=== PATIENT | female | born 1945 | race African-American/Black ===

== ENCOUNTER 2019-10-10 10:25 | Observation (INO) ==
[2019-10-10] MEDS ORDERED: SODIUM CHLORIDE 0.9% 1000ML 1,000 ML IV SCH (11:15)
[2019-10-10 11:35] LABS: Basophils # (auto) 0.02 K/uL (0-0.2); Basophils % (auto) 0.3 %; Eosinophils # (auto) 0.24 K/uL (0-0.5); Eosinophils % (auto) 3.8 %; Hematocrit (blood only) 36.4 % (37-47); Hemoglobin 11.4 g/dL (12.0-16.0); Immature Granulocytes # (auto) 0.02 K/uL (0.00-0.02); Immature Granulocytes % (auto) 0.3 %; Lymphocytes # (auto) 1.88 K/uL (1.2-3.4); Lymphocytes % (auto) 29.5 %; Mean Corpuscular Hemoglobin 28.6 pg (25-34); Mean Corpuscular Hgb Conc 31.3 g/dL (32-36); Mean Corpuscular Volume 91.5 fL (80-100); Mean Platelet Volume 11.1 fL (7.4-10.4); Monocytes # (auto) 0.42 K/uL (0.11-0.59); Monocytes % (auto) 6.6 %; Neutrophils # (auto) 3.79 K/uL (1.4-6.5); Neutrophils % (auto) 59.5 %; Platelet Count 189 K/uL (130-400); RDW Coefficient of Variation 15.5 % (11.5-14.5); RDW Standard Deviation 52.2 fL (36.4-46.3); Red Blood Count 3.98 M/uL (4.2-5.4); White Blood Count 6.37 K/uL (4.8-10.8)
[2019-10-10 11:46] LABS: Partial Thromboplastin Ratio 0.9; Partial Thromboplastin Time 25.4 Seconds (21.0-31.0); Prothrombin Time 10.7 Seconds (9.0-12.0)
[2019-10-10 11:54] LABS: Alanine Aminotransferase 14 U/L (12-78); Aspartate Aminotransferase 8 U/L (15-37); BUN Creatinine Ratio 10.8 (10-20); Blood Urea Nitrogen 13 mg/dl (7-18); Calcium 9.6 mg/dl (8.5-10.1); Carbon Dioxide 24 mmol/L (21-32); Chloride 112 mmol/L (98-107); Est GFR (African American) 52.8; Est GFR (Non-African American) 45.6; Glucose 93 mg/dl (70-99); Magnesium 2.2 mg/dl (1.8-2.4); Potassium 3.1 mmol/L (3.5-5.1); Sodium 142 mmol/L (136-145)
[2019-10-10 11:59] LABS: Alkaline Phosphatase 85 U/L (45-117); Bilirubin,Total 0.3 mg/dl (0.2-1); Globulin 3.9 gm/dl (2.5-4.0); Total Protein 7.9 gm/dl (6.4-8.2); Troponin I < 0.015 ng/ml (0-0.045)
[2019-10-10] MEDS ORDERED: OPTIRAY 320 125ml IV PRN (12:10)
--- NOTE | 2019-10-10 12:19 | Emergency Department Note ---
History of Present Illness General Chief complaint: Abnormal Labs/Diagnostic Testing Stated complaint: SOB, RESULTS OF CAT SCAN OF LUNGS Source: patient Mode of arrival: ambulatory Limitations: no limitations History of Present Illness Provider complaint: SOB, abnl CT scan Onset (ago): hour(s) 1 Maximum Pain Intensity: 0 Associated symptoms: + shortness of breath This patient is a 74-year-old female who presents to the emergency department with complaints of an abnormal CT scan. Patient states she has a thyroid pro blem and had a neck CT with her ENT physician as an outpatient. On that CT they found bilateral pulmonary emboli. The patient was sent here for further management. She complains of some shortness of breath, but denies chest pain or cough. She has had no fever. Patient denies previous history of PE. She denies any significant leg or foot swelling but did state that her shoes were feeling tight this morning. Home Medications Home Medications Medication Instructions Recorded Confirmed Type acetazolamide 500 mg 500 mg PO BID 05/25/19 10/10/19 History capsule,extended release aspirin 81 mg tablet,delayed 81 mg PO DAILY 05/25/19 10/10/19 History release atorvastatin 10 mg tablet 10 mg PO DAILY 05/25/19 10/10/19 History brimonidine 0.2 %-timolol 0.5 % 1 drops OP BID 05/25/19 10/10/19 History eye drops hydrochlorothiazide 12.5 mg tablet 12.5 mg PO DAILY 05/25/19 10/10/19 History latanoprost 0.005 % eye drops 1 drops OP TID ml 05/25/19 10/10/19 History lisinopril 5 mg tablet 5 mg PO DAILY 05/25/19 10/10/19 History pantoprazole 40 mg tablet,delayed 40 mg PO DAILY 05/25/19 10/10/19 History release potassium chloride 10 mEq 10 meq PO DAILY 05/25/19 10/10/19 History tablet,extended release travoprost 0.004 % eye drops 1 drops OP QPM 05/25/19 10/10/19 History uwdguuhb-tht-ipcni acid 0.4 1 tab PO DAILY 05/31/19 10/10/19 History mg-lycopene 300 mcg-lutein 250 mcg tablet omega-3 fatty acids 1,000 mg 1,000 mg PO DAILY 05/31/19 10/10/19 History capsule vitamin E (dl, acetate) 400 unit 400 units PO DAILY 05/31/19 10/10/19 History capsule Allergies Allergy/AdvReac Type Severity Reaction Status Date / Time atorvastatin AdvReac stomach Verified 10/10/19 11:20 upset. brand name ok Past Med/Surg History Medical History (Updated 10/10/19 @ 13:15 by Carisa Collins MD) Thyroid disease (Acute) Social History Preferred Language: Frisian Feels Safe at Home: Yes Smoking Status: Never smoker Review of Systems See HPI for pertinent positives & negatives. and A total of 10 systems reviewed and were otherwise negative Physical Exam Vital Signs Vital Signs - 24 hr 10/10/19 10:29 10/10/19 11:00 10/10/19 11:50 Temperature 36.9 C Temperature Source Oral Pulse Rate 83 62 Pulse Rhythm Regular Respiratory Rate 18 20 Respiratory Effort / Characteristics Non-Labored Respiratory Depth Normal Respiratory Pattern Regular Blood Pressure 128/82 Blood Pressure Mean 97 Blood Pressure Position Sitting Pulse Oximetry 97 95 98 Oxygen Delivery Method Room Air Room Air Room Air Sepsis New/Unexplained Change in Mental Status No Sepsis Action Taken by Nursing No Action Required 10/10/19 12:24 Temperature Temperature Source Pulse Rate 64 Pulse Rhythm Respiratory Rate 22 Respiratory Effort / Characteristics Respiratory Depth Respiratory Pattern Blood Pressure 167/99 H Blood Pressure Mean 121 Blood Pressure Position Pulse Oximetry 99 Oxygen Delivery Method Room Air Sepsis New/Unexplained Change in Mental Status Sepsis Action Taken by Nursing Vital signs reviewed. General: Well-appearing 74-year-old female, in no significant distress. HEENT: No scleral icterus, PERRLA, neck supple. Atraumatic. Cardiovascular: Regular rate and rhythm, no extra sounds. Pulmonary: Clear to auscultation bilaterally, normal work of breathing. Abdomen: Soft, nontender, nondistended, positive bowel sounds. Musculoskeletal: Atraumatic, no peripheral edema. Neurologic: Patient awake alert and oriented x 3 Skin: Warm, dry, no rash Course Administered Medications Sodium Chloride (Nss 1000ml) 1,000 mls @ 125 mls/hr IV .Q8H NAIDA Stop: 10/10/19 19:14 Last Infusion: 10/10/19 11:33 Dose: 0 mls/hr Documented by: [id number] Admin: 10/10/19 11:32 Dose: 125 mls/hr Documented by: [id number] Ioversol (Optiray 320 125ml) 120 ml IV ONCE PRN PRN Reason: Interaction Checking Stop: 10/14/19 12:09 Last Admin: 10/10/19 12:11 Dose: 120 ml Documented by: [id number] Medical Decision Making Differential Diagnosis Differential diagnosis: Etiologies such as infections, reactive airway disease, COPD, pneumonia, pleural effusion, pulmonary edema, ARDS, pneumothorax, CHF, cardiac ischemia, cardiac tamponade, dysrhythmia, anemia, pulmonary embolism, musculoskeletal, gastrointestinal process, as well as others were entertained. Medical Records Attestation: I reviewed the patient's medical records. CT scan with and without contrast performed on 10/09/2019 at 3:13 PM [facility] scan of the neck was performed before and after administration of IV contrast. Comparison made with a nuclear medicine parathyroid scan 08/24/2019 and thyroid ultrasound 08/21/2019 Findings: There are partially imaged bilateral pulmonary emboli in the visualized main and lobar segments of the pulmonary arteries. An arterially enhancing ovoid nodule is seen in the right tracheoesophageal groove posterior to the right thyroid lobe, measuring up to 15 mm in diameter. The node is hypodense to the thyroid gland on noncontrast imaging with an associated polar vessel, and is consistent with a parathyroid adenoma. The thyroid gland is mildly heterogeneous with tiny nodules. No suspicious cer vical lymphadenopathy is identified. The upper aerodigestive tract and major imaged vascular structures are patent. The vocal cords are symmetric. The maxilla and mandible are edentulous. Degenerative changes are present in the cervical spine. Impression: 1. bilateral pulmonary emboli in the visualized main and lobar segments of the pulmonary arteries. 2.15 mm parathyroid adenoma in the right tracheoesophageal groove posterior to the right thyroid lobe. Radiologist: Bryce Bragg Home Medications Current Medication List: was personally reviewed by me Laboratory Data Attestation: I reviewed the patient's lab results. Result diagrams: 10/10/19 11:25 10/10/19 11:25 Lab Results 10/10/19 10/10/19 10/10/19 Range/Units 11:25 11:25 11:25 WBC 6.37 (4.8-10.8) K/uL RBC 3.98 L (4.2-5.4) M/uL Hgb 11.4 L (12.0-16.0) g/dL Hct 36.4 L (37-47) % MCV 91.5 (80-100) fL MCH 28.6 (25-34) pg MCHC 31.3 L (32-36) g/dL RDW Std Deviation 52.2 H (36.4-46.3) fL RDW Coeff of Oscar 15.5 H (11.5-14.5) % Plt Count 189 (130-400) K/uL MPV 11.1 H (7.4-10.4) fL Immature Gran % (Auto) 0.3 % Neut % (Auto) 59.5 % Lymph % (Auto) 29.5 % Bertie % (Auto) 6.6 % Eos % (Auto) 3.8 % Baso % (Auto) 0.3 % Immature Gran # (Auto) 0.02 (0.00-0.02) K/uL Neut # (Auto) 3.79 (1.4-6.5) K/uL Lymph # (Auto) 1.88 (1.2-3.4) K/uL Bertie # (Auto) 0.42 (0.11-0.59) K/uL Eos # (Auto) 0.24 (0-0.5) K/uL Baso # (Auto) 0.02 (0-0.2) K/uL PT 10.7 (9.0-12.0) Seconds INR 1.0 (0.9-1.1) APTT 25.4 (21.0-31.0) Seconds PTT Ratio 0.9 Sodium 142 (136-145) mmol/L Potassium 3.1 L (3.5-5.1) mmol/L Chloride 112 H (98-107) mmol/L Carbon Dioxide 24 (21-32) mmol/L Anion Gap 6.0 (3-11) BUN 13 (7-18) mg/dl Creatinine 1.19 (0.6-1.2) mg/dl Est Cr Clr Drug Dosing Not Reportable Est GFR ( Amer) 52.8 Est GFR (Non-Af Amer) 45.6 BUN/Creatinine Ratio 10.8 (10-20) Glucose 93 (70-99) mg/dl Calcium 9.6 (8.5-10.1) mg/dl Magnesium 2.2 (1.8-2.4) mg/dl Total Bilirubin 0.3 (0.2-1) mg/dl AST 8 L (15-37) U/L ALT 14 (12-78) U/L Alkaline Phosphatase 85 (45-117) U/L Troponin I < 0.015 (0-0.045) ng/ml Total Protein 7.9 (6.4-8.2) gm/dl Albumin 4.0 (3.4-5.0) gm/dl Globulin 3.9 (2.5-4.0) gm/dl Albumin/Globulin Ratio 1.0 (0.9-2) Imaging Data Radiologist's Impression: US venous doppler LE BI CLINICAL HISTORY: 74 years-old Female presenting with acute PE, shortness of breath, evaluate for DVT. TECHNIQUE: Real-time grayscale and color and spectral Doppler ultrasound imaging of the veins of the bilateral lower extremities was performed. Compression and augmentation were also utilized. COMPARISON: None. FINDINGS: RIGHT: Common femoral vein: Patent. Greater saphenous vein (superficial): Patent. Deep femoral vein: Patent. Femoral vein: Patent. Popliteal vein: Patent. Calf veins: Patent. LEFT: Common femoral vein: Filling defect consistent with thrombus, which expands the lumen and is acute appearing. Greater saphenous vein (superficial): Patent. Deep femoral vein: Patent. Femoral vein: Patent. Popliteal vein: Patent. Calf veins: Patent. Other: None. IMPRESSION: 1. Acute deep venous thrombosis in the left common femoral vein. 2. No evidence of deep venous thrombosis in the right lower extremity. The report will be called/faxed according to standard departmental protocol for a critical finding. ACT 112: Negative or not required by law. Electronically signed by: James Connor M.D. 10/10/2019 1:13 PM Dictated: 10/10/19 1310 Transcribed: 10/10/[address] angio chest PE protocol CT DOSE: 487.03 mGycm HISTORY: 74 years-old Female with PE. Acute shortness of breath TECHNIQUE: Multiple CTA images of the chest were obtained after the intravenous administration of 120 ml Optiray 320. Coronal and sagittal MIPS were obtained from the axial data set and were submitted for review. All measurements were obtained according to NASCET criteria. A dose lowering technique was utilized a dhering to the principles of ALARA. COMPARISON: None FINDINGS: CTA: Moderate cardiomegaly. No pericardial effusion. No thoracic aortic aneurysm or dissection. Patency of the imaged great vessels. Pulmonary emboli are noted within the right greater than left main pulmonary arteries extending into the left lower lobar, segmental and subsegmental branches as well as into the lobar, segmental and subsegmental branches of the right upper, middle and lower lobes. No saddle embolus. No evidence of right heart strain. CT CHEST: Heterogeneous and mildly enlarged thyroid. No adenopathy by CT size criteria. Dependent subsegmental bibasilar atelectasis. No large pulmonary infarct. No pneumothorax, pleural effusion or overt pulmonary edema. No airspace consolidation typical for pneumonia. No suspicious pulmonary nodules or masses. Central airways appear patent. Colonic diverticulosis. Nonspecific mildly prominent hepatogastric lymph nodes. Indeterminate mildly hypodense 10 mm lesion of the superior pole right kidney. Soft tissues are unremarkable. Degenerative changes of the shoulders and spine. There are no suspicious osseous lesions. IMPRESSION: 1. Pulmonary emboli of the main, lobar, segmental and subsegmental branches. 2. No evidence of right heart strain, pleural effusion or large pulmonary infarct 3. Cardiomegaly. ACT 112: Negative or not required by law. The above report was generated using voice recognition software. It may contain grammatical, syntax or spelling errors. Electronically signed by: Frandy Aranda M.D. 10/10/2019 12:21 PM Dictated: 10/10/19 1211 Transcribed: 10/10/19 1211 ECG Data Attestation: I personally reviewed and interpreted this ECG as follows: Indication: + chest pain and + SOB/dyspnea Rate (beats per minute): 74 Rhythm: + sinus with SA ECG Intervals/blocks: no Normal QRS (low voltage) ECG Findings: + Q waves (Inferior) and + Other (L atrial enlargement) Additional Comments: An order for cardiac monitoring was placed and the patient is found to be in a normal sinus rhythm at 83 bpm. Blood Pressure Blood Pressure Findings: Normal blood pressure Blood Pressure Disposition: did not require urgent referral MDM Narrative This patient was evaluated and appeared to be in no significant distress. IV access was obtained and laboratory work was drawn. The patient was placed on the cardiac rn and found to be in a normal sinus rhythm. Vital signs have remained stable. CT of the neck was obtained from the outside facility where bilateral pulmonary emboli were discovered. Follow-up chest CT was performed and reaffirms the diagnosis of bilateral pulmonary emboli. Ultrasound of the bilateral lower extremity reveals evidence of an acute DVT in the left common femoral vein. There is no evidence of right heart strain. Patient was given 1 00 mg of subcutaneous Lovenox. EKG reveals sinus rhythm with sinus arrhythmia and left atrial enlargement. Due to the patient's concerning history for a parathyroid adenoma and bilateral PE with an acute DVT in the left common femoral vein, the patient will be evaluated by the hospitalist service for further management. Patient was made aware of the findings and agrees. She was concerned about her glaucoma medications which were ordered as well as a meal tray. The [facility] hospitalist team has been consulted. Impression & Plan Bilateral pulmonary embolism, Parathyroid adenoma Discharge Plan Visit Data Chief Complaint: Abnormal Labs/Diagnostic Testing Stated Complaint: SOB, RESULTS OF CAT SCAN OF LUNGS ED Provider: Carisa Collins Discharge Problem: Bilateral pulmonary embolism, Parathyroid adenoma Forms Stand Alone Forms: [facility] Prescriptions Prescriptions: No Action acetazolamide 500 mg capsule, extended release 500 mg PO BID RF: 0 aspirin [Adult Aspirin Regimen] 81 mg tablet,delayed release (DR/EC) 81 mg PO DAILY RF: 0 Combigan 0.2-0.5 % drops 1 drops OP BID RF: 0 hydrochlorothiazide 12.5 mg tablet 12.5 mg PO DAILY RF: 0 potassium chloride [Klor-Con 10] 10 mEq tablet extended release 10 meq PO DAILY RF: 0 latanoprost 0.005 % drops 1 drops OP TID RF: 0 atorvastatin [Lipitor] 10 mg tablet 10 mg PO DAILY RF: 0 lisinopril 5 mg tablet 5 mg PO DAILY RF: 0 pantoprazole [Protonix] 40 mg tablet,delayed release (DR/EC) 40 mg PO DAILY RF: 0 Travatan Z 0.004 % drops 1 drops OP QPM RF: 0 vitamin E (dl, acetate) 400 unit capsule 400 units PO DAILY RF: 0 omega-3 fatty acids 1,000 mg capsule 1,000 mg PO DAILY RF: 0 Centrum Silver 0.4-300-250 mg-mcg-mcg tablet 1 tab PO DAILY RF: 0
--- NOTE | 2019-10-10 12:23 | CT Scan Report ---
CT angio chest PE protocol CT DOSE: 487.03 mGycm HISTORY: 74 years-old Female with PE. Acute shortness of breath TECHNIQUE: Multiple CTA images of the chest were obtained after the intravenous administration of 120 ml Optiray 320. Coronal and sagittal MIPS were obtained from the axial data set and were submitted for review. All measurements were obtained according to NASCET criteria. A dose lowering technique w as utilized adhering to the principles of ALARA. COMPARISON: None FINDINGS: CTA: Moderate cardiomegaly. No pericardial effusion. No thoracic aortic aneurysm or dissection. Patency of the imaged great vessels. Pulmonary emboli are noted within the right greater than left main pulmona ry arteries extending into the left lower lobar, segmental and subsegmental branches as well as into the lobar, segmental and subsegmental branches of the right upper, middle and lower lobes. No saddle embolus. No evidence of right heart strain. CT CHEST: Heterogeneous and mildly enlarged thyroid. No adenopathy by CT size criteria. Dependent subsegmental bibasilar atelectasis. No large pulmonary infarct. No pneumothorax, pleural effusion or overt pulmona ry edema. No airspace consolidation typical for pneumonia. No suspicious pulmonary nodules or masses. Central airways appear patent. Colonic diverticulosis. Nonspecific mildly prominent hepatogastric lymph nodes. Indeterminate mildly hypodense 10 mm lesion of the superior pole right kidney. Soft tissues are unremarkable. Degenerative changes of the shoulders and spine. There are no suspicious osseous lesions. IMPRESSION: 1. Pulmonary emboli of the main, lobar, segmental and subsegmental branches. 2. No evidence of right heart strain, pleural effusion or large pulmonary infarct 3. Cardiomegaly. ACT 112: Negative or not required by law. The above report was generated using voice recognition software. It may contain grammatical, syntax o r spelling errors. Electronically signed by: Frandy Aranda M.D. 10/10/2019 12:21 PM
[2019-10-10] MEDS ORDERED: ENOXAPARIN 100 MG/1ML SYR SQ ONE (12:48)
[2019-10-10] MEDS ORDERED: BRIMONIDINE TART 0.2% OP SOLN PER DROP CHARGE OP STA (13:07)
[2019-10-10] MEDS ORDERED: TIMOLOL MALEATE 0.5% OP SOLN 5 ML BTL OP STA (13:07)
[2019-10-10] MEDS ORDERED: acetaZOLAMIDE 250 MG TAB PO STA (13:07)
[2019-10-10] MEDS ORDERED: LATANOPROST 0.005% OP SOLN 2.5 ML BTL OP STA (13:11)
--- NOTE | 2019-10-10 13:14 | Ultrasound Report ---
US venous doppler LE BI CLINICAL HISTORY: 74 years-old Female presenting with acute PE, shortness of breath, evaluate for DVT . TECHNIQUE: Real-time grayscale and color and spectral Doppler ultrasound imaging of the veins of the bilateral lower extremities was performed. Compression and augmentation were also utilized. COMPARISON: None. FINDINGS: RIGHT: Common femoral vein: Patent. Greater saphenous vein (superficial): Patent. Deep femoral vein: Patent. Femoral vein: Patent. Popliteal vein: Patent. Calf veins: Patent. LEFT: Common femoral vein: Filling defect consistent with thrombus, which expands the lumen and is acute ap pearing. Greater saphenous vein (superficial): Patent. Deep femoral vein: Patent. Femoral vein: Patent. Popliteal vein: Patent. Calf veins: Patent. Other: None. IMPRESSION: 1. Acute deep venous thrombosis in the left common femoral vein. 2. No evidence of deep venous thrombosis in the right lower extremity. The report will be called/faxed according to standard departmental protocol for a critical finding. ACT 112: Negative or not required by law. Electronically signed by: James Connor M.D. 10/10/2019 1:13 PM
[2019-10-10] MEDS ORDERED: BRIMONIDINE TARTRATE 0.2% 5ML OP SCH (13:30)
[2019-10-10] MEDS ORDERED: POTASSIUM CHLORIDE 20 MEQ TABCR PO STA (13:55)
--- NOTE | 2019-10-10 14:03 | History & Physical Report ---
Date of Service October 10, 2019 Assessment & Plan (1) Bilateral pulmonary embolism: (2) DVT (deep venous thrombosis): Pt is 74 y/o F with PMH hyperparathyroidism, h/o hypercalcemia, thyroid nodules, CKD III, GERD, HTN, HLD presented to ER for incidental PE's found out outpatient CT neck on 10/09/2019 Denies any increased SOB, CP, denies pleuritic CP, LE edema or warmth, or new BLE pain. In ER Afebrile, P: 83, R: 18, BP: 128/82, 167/99, 97% on RA CTA CHEST:1. Pulmonary emboli of the main, lobar, segmental and subsegmental branches. 2. No evidence of right heart strain, pleural effusion or large pulmonary infarct. 3. Cardiomegaly. BLE VENOUS DOPPLER: 1. Acute deep venous thrombosis in the left common femoral vein. 2. No evidence of deep venous thrombosis in the right lower extremity. -In ER given Lovenox 1mg/kg -Pt without CP, SOB, hypoxia or tachycardia -Continue with Lovenox SQ for now with plan to transition or oral agent -CBC, BMP in am (3) Hypokalemia: K: 3.1 -Replace and monitor -Plan to resume pt's home potassium 10meq daily (4) HTN (hypertension): -Continue lisinopril, HCTZ (5) CKD (chronic kidney disease), stage III: Cr: 1.19. 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 Previous US neck showed possible parathyroid adenoma. It was recommended she follow with ENT for parathyroidectomy. ENT- Dr Bateman at [facility]; planning for parathyroidectomy in the future 4D CT neck on 10/09/2019: bilateral pulmonary emboli in main and lobar segments, 15mm parathyroid adenoma in the right tracheoesophageal groove posterior to the right thyroid lobe (8) GERD (gastroesophageal reflux disease): -Continue PPI (9) HLD (hyperlipidemia): -Continue Lipitor DVT Prophylaxis -On Lovenox for PE, DVT that were present upon arrival Full Code as per discussion with pt Follows with Dr Pate for routine care Pt was seen and care coordinated with Dr Pereira. See addendum History of Present Illness Chief Complaint: Abnormal neck ct scan Primary Care Provider: Yosvany Pate DO Pt is 74 y/o F with PMH hyperparathyroidism, h/o hypercalcemia, thyroid nodules, CKD III, GERD, HTN, HLD presented to ER for incidental PE's found out outpatient CT neck yesterday. Pt following with endocrine - Dr Garcia at [facility] for hyperparathyroidism. Previous US neck showed possible parathyroid adenoma. It was recommended she follow with ENT for parathyroidectomy. Pt seen by ENT Dr Bateman at [facility] and had 4D CT neck on 10/09/2019 with results of bilateral pulmonary emboli in main and lobar segments, 15mm parathyroid adenoma in the right tracheoesophageal groove posterior to the right thyroid lobe. Pt was referred to ER today for further evaluation. Pt reports SOB with exertion for greater than one year and denies any increased SOB recently. Reports intermittent "twinge" to her left chest that lasts a few seconds and can occur at rest or walking that has occurred for at least one year. Denies any increased CP or pleuritic CP. Denies cough, dizziness, syncope. Pt reports chronic knee pain with radiation down leg with walking. Denies any noted edema or warmth to lower extremities and denies any other extremity pain. No recent surgery or procedure. States less active over the years as she is afraid if walks too much her legs will give out and she will fall. No personal h/o DVT or PE in past. Reports her mother had H/O blood clots age 80's. Denies fever/chills, diaphoresis, N/V/D/C, CABRERA, dizziness, syncope, vision changes, neck pain, orthopnea, palpitations, cough, sore throat, choking, otalgia, rhinorrhea, abdominal pain, paresthesias, rashes, urinary symptoms. Allergies Allergy/AdvReac Type Severity Reaction Status Date / Time atorvastatin AdvReac stomach Verified 10/10/19 11:20 upset. brand name ok Home Medications Home Medications Medication Instructions Recorded Confirmed Type acetazolamide 500 mg 500 mg PO BID 05/25/19 10/10/19 History capsule,extended release aspirin 81 mg tablet,delayed 81 mg PO DAILY 05/25/19 10/10/19 History release brimonidine 0.2 %-timolol 0.5 % 1 drops OP BID 05/25/19 10/10/19 History eye drops hydrochlorothiazide 12.5 mg tablet 12.5 mg PO PM 05/25/19 10/10/19 History latanoprost 0.005 % eye drops 1 drops OP TID ml 05/25/19 10/10/19 History lisinopril 5 mg tablet 5 mg PO PM 05/25/19 10/10/19 History pantoprazole 40 mg tablet,delayed 40 mg PO DAILY 05/25/19 10/10/19 History release potassium chloride 10 mEq 10 meq PO DAILY 05/25/19 10/10/19 History tablet,extended release travoprost 0.004 % eye drops 1 drops OP QPM 05/25/19 10/10/19 History skfcorkm-dxh-pdmfk acid 0.4 1 tab PO DAILY 05/31/19 10/10/19 History mg-lycopene 300 mcg-lutein 250 mcg tablet omega-3 fatty acids 1,000 mg 1,000 mg PO DAILY 05/31/19 10/10/19 History capsule vitamin E (dl, acetate) 400 unit 400 units PO DAILY 05/31/19 10/10/19 History capsule atorvastatin [Lipitor] 10 mg PO PM 10/10/19 10/10/19 History Past Med/Surg History Medical History CKD (chronic kidney disease), stage III GERD (gastroesophageal reflux disease) HLD (hyperlipidemia) HTN (hypertension) Thyroid disease (Acute) Surgical History Hx of tonsillectomy Family History Other Diabetes Social History Preferred Language: [place] Leonean Feels Safe at Home: Yes Smoking Status: Never smoker Review of Systems Review of Systems: All systems reviewed & are unremarkable except as noted in HPI & below Physical Exam Physical Exam: General: no distress, overweight Head: normocephalic, atraumatic Eyes: PERRL, EOM's intact, conjunctiva non-injected, anicteric ENT: normal inspection external ears, nose, mucous membranes moist Neck: supple, trachea midline Lungs: clear, no respiratory distress, no wheezing/rhonchi/rales; talkative and speaks in full sentences CV: RRR, no pretibial edema Abd: normal BS, soft, non-tender Ext: no cyanosis, no calf tenderness; scattered spider veins to BLE Neuro: A&O x 3, no focal deficits noted, normal affect Skin: warm, dry Results & Data Results & Data ([facility]) Vital Signs (Past 12 Hours) Vital Signs Temp Pulse Resp BP Pulse Ox 10/10/19 12:24 64 22 167/99 H 99 10/10/19 11:50 62 20 98 10/10/19 11:00 95 10/10/19 10:29 36.9 C 83 18 128/82 97 Laboratory Results Short CBC 10/10/19 Range/Units 11:25 WBC 6.37 (4.8-10.8) K/uL Hgb 11.4 L (12.0-16.0) g/dL Hct 36.4 L (37-47) % Plt Count 189 (130-400) K/uL BMP 10/10/19 11:25 Sodium 142 Potassium 3.1 L Chloride 112 H Carbon Dioxide 24 BUN 13 Creatinine 1.19 Glucose 93 Calcium 9.6 Cardiac Enzymes 10/10/19 Range/Units 11:25 Troponin I < 0.015 (0-0.045) ng/ml Liver Function 10/10/19 Range/Units 11:25 Total Bilirubin 0.3 (0.2-1) mg/dl AST 8 L (15-37) U/L ALT 14 (12-78) U/L Alkaline Phosphatase 85 (45-117) U/L Albumin 4.0 (3.4-5.0) gm/dl Diagnostic Findings CTA CHEST: IMPRESSION: 1. Pulmonary emboli of the main, lobar, segmental and subsegmental branches. 2. No evidence of right heart strain, pleural effusion or large pulmonary infarct 3. Cardiomegaly. BLE VENOUS DOPPLER: IMPRESSION: 1. Acute deep venous thrombosis in the left common femoral vein. 2. No evidence of deep venous thrombosis in the right lower extremity. ECG Rhythm: sinus with SA Code Status & VTE Plan VTE Prophylaxis Plan VTE Prophylaxis will be ordered: Yes Supervising Physician Co-Signing Physician Notes Attending addendum; The patient was seen and examined in medical telemetry unit She is 74-year-old female with significant past medical history of hyperparathyroidism under investigation for possible surgery, thyroid nodule, CKD stage III, hypertension, hyperlipidemia and GERD was brought into emergency room with abnormal CT scan finding of the neck which showed pulmonary embolism. She has been complaining of shortness of breath with exertion for the last 1 year or so Denies any chest pain and/or palpitation, no fever and/or chills CTA did show extensive bilateral pulmonary embolism and ultrasound which showed left lower extremity DVT On examination No apparent distress at rest Hemodynamically stable Chest-clear to auscultate bilaterally Heart-S1-S2, regular Abdomen-benign Extremities-trace edema bilaterally more on the left than the right DIRECTOR BROADCAST-alert, awake and oriented x3 Admission labs and imaging studies reviewed CTA did show pulmonary emboli of the main, lobar, segmental and subsegmental branches without any evidence of right heart strain or any pulmonary infarct Started with subcu Lovenox and discussed with the patient about oral anticoagulants with Coumadin or NOAC History of blood clot with mother Agree with assessment and plan as outlined above by HEDY Montez Dr
[2019-10-10] MEDS ORDERED: lisinopriL 5 MG TAB PO SCH (14:59)
[2019-10-10] MEDS ORDERED: ENOXAPARIN 1 MG/KG SQ SCH (14:59)
[2019-10-10] MEDS ORDERED: hydroCHLOROthiazide 25 MG TAB PO SCH (14:59)
[2019-10-10] MEDS ORDERED: ACETAMINOPHEN 325 MG TAB PO PRN (14:59)
[2019-10-10] MEDS ORDERED: LATANOPROST 0.005% OP SOLN 2.5 ML BTL OP SCH (14:59)
[2019-10-10] MEDS ORDERED: POTASSIUM CHLORIDE 20 MEQ TABCR PO ONE (18:00)
[2019-10-10] MEDS: acetaZOLAMIDE 500 MG CAPCR PO SCH (20:47)
[2019-10-10] MEDS ORDERED: TRAVOPROST Z 0.004% OPH SOLN 2.5 ML BTL OP SCH (21:00)
[2019-10-10] MEDS ORDERED: ATORVASTATIN 10 MG TAB PO SCH (21:00)
[2019-10-11] MEDS ORDERED: ENOXAPARIN 100 MG/1ML SYR SQ SCH ×2 (01:00→12:00)
[2019-10-11 05:30] LABS: Hematocrit (blood only) 36.9 % (37-47); Hemoglobin 11.4 g/dL (12.0-16.0); Mean Corpuscular Hemoglobin 28.4 pg (25-34); Mean Corpuscular Hgb Conc 30.9 g/dL (32-36); Mean Corpuscular Volume 91.8 fL (80-100); Mean Platelet Volume 10.8 fL (7.4-10.4); Platelet Count 190 K/uL (130-400); RDW Coefficient of Variation 15.6 % (11.5-14.5); RDW Standard Deviation 52.4 fL (36.4-46.3); Red Blood Count 4.02 M/uL (4.2-5.4); White Blood Count 6.73 K/uL (4.8-10.8)
[2019-10-11 05:58] LABS: BUN Creatinine Ratio 7.8 (10-20); Calcium 10.1 mg/dl (8.5-10.1); Est GFR (African American) 47.5; Potassium 3.2 mmol/L (3.5-5.1)
[2019-10-11] MEDS: acetaZOLAMIDE 500 MG CAPCR PO SCH (07:58)
[2019-10-11] MEDS ORDERED: ASPIRIN 81 MG ECTAB PO SCH (09:00)
[2019-10-11] MEDS ORDERED: POTASSIUM CHLORIDE 20 MEQ TABCR PO ONE (09:00)
[2019-10-11] MEDS ORDERED: POTASSIUM CHLORIDE 10 MEQ TABCR PO SCH (09:00)
[2019-10-11] MEDS ORDERED: PANTOprazole 40 MG TAB PO SCH (09:00)
[2019-10-11] MEDS ORDERED: CEROVITE ADV FORMULA TAB PO SCH (09:00)
[2019-10-11] MEDS ORDERED: APIXABAN 5 MG TABLET PO SCH (12:00)
--- NOTE | 2019-10-11 14:45 | Electrocardiogram Report ---
Test Reason : Blood Pressure : / mmHG Vent. Rate : 074 BPM Atrial Rate : 074 BPM P-R Int : 206 ms QRS Dur : 076 ms QT Int : 402 ms P-R-T Axes : 018 -28 -01 degrees QTc Int : 446 ms Poor data quality, interpretation may be adversely affected Sinus rhythm with marked sinus arrhythmia Possible Left atrial enlargement Low voltage QRS Borderline ECG No previous ECGs available Confirmed by Fernando Morales ([id number]) on 10/11/2019 2:44:50 PM Referred By: REFERRED SELF Confirmed By:Fernando Morales
--- NOTE | 2019-10-11 14:45 | Hospitalist Progress Note ---
Date of Service October 11, 2019 Assessment & Plan (1) Bilateral pulmonary embolism: (2) DVT (deep venous thrombosis): Pt is 74 y/o F with PMH hyperparathyroidism, h/o hypercalcemia, thyroid nodules, CKD III, GERD, HTN, HLD presented to ER for incidental PE's found out outpatient CT neck on 10/09/2019 Denies any increased SOB, CP, denies pleuritic CP, LE edema or warmth, or new BLE pain. CTA CHEST showed evidence of Pulmonary emboli of the main, lobar, segmental and subsegmental branches. No evidence of right heart strain, pleural effusion or large pulmonary infarct. BLE VENOUS DOPPLER showed acute deep venous thrombosis in the left common femoral vein. No evidence of deep venous thrombosis in the right lower extremity. 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 Previous US neck showed possible parathyroid adenoma. It was recommended she follow with ENT for parathyroidectomy. ENT- Dr Bateman at [facility]; planning for parathyroidectomy in the future 4D CT neck on 10/09/2019: bilateral pulmonary emboli in main and lobar segments, 15mm parathyroid adenoma in the right tracheoesophageal groove posterior to the right thyroid lobe (8) GERD (gastroesophageal reflux disease): Continue PPI (9) HLD (hyperlipidemia): Continue Lipitor DVT Prophylaxis On Lovenox, transition to Eliquis CODE Status Full Code Disposition Will discharge home today Update provided to roxana Debbie Follow up with Dr. Torres on 10/16 @ 11:20 AM Admission and Anticipated Discharge Date Admission Date: October 10, 2019 Subjective Pt was seen and examined Lying in bed with no distress Pt said that she feels ok She said that he does have SOB on exertion Update provided to the daughter Debbie over the phone Denies any chest pain, palpitation, dizziness and SOB Physical Exam Physical Exam: General- No acute distress Head- atraumatic Eyes- PERRL, EOMI, ENT- oropharynx clear Neck- supple, no JVD Lungs- clear to auscultation Heart- regular rhythm; no murmur Abdomen- normal bowel sounds, soft, nontender Extremities- no calf tenderness Neuro- alert, oriented x 3; PERRL, EOMI; no facial palsy; no dysarthria Skin- warm & dry Results & Data Results & Data ([facility]) Vital Signs (Past 12 Hours) Vital Signs Temp Pulse Pulse Resp BP BP Pulse Ox 10/11/19 11:35 37.0 C 64 20 151/84 H 100 10/11/19 07:38 66 10/11/19 06:26 36.9 C 78 19 109/72 99 10/11/19 03:58 36.4 C L 87 18 116/78 97
--- NOTE | 2019-10-13 21:51 | Discharge Summary ---
Date of Service October 11, 2019 Admission HPI Per Admitting Provider Pt is 74 y/o F with PMH hyperparathyroidism, h/o hypercalcemia, thyroid nodules, CKD III, GERD, HTN, HLD presented to ER for incidental PE's found out outpatient CT neck yesterday. Pt [place] with [place] [facility] [place]. Previous US neck showed possible parathyroid adenoma. It was recommended she follow with ENT for parathyroidectomy. Pt seen by ENT Dr Bateman at [facility] and had 4D CT neck on 10/09/2019 with results of bilateral pulmonary emboli in main and lobar segments, 15mm parathyroid adenoma in the right tracheoesophageal groove posterior to the right thyroid lobe. Pt was r eferred to ER today for further evaluation. Pt reports SOB with exertion for greater than one year and denies any increased SOB recently. Reports intermittent "twinge" to her left chest that lasts a few seconds and can occur at rest or walking that has occurred for at least one year. Denies any increased CP or pleuritic CP. Denies cough, dizziness, syncope. Pt reports chronic knee pain with radiation down leg with walking. Denies any noted edema or warmth to lower extremities and denies any other extremity pain. No recent surgery or procedure. States less active over the years as she is afraid if walks too much her legs will give out and she will fall. No personal h/o DVT or PE in past. Reports her mother had H/O blood clots age 80's. Denies fever/chills, diaphoresis, N/V/D/C, CABRERA, dizziness, syncope, vision changes, neck pain, orthopnea, palpitations, cough, sore throat, choking, otalgia, rhinorrhea, abdominal pain, paresthesias, rashes, urinary symptoms. Admission Exam Per Admitting Provider No apparent distress at rest Hemodynamically stable Chest-clear to auscultate bilaterally Heart-S1-S2, regular Abdomen-benign Extremities-trace edema bilaterally more on the left than the right [employer]-alert, awake and oriented x3 Principal Diagnosis (1) Bilateral pulmonary embolism: (2) DVT (deep venous thrombosis): (3) Hypokalemia: (4) HTN (hypertension): (5) CKD (chronic kidney disease), stage III: (6) Hyperparathyroidism: (7) Parathyroid adenoma: (8) GERD (gastroesophageal reflux disease): (9) HLD (hyperlipidemia): Discharge Exam General- No acute distress Head- atraumatic Eyes- PERRL, EOMI, ENT- oropharynx clear Neck- supple, no JVD Lungs- clear to auscultation Heart- regular rhythm; no murmur Abdomen- normal bowel sounds, soft, nontender Extremities- no calf tenderness Neuro- alert, oriented x 3; PERRL, EOMI; no facial palsy; no dysarthria Skin- warm & dry Discharge Data Allergies Allergy/AdvReac Type Severity Reaction Status Date / Time atorvastatin AdvReac stomach Verified 10/10/19 11:20 upset. brand name ok Consultations 10/10/19 13:01 ED Decision to Admit Stat 10/10/19 14:59 Consult Case Management - Discharge Planning Routine Ordered Studies 10/10/19 11:14 US venous doppler LE BI Stat 10/10/19 11:17 CT angio chest PE protocol Stat US venous doppler LE BI CLINICAL HISTORY: 74 years-old Female presenting with acute PE, shortness of breath, evaluate for DVT. TECHNIQUE: Real-time grayscale and color and spectral Doppler ultrasound imaging of the veins of the bilateral lower extremities was performed. Compression and augmentation were also utilized. COMPARISON: None. FINDINGS: RIGHT: Common femoral vein: Patent. Greater saphenous vein (superficial): Patent. Deep femoral vein: Patent. Femoral vein: Patent. Popliteal vein: Patent. Calf veins: Patent. LEFT: Common femoral vein: Filling defect consistent with thrombus, which expands the lumen and is acute appearing. Greater saphenous vein (superficial): Patent. Deep femoral vein: Patent. Femoral vein: Patent. Popliteal vein: Patent. Calf veins: Patent. Other: None. IMPRESSION: 1. Acute deep venous thrombosis in the left common femoral vein. 2. No evidence of deep venous thrombosis in the right lower extremity. The report will be called/faxed according to standard departmental protocol for a critical finding. ACT 112: Negative or not required by law. Electronically signed by: James Connor M.D. 10/10/2019 1:13 PM Dictated: 10/10/19 1310 Transcribed: 10/10/[address] angio chest PE protocol CT DOSE: 487.03 mGycm HISTORY: 74 years-old Female with PE. Acute shortness of breath TECHNIQUE: Multiple CTA images of the chest were obtained after the intravenous administration of 120 ml Optiray 320. Coronal and sagittal MIPS were obtained from the axial data set and were submitted for review. All measurements were obtained according to NASCET criteria. A dose lowering technique was utilized adhering to the principles of ALARA. COMPARISON: None FINDINGS: CTA: Moderate cardiomegaly. No pericardial effusion. No thoracic aortic aneurysm or dissection. Patency of the imaged great vessels. Pulmonary emboli are noted within the right greater than left main pulmonary arteries extending into the left lower lobar, segmental and subsegmental branches as well as into the lobar, segmental and subsegmental branches of the right upper, middle and lower lobes. No saddle embolus. No evidence of right heart strain. CT CHEST: Heterogeneous and mildly enlarged thyroid. No adenopathy by CT size criteria. Dependent subsegmental bibasilar atelectasis. No large pulmonary infarct. No pneumothorax, pleural effusion or overt pulmonary edema. No airspace consolidation typical for pneumonia. No suspicious pulmonary nodules or masses. Central airways appear patent. Colonic diverticulosis. Nonspecific mildly prominent hepatogastric lymph nodes. Indeterminate mildly hypodense 10 mm lesion of the superior pole right kidney. Soft tissues are unremarkable. Degenerative changes of the shoulders and spine. There are no suspicious osseous lesions. IMPRESSION: 1. Pulmonary emboli of the main, lobar, segmental and subsegmental branches. 2. No evidence of right heart strain, pleural effusion or large pulmonary infarct 3. Cardiomegaly. ACT 112: Negative or not required by law. The above report was generated using voice recognition software. It may contain grammatical, syntax or spelling errors. Electronically signed by: Frandy Aranda M.D. 10/10/2019 12:21 PM Dictated: 10/10/19 1211 Transcribed: 10/10/19 1211 Hospital Course (1) Bilateral pulmonary embolism: (2) DVT (deep venous thrombosis): Pt is 74 y/o F with PMH hyperparathyroidism, h/o hypercalcemia, thyroid nodules, CKD III, GERD, HTN, HLD presented to ER for incidental PE's found out outpatient CT neck on 10/09/2019 Denies any increased SOB, CP, denies pleuritic CP, LE edema or warmth, or new BLE pain. CTA CHEST showed evidence of Pulmonary emboli of the main, lobar, segmental and subsegmental branches. No evidence of right heart strain, pleural effusion or large pulmonary infarct. BLE VENOUS DOPPLER showed acute deep venous thrombosis in the left common femoral vein. No evidence of deep venous thrombosis in the right lower extremity. Lovenox therapeutic dose started anticoagulant discuss with patient between [place] and DOAVC Pt understands the risk of bleeding while on anticoagulant Case management checked the cost for Eliquis, and it will only cost pt less than $4 Clinically stable Follow up with PCP (3) Hypokalemia: K: 3.2 today K replaced Monitor BMP (4) HTN (hypertension): Continue lisinopril, HCTZ Monitor BP (5) CKD (chronic kidney disease), stage III: Creatinine 1.3 today Baseline Cr: 1.1-1.2 Continue Monitor BMP Avoid nephrotoxic agents when possible (6) Hyperparathyroidism: (7) Parathyroid adenoma: Liquid Compounder [place] [facility] [facility] [place]. Previous US neck showed possible parathyroid adenoma. It was recommended she follow with ENT for parathyroidectomy. ENT- Dr Bateman at [facility]; planning for parathyroidectomy in the future 4D CT neck on 10/09/2019: bilateral pulmonary emboli in main and lobar segments, 15mm parathyroid adenoma in the right tracheoesophageal groove posterior to the right thyroid lobe (8) GERD (gastroesophageal reflux disease): Continue PPI (9) HLD (hyperlipidemia): Continue Lipitor DVT Prophylaxis On Lovenox, transition to Eliquis CODE Status Full Code Disposition Will discharge home today Update provided to roxana Lewis Follow up with Dr. Torres on 10/16 @ 11:20 AM Total Time Total Time Spent Total Time Spent (In Minutes): 10 minutes Total Time Includes: Examination of the Patient, Discharge Planning, Medication Reconciliation, Communication With Other Providers and Other Discharge Plan Discharge Items Patient Disposition: Home - Self-Care Reason For Visit: PE Discharge Diagnosis: (1) Bilateral pulmonary embolism: (2) DVT (deep venous thrombosis): (3) Hypokalemia: (4) HTN (hypertension): (5) CKD (chronic kidney disease), stage III: (6) Hyperparathyroidism: (7) Parathyroid adenoma: (8) GERD (gastroesophageal reflux disease): (9) HLD (hyperlipidemia): Activity: Resume your previous activity Non-emergency contact: Primary Care Provider Call non-emergency contact if: you have any medication questions Follow-up/Referrals: Yosvany Pate DO [Primary Care Provider] - 10/17/19 11:20 am Diet: Heart Healthy Addtl Attending Provider Instructions: Follow up with your primary care provider Dr. Pate on 10/17/19 Check BMP in 1 week to monitor electrolytes and renal function Fall precaution Seek medical attention if you develop any abnormal bleeding Medication Instructions: Eliquis Your condition is typically treated with an anticoagulant. Anticoagulants will thin your blood to help prevent new clots. You should take her medication exactly as directed. Never skip a dose. Never take a double dose. If you miss a dose, take it as soon as you remember. Avoid NSAIDs (Motrin, Aleve, Naproxen, Ibuprofen, Advil, Meloxicam,..) due to risks of bleeding Call your Primary Care doctor if you experience any of the following: Swelling or Pain in your leg Sudden, continuous pain deep in a muscle Pain that worsens when you are active or when you stand still for a long time Chest Pain Sudden Shortness of Breath Rapid or pounding heart beat Fainting Dizziness Cough with blood or bloody sputum Sweating more than normal Bruises Heavy or uncontrolled bleeding Blood in your urine, stool or vomit Black or tarry stools Caring for Your Self at Home: Avoid sitting, standing or lying down for long periods without moving your legs and feet When traveling by car, stop to get out and move around at least once every 3 hours On long airplane, train or bus rides, get up and move around when possible If you can't get up, wiggle your toes and tighten your calves to keep your blood moving It is important for you to keep your follow up appointments with your medical provider. Pending Studies at Discharge: No Stand-Alone Forms: My [employer], Smoking Cessation Medications and DC Order Prescriptions: New Eliquis 5 mg tablet 5 mg PO UD Qty: 74 RF: 0 Continued acetazolamide 500 mg capsule, extended release 500 mg PO BID RF: 0 aspirin [Adult Aspirin Regimen] 81 mg tablet,delayed release (DR/EC) 81 mg PO DAILY RF: 0 Combigan 0.2-0.5 % drops 1 drops OP BID RF: 0 hydrochlorothiazide 12.5 mg tablet 12.5 mg PO PM RF: 0 latanoprost 0.005 % drops 1 drops OP TID RF: 0 lisinopril 5 mg tablet 5 mg PO PM RF: 0 pantoprazole [Protonix] 40 mg tablet,delayed release (DR/EC) 40 mg PO DAILY RF: 0 Travatan Z 0.004 % drops 1 drops OP QPM RF: 0 vitamin E (dl, acetate) 400 unit capsule 400 units PO DAILY RF: 0 omega-3 fatty acids 1,000 mg capsule 1,000 mg PO DAILY RF: 0 Centrum Silver 0.4-300-250 mg-mcg-mcg tablet 1 tab PO DAILY RF: 0 atorvastatin [Lipitor] 10 mg tablet 10 mg PO PM RF: 0 Changed potassium chloride [Klor-Con 10] 10 mEq tablet extended release 20 meq PO DAILY Qty: 30 RF: 0 Discharge Orders: Discharge Order (Routine); Ordered 10/11/19 Ordered By: Yasir Corona/Other Patient Handouts: DVT, DVT Complications Admission Data Admit Date/Time: 10/10/19 13:23 Attending Provider: Yasir Price Admit Provider: Karthik Pereira Primary Care Provider: Yosvany Pate Other Providers: Karthik Pereira Other Interventions: Discharge Summary Assessment (RN) Last Done: 10/11/19 15:14 DC Date/Time DO NOT enter until pt leaves facility: 10/11/19 16:52
[2019-10-19] MEDS ORDERED: APIXABAN 5 MG TABLET PO SCH (12:00)
== END 2019-10-11 16:52 | disposition home or self-care (01) ==
LOC: 2W 10:25 → ED 10:25 → SUATTDRO 13:23 → 2W 14:30
DX: I26.99 Other pulmonary embolism without acute cor pulmonale; Z79.82 Long term (current) use of aspirin; Z88.8 Allergy status to other drugs, medicaments and biological substances; N18.3 Chronic kidney disease, stage 3 (moderate); E21.3 Hyperparathyroidism, unspecified; I82.412 Acute embolism and thrombosis of left femoral vein; E78.5 Hyperlipidemia, unspecified; Z79.899 Other long term (current) drug therapy; E87.6 Hypokalemia; I12.9 Hypertensive chronic kidney disease with stage 1 through stage 4 chronic kidney disease, or unspecified chronic kidney disease; E04.1 Nontoxic single thyroid nodule; D35.1 Benign neoplasm of parathyroid gland; K21.9 Gastro-esophageal reflux disease without esophagitis

== ENCOUNTER 2024-03-20 21:54 | Inpatient (IN) ==
--- NOTE | 2024-03-20 22:19 | Emergency Department Note ---
Impression & Plan Altered mental status, unspecified ADMIT ED Provider Note HPI: History obtained from patient's daughter at the bedside. The patient is a 78-year-old female with history of DVT, chronic kidney disease, hypertension, hyperlipidemia, pulmonary embolism, currently on Eliquis, presents the emergency department with a chief complaint of confusion since yesterday. According to the patient's daughter the patient seemed to be exhibiting some mild confusion since yesterday, she states that the patient today seem to not be eating and when she asked her why she was not eating she stated that there was no food in the house. Patient's daughter states that this was not true and she found this somewhat perplexing. They took the patient down for dinner tonight and the patient seemed to be exhibiting some increased confusion, she cut her food up into small pieces but would not eat it, she had to some difficulty going to the restroom as well and required her daughter to assist her. Patient overall just seems confused and is not answering questions the way she normally would. On arrival here to the ED on my assessment the patient does not have any obvious focal deficits, she is oriented to self and place but not time, blood sugars within normal limits on arrival, patient is otherwise hemodynamically stable on arrival. ROS: - Per HPI Differential Diagnosis: Acute ischemic stroke, hemorrhagic stroke, sepsis, urinary tract infection, pneumonia, critical electrolyte abnormalities, acute kidney injury/acute dehydration, brain mass/tumor, labile blood sugar, amongst other potential pathologies. *Outpatient medications and allergy history reviewed. PE: General: Alert, follows commands HEENT: Normocephalic, trachea midline Eyes: Extraocular eye movement is intact, no scleral erythema Pulmonary: Clear to auscultation bilaterally, no wheezing Cardio: Regular rate and rhythm GI: Abdomen is soft to palpation : No suprapubic tenderness MSK: No evidence of trauma or malformation of the extremities, no edema Skin: No evidence of rash Neuro: Alert, no focal deficits, equal bilateral network development coordinator strength, no ataxia on [id number] testing, no drift of the upper extremities or lower extremities with testing against gravity Psychiatric: Cooperative INDEPENDENT INTERPRETATIONS: cryptologic technician operator/analyst: (As interpreted by myself): - An order was placed for continuous cardiac monitoring - Patient was noted to be in sinus rhythm with a rate of 95 EKG: (As interpreted by myself): Rate: 119 Rhythm: Sinus tachycardia Intervals: Within normal limits ST changes: No ST elevation Time: 2215 Chest x-ray: (As interpreted by myself): No acute disease Interventions provided in ED: -IV normal saline maintenance fluid NIH STROKE SCALE: 1A: Level of consciousness Alert; keenly responsive 0 1B: Ask month and age 1 question right +1 1C: 'Blink eyes' & 'squeeze hands' Performs both tasks 0 2: Horizontal extraocular movements Normal 0 3: Visual mosley No visual loss 0 4: Facial palsy Normal symmetry 0 5A: Left arm motor drift No drift for 10 seconds 0 5B: Right arm motor drift No drift for 10 seconds 0 6A: Left leg motor drift No drift for 5 seconds 0 6B: Right leg motor drift No drift for 5 seconds 0 7: Limb Ataxia No ataxia 0 8: Sensation Normal; no sensory loss 0 9: Language/aphasia Normal; no aphasia 0 10: Dysarthria Normal 0 11: Extinction/inattention No abnormality 0 TOTAL NIH SCORE =1 Medical Decision Making: Shortly after the patient arrived IV was established and lab work ordered, patient was sent to the CT scanner for CT imaging of the head without contrast as well as CT angiography of the head and neck. Patient is noted to be well outside the window for any potential thrombolysis if stroke was noted. She developed symptoms yesterday. CT imaging does not show any obvious evidence of stroke or hemorrhage. No evidence of any brain mass. Patient otherwise remained hemodynamically stable here in the ED. Blood sugar was within normal limits on arrival, lab work shows a mild leukocytosis at 3.39, hemoglobin is normal, platelet count is normal, CMP does not show any evidence of any critical findings, creatinine appears to be at baseline at 1.34, glucose is 141, troponin is negative, urinalysis shows 3+ blood without any obvious infection. Viral panel testing was obtained and is negative. Chest x-ray per my interpretation does not show any evidence of pneumonia. On my reassessment the patient remains hemodynamically stable, her daughter is at the bedside. I feel the patient would benefit from admission as she does exhibit some mild confusion on my exam, I think she might require an MRI of the brain to further assess her altered mental status that seems to be progressing over about the past 36 hours. Patient's daughter at the bedside is in agreement. I discussed the patient's case with the on-call hospitalist, Dr. Mccarthy, and the patient was placed for admission in stable condition. Consultants/Discussions held with other healthcare providers: -Hospitalist, Dr. Mccarthy Disposition discussion held by myself with: -Patient's daughter at the bedside Diagnosis: 1. Altered mental status/confusion, acute 2. Hematuria, acute, nonspecific 3. Leukocytosis, acute, nonspecific Disposition: Admission Star Montana DO Emergency Medicine Past Med/Surg History Problem List (Updated 03/21/24 @ 00:41 by Star Montana DO) Altered mental status, unspecified (Acute) Hypokalemia DVT (deep venous thrombosis) CKD (chronic kidney disease), stage III GERD (gastroesophageal reflux disease) HLD (hyperlipidemia) HTN (hypertension) Parathyroid adenoma (Acute) Bilateral pulmonary embolism (Acute) Thyroid disease (Acute) Vitamin D deficiency (Chronic) Hypercalcemia (Chronic) Hyperparathyroidism (Chronic) Medical History Hx-TIA (transient ischemic attack) many years ago, occurred when walking to the bus for work, taken to hospital>no residual effects "reason for aspirin" per pt. snf (current) use of anticoagulants Glaucoma Chronic kidney disease, stage III (moderate) Hx pulmonary embolism 2020, bilat., currently on eliquis Hx of deep venous thrombosis pt unsure of any details of this, "just knows she had this" Hypertension Hyperlipidemia GERD (gastroesophageal reflux disease) Surgical History Hx of right cataract extraction Hx of section x2, w/tubal ligation on last one Hx of appendectomy History of esophagogastroduodenoscopy (EGD) Hx of colonoscopy [place] teeth extracted Hx of tonsillectomy Family History Other Diabetes Social History Smoking Status: Never smoker Second Hand Exposure: No; Do You Dip or Chew Tobacco: No; Hx Alcohol Use: No Hx Substance Use: No Preferred Language: Comoran Communication Ability: Effective 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 building Feels Safe at Home: Yes Assistive Devices: Contacts and Glasses Allergies Allergies Allergy/AdvReac Type Severity Reaction Status Date / Time atorvastatin AdvReac stomach Verified 02/08/24 07:16 upset. brand name ok Home Meds Home Medications Medication Instructions Recorded Confirmed acetazolamide 500 mg 500 mg PO BID 05/25/19 01/25/24 capsule,extended release aspirin 81 mg tablet,delayed 81 mg PO QPM 05/25/19 01/25/24 release (Adult Aspirin Regimen) brimonidine 0.2 %-timolol 0.5 % 1 drops ophthalmic (eye) BID 05/25/19 01/25/24 eye drops (Combigan) latanoprost 0.005 % eye drops 1 drops ophthalmic (eye) TID 05/25/19 01/25/24 lisinopril 5 mg tablet 5 mg PO QPM 05/25/19 01/25/24 pantoprazole 40 mg tablet,delayed 40 mg PO QPM 05/25/19 01/25/24 release (Protonix) travoprost 0.004 % eye drops 1 drops ophthalmic (eye) HS 05/25/19 01/25/24 (Travatan Z) puggdzen-bat-crdeu acid 0.4 1 tab PO DAILY 05/31/19 01/25/24 mg-lycopene 300 mcg-lutein 250 mcg tablet (Centrum Silver) omega-3 fatty acids 1,000 mg 1,000 mg PO DAILY 05/31/19 01/25/24 capsule vitamin E (dl, acetate) 180 mg 400 units PO QPM 05/31/19 01/25/24 (400 unit) capsule apixaban 5 mg tablet (Eliquis) 5 mg PO BID 01/04/24 01/25/24 potassium chloride 10 mEq 20 meq PO QPM 01/04/24 01/25/24 tablet,extended release (Klor-Con) rosuvastatin 10 mg tablet 10 mg PO HS 01/04/24 01/25/24 Results & Data (ED) Vital Signs Vital Signs - 24 hr 03/20/24 22:00 03/20/24 22:12 03/20/24 22:30 Temperature 36.8 C Temperature Source Temporal Artery Scan Pulse Rate 98 H 104 H Pulse Rate [Apical] 122 H Pulse Rate from SpO2 Sensor Respiratory Rate 16 14 Respiratory Effort / Characteristics Non-Labored Spontaneous Respiratory Depth Normal Respiratory Pattern Regular Blood Pressure Blood Pressure [Right Arm] 166/86 H Blood Pressure Mean Blood Pressure Mean [Right Arm] 112 Pulse Oximetry 98 98 Oxygen Delivery Method Room Air Room Air Sepsis Recent Fever Within 48 Hours No Sepsis New/Unexplained Change in Mental Status N/A Sepsis Action Taken by Nursing No Action Required 03/20/24 22:40 03/20/24 23:15 03/20/24 23:30 Temperature Temperature Source Pulse Rate 99 H 96 H Pulse Rate [Apical] Pulse Rate from SpO2 Sensor 97 H Respiratory Rate 23 24 Respiratory Effort / Characteristics Respiratory Depth Respiratory Pattern Blood Pressure 139/76 121/82 Blood Pressure [Right Arm] Blood Pressure Mean 97 92 Blood Pressure Mean [Right Arm] Pulse Oximetry 96 99 96 Oxygen Delivery Method Room Air Room Air Room Air Sepsis Recent Fever Within 48 Hours Sepsis New/Unexplained Change in Mental Status Sepsis Action Taken by Nursing 03/21/24 00:00 03/21/24 00:00 Temperature Temperature Source Pulse Rate 97 H Pulse Rate [Apical] Pulse Rate from SpO2 Sensor 97 H Respiratory Rate 25 H Respiratory Effort / Characteristics Respiratory Depth Respiratory Pattern Blood Pressure 121/76 121/76 Blood Pressure [Right Arm] Blood Pressure Mean 88 91 Blood Pressure Mean [Right Arm] Pulse Oximetry 96 Oxygen Delivery Method Room Air Sepsis Recent Fever Within 48 Hours Sepsis New/Unexplained Change in Mental Status Sepsis Action Taken by Nursing Laboratory Data 03/20/24 22:13 03/20/24 22:13 Lab Results 03/20/24 03/20/24 03/20/24 Range/Units 22:12 22:13 22:49 WBC 13.39 H (4.8-10.8) K/ul RBC 4.36 (4.20-5.40) M/uL Hgb 12.2 (12.0-16.0) g/dl Hct 38.0 (37.0-47.0) % MCV 87.2 (80.0-100.0) fL MCH 28.0 (25.0-34.0) pg MCHC 32.1 (32.0-36.0) g/dL RDW Std Deviation 44.8 (36.4-46.3) fL RDW Coeff of Oscar 14.0 (11.5-14.5) % Plt Count 262 (130-400) K/uL MPV 11.2 (9.4-12.4) fL Immature Gran % (Auto) 0.6 % Neut % (Auto) 81.2 % Lymph % (Auto) 9.4 % Marshall % (Auto) 7.8 % Eos % (Auto) 0.6 % Baso % (Auto) 0.4 % Neut # (Auto) 10.86 H (1.40-6.50) K/uL Lymph # (Auto) 1.26 (1.20-3.40) K/uL Marshall # (Auto) 1.05 H (0.11-0.59) K/uL Eos # (Auto) 0.08 (0.00-0.50) K/uL Baso # (Auto) 0.06 (0.00-0.20) K/uL Immature Gran # (Auto) 0.08 (0.01-0.20) K/uL PT Cancelled INR Cancelled APTT Cancelled PTT Ratio Cancelled Sodium 134 L (136-145) mmol/L Potassium 3.8 (3.5-5.1) mmol/L Chloride 106 (98-107) mmol/L Carbon Dioxide 18 L (21-32) mmol/L Anion Gap 10 (3-11) BUN 19 (6-23) mg/dl Creatinine 1.34 H (0.6-1.2) mg/dl Est Cr Clr Drug Dosing 39.7 ml/min Est GFR ( Amer) 44.5 ml/min Est GFR (Non-Af Amer) 38.4 ml/min BUN/Creatinine Ratio 14.2 (10-20) Glucose 141 H (70-99(Fasting)) mg/dl POC Glucose 129 H (70-99) mg/dl Calcium 11.0 H (8.6-10.3) mg/dl Magnesium 1.8 (1.7-2.4) mg/dl Total Bilirubin 0.5 (0.2-1.0) mg/dl AST 29 (13-39) U/L ALT 15 (7-52) U/L Alkaline Phosphatase 71 (34-104) U/L Troponin I High Sens 10.2 (0-14) pg/ml Total Protein 8.2 (6.0-8.3) gm/dl Albumin 3.9 (3.4-5.0) gm/dl Globulin 4.3 H (2.5-4.0) gm/dl Albumin/Globulin Ratio 0.9 (0.9-2) Urine Color Urine Appearance (Clear) Urine pH (4.5-7.5) Ur Specific [place] (1.000-1.030) Urine Protein (Negative) Urine Glucose (UA) (Negative) Urine Ketones (Negative) Urine Blood (Negative) Urine Nitrite (Negative) Urine Bilirubin (Negative) Urine Urobilinogen (Negative) Ur Leukocyte Esterase (Negative) Urine WBC (Auto) (0-5) /hpf Urine RBC (Auto) (0-2) /hpf U Hyaline Cast (Auto) (0-2) /lpf U Epithel Cells (Auto) (0-2) /hpf Urine Bacteria (Auto) (None Seen) Urine Yeast (None Prsent) Adenovirus (PCR) Not Detected (NotDetected) B. pertussis DNA (PCR) Not Detected (NotDetected) B.parapertussis DNA PCR Not Detected (NotDetected) C. pneumoniae DNA (PCR) Not Detected (NotDetected) Coronavirus OC43 (PCR) Not Detected (NotDetected) Coronavirus HKU1 (PCR) Not Detected (NotDetected) Coronavirus 229E (PCR) Not Detected (NotDetected) SARS-CoV-2 (PCR) Not Detected (NotDetected) Coronavirus NL63 (PCR) Not Detected (NotDetected) Human Metapneumovir PCR Not Detected (NotDetected) Influenza Type A (PCR) Not Detected (NotDetected) Influenza Type B (PCR) Not Detected (NotDetected) M. pneumoniae (PCR) Not Detected (NotDetected) Parainfluenza 1 (PCR) Not Detected (NotDetected) Parainfluenza 2 (PCR) Not Detected (NotDetected) Parainfluenza 3 (PCR) Not Detected (NotDetected) Parainfluenza 4 (PCR) Not Detected (NotDetected) RSV (PCR) Not Detected (NotDetected) Entero/Rhino (PCR) Not Detected (NotDetected) Blood Type A Positive Antibody Screen NEGATIVE 03/20/24 03/20/24 Range/Units 23:00 23:11 WBC (4.8-10.8) K/ul RBC (4.20-5.40) M/uL Hgb (12.0-16.0) g/dl Hct (37.0-47.0) % MCV (80.0-100.0) fL MCH (25.0-34.0) pg MCHC (32.0-36.0) g/dL RDW Std Deviation (36.4-46.3) fL RDW Coeff of Oscar (11.5-14.5) % Plt Count (130-400) K/uL MPV (9.4-12.4) fL Immature Gran % (Auto) % Neut % (Auto) % Lymph % (Auto) % Marshall % (Auto) % Eos % (Auto) % Baso % (Auto) % Neut # (Auto) (1.40-6.50) K/uL Lymph # (Auto) (1.20-3.40) K/uL Marshall # (Auto) (0.11-0.59) K/uL Eos # (Auto) (0.00-0.50) K/uL Baso # (Auto) (0.00-0.20) K/uL Immature Gran # (Auto) (0.01-0.20) K/uL PT 14.6 H INR 1.4 H APTT 33 H PTT Ratio 1.2 Sodium (136-145) mmol/L Potassium (3.5-5.1) mmol/L Chloride (98-107) mmol/L Carbon Dioxide (21-32) mmol/L Anion Gap (3-11) BUN (6-23) mg/dl Creatinine (0.6-1.2) mg/dl Est Cr Clr Drug Dosing ml/min Est GFR ( Amer) ml/min Est GFR (Non-Af Amer) ml/min BUN/Creatinine Ratio (10-20) Glucose (70-99(Fasting)) mg/dl POC Glucose (70-99) mg/dl Calcium (8.6-10.3) mg/dl Magnesium (1.7-2.4) mg/dl Total Bilirubin (0.2-1.0) mg/dl AST (13-39) U/L ALT (7-52) U/L Alkaline Phosphatase (34-104) U/L Troponin I High Sens (0-14) pg/ml Total Protein (6.0-8.3) gm/dl Albumin (3.4-5.0) gm/dl Globulin (2.5-4.0) gm/dl Albumin/Globulin Ratio (0.9-2) Urine Color Yellow Urine Appearance Clear (Clear) Urine pH 6.0 (4.5-7.5) Ur Specific [place] > 1.045 H (1.000-1.030) Urine Protein 1+ H (Negative) Urine Glucose (UA) Negative (Negative) Urine Ketones Negative (Negative) Urine Blood 3+ H (Negative) Urine Nitrite Negative (Negative) Urine Bilirubin Negative (Negative) Urine Urobilinogen Negative (Negative) Ur Leukocyte Esterase Negative (Negative) Urine WBC (Auto) 0-5 (0-5) /hpf Urine RBC (Auto) >20 H (0-2) /hpf U Hyaline Cast (Auto) 0-2 (0-2) /lpf U Epithel Cells (Auto) 0-2 (0-2) /hpf Urine Bacteria (Auto) None Seen (None Seen) Urine Yeast Present A (None Prsent) Adenovirus (PCR) (NotDetected) B. pertussis DNA (PCR) (NotDetected) B.parapertussis DNA PCR (NotDetected) C. pneumoniae DNA (PCR) (NotDetected) Coronavirus OC43 (PCR) (NotDetected) Coronavirus HKU1 (PCR) (NotDetected) Coronavirus 229E (PCR) (NotDetected) SARS-CoV-2 (PCR) (NotDetected) Coronavirus NL63 (PCR) (NotDetected) Human Metapneumovir PCR (NotDetected) Influenza Type A (PCR) (NotDetected) Influenza Type B (PCR) (NotDetected) M. pneumoniae (PCR) (NotDetected) Parainfluenza 1 (PCR) (NotDetected) Parainfluenza 2 (PCR) (NotDetected) Parainfluenza 3 (PCR) (NotDetected) Parainfluenza 4 (PCR) (NotDetected) RSV (PCR) (NotDetected) Entero/Rhino (PCR) (NotDetected) Blood Type Antibody Screen Administered Medications Sodium Chloride (Nss) 1,000 mls @ 50 mls/hr IV .Q20H NAIDA Stop: 04/19/24 22:14 Last Admin: 03/20/24 23:11 Dose: 50 mls/hr Documented By: [facility] Imaging Data Radiologist's Impression: Head CT 03/20/24 22:07 CR Exam(s): CT HEAD Without Contrast EXAM: CT Head Without Intravenous Contrast CLINICAL HISTORY: Reason for exam: neuro deficit, acute stroke suspected. TECHNIQUE: Axial computed tomography images of the head/brain without intravenous contrast. Automated exposure control was utilized for the study. A dose lowering technique was utilized adhering to the principles of ALARA. COMPARISON: No relevant prior studies available. FINDINGS: Brain: Remote ischemic injury of the right cerebellum.. No hemorrhage. No significant white matter disease. No edema. Ventricles: Unremarkable. No ventriculomegaly. Bones/joints: Unremarkable. No acute fracture. Soft tissues: Unremarkable. Sinuses: Unremarkable as visualized. No acute sinusitis. Mastoid air cells: Unremarkable as visualized. No mastoid effusion. IMPRESSION: No evidence of acute intracranial pathology. Communications: Call Doctor Stroke Electronically signed by: Jeannine Rivero MD 03/20/24 22:50 PM Head CTA 03/20/24 22:07 CR Exam(s): CTA HEAD With Contrast IV Amt: 117 ml opti 320 EXAM: CT Angiography Head With Intravenous Contrast CLINICAL HISTORY: Reason for exam: neuro deficit, acute stroke suspected. TECHNIQUE: Axial computed tomographic angiography images of the head with intravenous contrast. Automated exposure control was utilized for the study. A dose lowering technique was utilized adhering to the principles of ALARA. MIP reconstructed images were created and reviewed. CONTRAST: Patient received 117 ml opti 320 of IV contrast COMPARISON: No relevant prior studies available. FINDINGS: The dural venous sinuses are patent. Right internal carotid artery: No acute findings. Intracranial segment is patent with no significant stenosis. No aneurysm. Right anterior cerebral artery: Unremarkable. No occlusion or significant stenosis. No aneurysm. Right middle cerebral artery: Unremarkable. No occlusion or significant stenosis. No aneurysm. Right posterior cerebral artery: Unremarkable. No occlusion or significant stenosis. No aneurysm. Right vertebral artery: Unremarkable as visualized. Left internal carotid artery: No acute findings. Intracranial segment is patent with no significant stenosis. No aneurysm. Left anterior cerebral artery: Unremarkable. No occlusion or significant stenosis. No aneurysm. Left middle cerebral artery: Unremarkable. No occlusion or significant stenosis. No aneurysm. Left posterior cerebral artery: Unremarkable. No occlusion or significant stenosis. No aneurysm. Left vertebral artery: Unremarkable as visualized. Basilar artery: Unremarkable. No occlusion or significant stenosis. No aneurysm. IMPRESSION: Negative CT angiogram of the head. Communications: Verify Receipt Call Doctor Stroke Electronically signed by: Jeannine Rivero MD 03/20/24 22:53 PM Neck CTA 03/20/24 22:07 CR Exam(s): CTA NECK With Contrast IV Amt: 117 ml opti 320 EXAM: CT Angiography Neck With Intravenous Contrast CLINICAL HISTORY: Reason for exam: neuro deficit, acute stroke suspected. TECHNIQUE: Routine carotid CT angiography protocol was performed with intravenous contrast. NASCET criteria using the distal ICAs for comparison were used for evaluation of stenoses. Automated exposure control was utilized for the study. A dose lowering technique was utilized adhering to the principles of ALARA. MIP reconstructed images were created and reviewed. CONTRAST: Patient received 117 ml opti 320 of IV contrast COMPARISON: None. FINDINGS: VASCULATURE: Right common carotid artery: Unremarkable. No occlusion or significant stenosis. No dissection. Right internal carotid artery: Unremarkable. Extracranial segment is patent with no occlusion or significant stenosis. No dissection. Right external carotid artery: Unremarkable. No occlusion. Right vertebral artery: Unremarkable. No occlusion or significant stenosis. No dissection. Left common carotid artery: Unremarkable. No occlusion or significant stenosis. No dissection. Left internal carotid artery: Unremarkable. Extracranial segment is patent with no occlusion or significant stenosis. No dissection. Left external carotid artery: Unremarkable. No occlusion. Left vertebral artery: Unremarkable. No occlusion or significant stenosis. No dissection. NECK: Bones/joints: Moderate spinal canal stenosis at C5-6. No acute fracture. Soft tissues: Unremarkable. Lung apices: Bronchitis, which may be of infectious or inflammatory etiologies. CAROTID STENOSIS REFERENCE USING NASCET CRITERIA: % ICA stenosis = (1 - narrowest ICA diameter/diameter of distal cervical ICA) x 100. Mild - <50% stenosis. Moderate - 50-69% stenosis. Severe - 70-94% stenosis. Near occlusion - 95-99% stenosis. Occluded - 100% stenosis. IMPRESSION: Negative CTA neck. Communications: Call Doctor Stroke Electronically signed by: Jeannine Rivero MD 03/20/24 22:55 PM Discharge Plan Visit Data Chief Complaint: Stroke Alert Stated Complaint: CONFUSION, NOT EATING ED Provider: Star Montana Discharge Problem: Altered mental status, unspecified Forms Stand Alone Forms: My [facility] Prescriptions Prescriptions: No Action acetazolamide 500 mg capsule, extended release 500 mg PO BID aspirin [Adult Aspirin Regimen] 81 mg tablet,delayed release (DR/EC) 81 mg PO QPM Combigan 0.2-0.5 % drops 1 drops OP BID latanoprost 0.005 % drops 1 drops OP TID lisinopril 5 mg tablet 5 mg PO QPM pantoprazole [Protonix] 40 mg tablet,delayed release (DR/EC) 40 mg PO QPM Travatan Z 0.004 % drops 1 drops OP HS vitamin E (dl, acetate) 400 unit capsule 400 units PO QPM omega-3 fatty acids 1,000 mg capsule 1,000 mg PO DAILY Centrum Silver 0.4-300-250 mg-mcg-mcg tablet 1 tab PO DAILY rosuvastatin 10 mg Tablet 10 mg PO HS potassium chloride [Klor-Con 10] 10 mEq tablet extended release 20 meq PO QPM Eliquis 5 mg tablet 5 mg PO BID Rx Instructions: take 10 mg twice a day for 7 days, then continue with 5 mg twice Referrals Referrals: Yosvany Pate DO [Outside Practitioners] - Discharge Problem: Altered mental status, unspecified Qualifiers: Altered mental status type: unspecified Qualified Code(s): R41.82 - Altered mental status, unspecified
[2024-03-20 22:36] LABS: Basophils # (auto) 0.06 K/uL (0.00-0.20); Basophils % (auto) 0.4 %; Eosinophils # (auto) 0.08 K/uL (0.00-0.50); Eosinophils % (auto) 0.6 %; Hemoglobin 12.2 g/dl (12.0-16.0); Immature Granulocytes # (auto) 0.08 K/uL (0.01-0.20); Immature Granulocytes % (auto) 0.6 %; Lymphocytes # (auto) 1.26 K/uL (1.20-3.40); Lymphocytes % (auto) 9.4 %; Mean Corpuscular Hgb Conc 32.1 g/dL (32.0-36.0); Mean Corpuscular Volume 87.2 fL (80.0-100.0); Mean Platelet Volume 11.2 fL (9.4-12.4); Monocytes # (auto) 1.05 K/uL (0.11-0.59); Monocytes % (auto) 7.8 %; Neutrophils # (auto) 10.86 K/uL (1.40-6.50); Neutrophils % (auto) 81.2 %; Platelet Count 262 K/uL (130-400); RDW Standard Deviation 44.8 fL (36.4-46.3); Red Blood Count 4.36 M/uL (4.20-5.40); White Blood Count 13.39 K/ul (4.8-10.8)
[2024-03-20 22:47] LABS: Albumin Globulin Ratio 0.9 (0.9-2); Albumin Level 3.9 gm/dl (3.4-5.0); BUN Creatinine Ratio 14.2 (10-20); Bilirubin,Total 0.5 mg/dl (0.2-1.0); Creatinine Clr Calc Pharmacy 39.7 ml/min; Est GFR (African American) 44.5 ml/min; Est GFR (Non-African American) 38.4 ml/min; Globulin 4.3 gm/dl (2.5-4.0); Magnesium 1.8 mg/dl (1.7-2.4); Potassium 3.8 mmol/L (3.5-5.1); Total Protein 8.2 gm/dl (6.0-8.3)
--- NOTE | 2024-03-20 22:51 | CT Scan Report ---
Exam(s): CT HEAD Without Contrast EXAM: CT Head Without Intravenous Contrast CLINICAL HISTORY: Reason for exam: neuro deficit, acute stroke suspected. TECHNIQUE: Axial computed tomography images of the head/brain without intravenous contrast. Automated exposure control was utilized for the study. A dose lowering technique was utilized adhering to the principles of ALARA. COMPARISON: No relevant prior studies available. FINDINGS: Brain: Remote ischemic injury of the right cerebellum.. No hemorrhage. No significant white matter disease. No edema. Ventricles: Unremarkable. No ventriculomegaly. Bones/joints: Unremarkable. No acute fracture. Soft tissues: Unremarkable. Sinuses: Unremarkable as visualized. No acute sinusitis. Mastoid air cells: Unremarkable as visualized. No mastoid effusion. IMPRESSION: No evidence of acute intracranial pathology. Communications: Call Doctor Stroke Electronically signed by: Jeannine Rivero MD 03/20/24 22:50 PM
[2024-03-20 22:54] LABS: Troponin I High Sensitivity 10.2 pg/ml (0-14)
--- NOTE | 2024-03-20 22:54 | CT Scan Report ---
Exam(s): CTA HEAD With Contrast IV Amt: 117 ml opti 320 EXAM: CT Angiography Head With Intravenous Contrast CLINICAL HISTORY: Reason for exam: neuro deficit, acute stroke suspected. TECHNIQUE: Axial computed tomographic angiography images of the head with intravenous contrast. Automated exposure control was utilized for the study. A dose lowering technique was utilized adhering to the principles of ALARA. MIP reconstructed images were created and reviewed. CONTRAST: Patient received 117 ml opti 320 of IV contrast COMPARISON: No relevant prior studies available. FINDINGS: The dural venous sinuses are patent. Right internal carotid artery: No acute findings. Intracranial segment is patent with no significant stenosis. No aneurysm. Right anterior cerebral artery: Unremarkable. No occlusion or significant stenosis. No aneurysm. Right middle cerebral artery: Unremarkable. No occlusion or significant stenosis. No aneurysm. Right posterior cerebral artery: Unremarkable. No occlusion or significant stenosis. No aneurysm. Right vertebral artery: Unremarkable as visualized. Left internal carotid artery: No acute findings. Intracranial segment is patent with no significant stenosis. No aneurysm. Left anterior cerebral artery: Unremarkable. No occlusion or significant stenosis. No aneurysm. Left middle cerebral artery: Unremarkable. No occlusion or significant stenosis. No aneurysm. Left posterior cerebral artery: Unremarkable. No occlusion or significant stenosis. No aneurysm. Left vertebral artery: Unremarkable as visualized. Basilar artery: Unremarkable. No occlusion or significant stenosis. No aneurysm. IMPRESSION: Negative CT angiogram of the head. Communications: Verify Receipt Call Doctor Stroke Electronically signed by: Jeannine Rivero MD 03/20/24 22:53 PM
--- NOTE | 2024-03-20 22:56 | CT Scan Report ---
Exam(s): CTA NECK With Contrast IV Amt: 117 ml opti 320 EXAM: CT Angiography Neck With Intravenous Contrast CLINICAL HISTORY: Reason for exam: neuro deficit, acute stroke suspected. TECHNIQUE: Routine carotid CT angiography protocol was performed with intravenous contrast. NASCET criteria using the distal ICAs for comparison were used for evaluation of stenoses. Automated exposure control was utilized for the study. A dose lowering technique was utilized adhering to the principles of ALARA. MIP reconstructed images were created and reviewed. CONTRAST: Patient received 117 ml opti 320 of IV contrast COMPARISON: None. FINDINGS: VASCULATURE: Right common carotid artery: Unremarkable. No occlusion or significant stenosis. No dissection. Right internal carotid artery: Unremarkable. Extracranial segment is patent with no occlusion or significant stenosis. No dissection. Right external carotid artery: Unremarkable. No occlusion. Right vertebral artery: Unremarkable. No occlusion or significant stenosis. No dissection. Left common carotid artery: Unremarkable. No occlusion or significant stenosis. No dissection. Left internal carotid artery: Unremarkable. Extracranial segment is patent with no occlusion or significant stenosis. No dissection. Left external carotid artery: Unremarkable. No occlusion. Left vertebral artery: Unremarkable. No occlusion or significant stenosis. No dissection. NECK: Bones/joints: Moderate spinal canal stenosis at C5-6. No acute fracture. Soft tissues: Unremarkable. Lung apices: Bronchitis, which may be of infectious or inflammatory etiologies. CAROTID STENOSIS REFERENCE USING NASCET CRITERIA: % ICA stenosis = (1 - narrowest ICA diameter/diameter of distal cervical ICA) x 100. Mild - <50% stenosis. Moderate - 50-69% stenosis. Severe - 70-94% stenosis. Near occlusion - 95-99% stenosis. Occluded - 100% stenosis. IMPRESSION: Negative CTA neck. Communications: Call Doctor Stroke Electronically signed by: Jeannine Rivero MD 03/20/24 22:55 PM
[2024-03-20] MEDS: SODIUM CHLORIDE 0.9% 1,000 ML IV SCH (23:11)
[2024-03-20 23:36] LABS: Appearance Urine Clear (Clear); Bacteria Urine Automated None Seen (None Seen); Bilirubin Urine Negative (Negative); Blood Urine 3+ (Negative); Cast Urine Automated 0-2 /lpf (0-2); Color Urine Yellow; Epithelial Cell Urine Auto 0-2 /hpf (0-2); Glucose Urine UA Negative (Negative); Ketones Urine Negative (Negative); Leukocyte Esterase Urine Negative (Negative); Nitrite Urine Negative (Negative); Protein Urine 1+ (Negative); RBC Urine Automated >20 /hpf (0-2); Specific Gravity Urine > 1.045 (1.000-1.030); Urobilinogen Urine Negative (Negative); WBC Urine Automated 0-5 /hpf (0-5)
[2024-03-20 23:49] LABS: Adenovirus PCR Not Detected (NotDetected); Bordetella parapertussis PCR Not Detected (NotDetected); Bordetella pertussis PCR Not Detected (NotDetected); Chlamydia pneumoniae PCR Not Detected (NotDetected); Coronavirus 229E PCR Not Detected (NotDetected); Coronavirus CoV-2 (COVID19)PCR Not Detected (NotDetected); Coronavirus HKU1 PCR Not Detected (NotDetected); Coronavirus NL63 PCR Not Detected (NotDetected); Coronavirus OC43PCR Not Detected (NotDetected); Human Metapneumovirus PCR Not Detected (NotDetected); Influenza A PCR Not Detected (NotDetected); Influenza B PCR Not Detected (NotDetected); Mycoplasma pneumoniae PCR Not Detected (NotDetected); Parainfluenza Virus 1 PCR Not Detected (NotDetected); Parainfluenza Virus 2 PCR Not Detected (NotDetected); Parainfluenza Virus 3 PCR Not Detected (NotDetected); Parainfluenza Virus 4 PCR Not Detected (NotDetected); Respiratory Syncytial VirusPCR Not Detected (NotDetected); Rhinovirus/Enterovirus PCR Not Detected (NotDetected)
[2024-03-20 23:56] LABS: INR 1.4 (0.9-1.1); Partial Thromboplastin Ratio 1.2; Partial Thromboplastin Time 33 Seconds (21-31); Prothrombin Time 14.6 Seconds (9.0-12.0)
--- NOTE | 2024-03-21 01:28 | History & Physical Report ---
Date of Service March 21, 2024 Assessment & Plan (1) Altered mental status, unspecified: Plan: 78-year-old female with past medical history significant for mixed hyperlipidemia, history of hypercalcemia, history of hyperparathyroidism, history of multiple thyroid nodules, history of CKD stage III, history of moderate tricuspid regurgitation, diastolic dysfunction, GERD, CKD stage III, j generalized osteoarthritis, glaucoma, history of spinal stenosis, history of PE was brought in by daughter because of confusion. Daughter says last Wednesday daughter was out of town and she called her mother but she did not pickle processor the phone. Generally mother calls back immediately but she was not calling. She almost thought of calling resident physician in radiology for welfare check but her boyfriend went and checked the patient. Seems her phone was unplugged and patient seemed to so mewhat confused. And today daughter thought patient was not eating much and seems patient told her there was no food in the house ,though there is. Daughter took her to restaurant but patient could not eat anything. And when she is talking she was not making sense. And her ambulation was very sluggish. And daughter decided to bring her to the hospital. Patient was a stroke alert. But because of symptoms going on for some time she was not thought to be a TNK candidate. In the ER patient initially oriented to name and place. But currently could tell her name. Knows that she in the hospital. Knows current month and year. Could tell her date of . But she is repeating herself. Her main complaints are about her bowel and bladder symptoms. Says she is not moving her bowels normally. She says has pain while moving her bowels. She says hs pain with bladder movements. Says she has some vision problems from glaucoma. No runny nose. As per daughter patient is spitting a lot and attributes to her dentures.Denies any chest pain. No shortness of breath. Afebrile. No abdominal pain. Patient recently found to have vaginal spotting supposed to see her doctor for it. Hemodynamics are okay currently. Altered mental status unspecified CT head, CTA head and neck unremarkable Chest x-ray unremarkable UA is unremarkable Labs WBC 13. Creatinine 1.4 LFTs okay Will do stroke protocol with MRI head and echo and neurochecks Continue home statin and aspirin Telemetry Gentle fluids Will check vitamin B12 and vitamin B1 levels Consult neurology in a.m. for further recommendation History of pulmonary embolism On Eliquis CKD stage III Presented with creatinine 1.3 which is around baseline Will follow labs Diastolic dysfunction Monitor for volume overload Follow echo Glaucoma Continue eyedrops Hyperlipidemia Statin Hypertension On lisinopril GERD On Protonix Vaginal spotting Follow-up with PCP/gynecology DVT prophylaxis On Eliquis Disposition Telemetry Full code History of Present Illness Chief Complaint: Confusion Primary Care Provider: Chasity Mathew DO 78-year-old female with past medical history significant for mixed hyperlipidemia, history of hypercalcemia, history of hyperparathyroidism, history of multiple thyroid nodules, history of CKD stage III, history of moderate tricuspid regurgitation, diastolic dysfunction, GERD, CKD stage III, j generalized osteoarthritis, glaucoma, history of spinal stenosis, history of PE was brought in by daughter because of confusion. Daughter says last Wednesday daughter was out of town and she called her mother but she did not pickle processor the p johan. Generally mother calls back immediately but she was not calling. She almost thought of calling resident physician in radiology for welfare check but her boyfriend went and checked the patient. Seems her phone was unplugged and patient seemed to somewhat confused. And today daughter thought patient was not eating much and seems patient told her there was no food in the house ,though there is. Daughter took her to restaurant but patient could not eat anything. And when she is talking she was not making sense. And her ambulation was very sluggish. And daughter decided to bring her to the hospital. Patient was a stroke alert. But because of symptoms going on for some time she was not thought to be a TNK candidate. In the ER patient initially oriented to name and place. But currently could tell her name. Knows that she in the hospital. Knows current month and year. Could tell her date of . But she is repeating herself. Her main complaints are about her bowel and bladder symptoms. Says she is not moving her bowels normally. She says has pain while moving her bowels. She says hs pain with bladder movements. Says she has some vision problems from glaucoma. No runny nose. As per daughter patient is spitting a lot and attributes to her dentures.Denies any chest pain. No shortness of breath. Afebrile. No abdominal pain. Patient recently found to have vaginal spotting supposed to see her doctor for it. Hemodynamics are okay currently. Past medical history. As mentioned above Past surgical history. . Colonoscopy. Parathyroidectomy. Puncture drainage of breast cyst. Tonsillectomy. Social history. No smoking. No alcohol use. No drug use. Family history. Mother had diabetes. Heart disorder. Father had cardiomyopathy. Allergies Allergy/AdvReac Type Severity Reaction Status Date / Time atorvastatin AdvReac stomach Verified 02/08/24 07:16 upset. brand name ok Home Medications Medication Instructions Recorded Confirmed Type apixaban 5 mg tablet (Eliquis) 5 mg PO BID 03/21/24 03/21/24 History brimonidine 0.2 %-timolol 0.5 % 1 drp OPB BID 03/21/24 03/21/24 History eye drops cholecalciferol (vitamin D3) 25 25 mcg PO DAILY 03/21/24 03/21/24 History mcg (1,000 unit) tablet dorzolamide 2 % eye drops 1 drp OPB TID 03/21/24 03/21/24 History lisinopril 5 mg tablet 5 mg PO DAILY 03/21/24 03/21/24 History pantoprazole 40 mg tablet,delayed 40 mg PO DAILY 03/21/24 03/21/24 History release potassium chloride 10 mEq 20 meq PO DAILY 03/21/24 03/21/24 History tablet,extended release rosuvastatin 10 mg tablet 10 mg PO DAILY 03/21/24 03/21/24 History Past Med/Surg History Problem List (Updated 03/21/24 @ 00:41 by Star Montana DO) Altered mental status, unspecified (Acute) Hypokalemia DVT (deep venous thrombosis) CKD (chronic kidney disease), stage III GERD (gastroesophageal reflux disease) HLD (hyperlipidemia) HTN (hypertension) Parathyroid adenoma (Acute) Bilateral pulmonary embolism (Acute) Thyroid disease (Acute) Vitamin D deficiency (Chronic) Hypercalcemia (Chronic) Hyperparathyroidism (Chronic) Medical History Hx-TIA (transient ischemic attack) many years ago, occurred when walking to the bus for work, taken to hospital>no residual effects "reason for aspirin" 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 Glaucoma Chronic kidney disease, stage III (moderate) Hx pulmonary embolism 2020, bilat., currently on eliquis Hx of deep venous thrombosis pt unsure of any details of this, "just knows she had this" Hypertension Hyperlipidemia GERD (gastroesophageal reflux disease) Surgical History Hx of right cataract extraction Hx of section x2, w/tubal ligation on last one Hx of appendectomy History of esophagogastroduodenoscopy (EGD) Hx of colonoscopy [place] teeth extracted Hx of tonsillectomy Family History Other Diabetes Social History Smoking Status: Unknown if ever smoked Second Hand Exposure: No; Do You Dip or Chew Tobacco: No; Preferred Language: [place] Communication Ability: Effective Dog Breeder Required: No Beliefs That Will Affect Care: None marital status: Current Living Situation: Alone Current Living Situation Comment: lives in apt. building Feels Safe at Home: Yes Assistive Devices: Contacts and Glasses Review of Systems Review of Systems: All systems reviewed & are unremarkable except as noted in HPI & below Physical Exam Physical Exam: General- Not in acute distress Head- atraumatic Eyes- PERRL, ENT- oropharynx clear Neck- supple, no JVD. Lungs- clear to auscultation no wheezing or crackles. Heart- regular rate and rhythm; no murmur, no gallop. Abdomen- normal bowel sounds, soft, nontender, no distension. Extremities- no pretibial edema, no erythema seen Neuro- alert, oriented x 3; PERRL, no facial palsy; no dysarthria; motor 3-5/5 bilaterally; coordination of movements ok. No pronator drift. sensations intact. Results & Data Results & Data Vital Signs (Past 12 Hours) Vital Signs Temp Pulse Pulse Resp BP BP Pulse Ox 03/21/24 00:00 97 H 25 H 121/76 96 03/21/24 00:00 121/76 03/20/24 23:30 96 H 24 121/82 96 03/20/24 23:15 99 H 23 139/76 99 03/20/24 22:40 96 03/20/24 22:30 104 H 03/20/24 22:12 122 H 14 166/86 H 98 03/20/24 22:00 36.8 C 98 H 16 98 O2 Del Method 03/21/24 00:00 Room Air 03/21/24 00:00 03/20/24 23:30 Room Air 03/20/24 23:15 Room Air 03/20/24 22:40 Room Air 03/20/24 22:30 03/20/24 22:12 Room Air 03/20/24 22:00 Room Air Diagnostic Findings Laboratory Results WBC 13.39 K/ul (4.8-10.8) H 03/20/24 22:13 RBC 4.36 M/uL (4.20-5.40) 03/20/24 22:13 Hgb 12.2 g/dl (12.0-16.0) 03/20/24 22:13 Hct 38.0 % (37.0-47.0) 03/20/24 22:13 MCV 87.2 fL (80.0-100.0) 03/20/24 22:13 MCH 28.0 pg (25.0-34.0) 03/20/24 22:13 MCHC 32.1 g/dL (32.0-36.0) 03/20/24 22:13 RDW Std Deviation 44.8 fL (36.4-46.3) 03/20/24 22:13 RDW Coeff of Oscar 14.0 % (11.5-14.5) 03/20/24 22:13 Plt Count 262 K/uL (130-400) 03/20/24 22:13 MPV 11.2 fL (9.4-12.4) 03/20/24 22:13 Immature Gran % (Auto) 0.6 % 03/20/24 22:13 Neut % (Auto) 81.2 % 03/20/24 22:13 Lymph % (Auto) 9.4 % 03/20/24 22:13 [place] % (Auto) 7.8 % 03/20/24 22:13 Eos % (Auto) 0.6 % 03/20/24 22:13 Baso % (Auto) 0.4 % 03/20/24 22:13 Neut # (Auto) 10.86 K/uL (1.40-6.50) H 03/20/24 22:13 Lymph # (Auto) 1.26 K/uL (1.20-3.40) 03/20/24 22:13 Donley # (Auto) 1.05 K/uL (0.11-0.59) H 03/20/24 22:13 Eos # (Auto) 0.08 K/uL (0.00-0.50) 03/20/24 22:13 Baso # (Auto) 0.06 K/uL (0.00-0.20) 03/20/24 22:13 Immature Gran # (Auto) 0.08 K/uL (0.01-0.20) 03/20/24 22:13 PT 14.6 Seconds (9.0-12.0) H 03/20/24 23:11 INR 1.4 (0.9-1.1) H 03/20/24 23:11 APTT 33 Seconds (21-31) H 03/20/24 23:11 PTT Ratio 1.2 03/20/24 23:11 Sodium 134 mmol/L (136-145) L 03/20/24 22:13 Potassium 3.8 mmol/L (3.5-5.1) 03/20/24 22:13 Chloride 106 mmol/L (98-107) 03/20/24 22:13 Carbon Dioxide 18 mmol/L (21-32) L 03/20/24 22:13 Anion Gap 10 (3-11) 03/20/24 22:13 BUN 19 mg/dl (6-23) 03/20/24 22:13 Creatinine 1.34 mg/dl (0.6-1.2) H 03/20/24 22:13 Est Cr Clr Drug Dosing 39.7 ml/min 03/20/24 22:13 Est GFR ( Amer) 44.5 ml/min 03/20/24 22:13 Est GFR (Non-Af Amer) 38.4 ml/min 03/20/24 22:13 BUN/Creatinine Ratio 14.2 (10-20) 03/20/24 22:13 Glucose 141 mg/dl (70-99(Fasting)) H 03/20/24 22:13 POC Glucose 129 mg/dl (70-99) H 03/20/24 22:12 Calcium 11.0 mg/dl (8.6-10.3) H 03/20/24 22:13 Magnesium 1.8 mg/dl (1.7-2.4) 03/20/24 22:13 Total Bilirubin 0.5 mg/dl (0.2-1.0) 03/20/24 22:13 AST 29 U/L (13-39) 03/20/24 22:13 ALT 15 U/L (7-52) 03/20/24 22:13 Alkaline Phosphatase 71 U/L (34-104) 03/20/24 22:13 Troponin I High Sens 10.2 pg/ml (0-14) 03/20/24 22:13 Total Protein 8.2 gm/dl (6.0-8.3) 03/20/24 22:13 Albumin 3.9 gm/dl (3.4-5.0) 03/20/24 22:13 Globulin 4.3 gm/dl (2.5-4.0) H 03/20/24 22:13 Albumin/Globulin Ratio 0.9 (0.9-2) 03/20/24 22:13 Urine Color Yellow 03/20/24 23:00 Urine Appearance Clear (Clear) 03/20/24 23:00 Urine pH 6.0 (4.5-7.5) 03/20/24 23:00 Ur Specific [place] > 1.045 (1.000-1.030) H 03/20/24 23:00 Urine Protein 1+ (Negative) H 03/20/24 23:00 Urine Glucose (UA) Negative (Negative) 03/20/24 23:00 Urine Ketones Negative (Negative) 03/20/24 23:00 Urine Blood 3+ (Negative) H 03/20/24 23:00 Urine Nitrite Negative (Negative) 03/20/24 23:00 Urine Bilirubin Negative (Negative) 03/20/24 23:00 Urine Urobilinogen Negative (Negative) 03/20/24 23:00 Ur Leukocyte Esterase Negative (Negative) 03/20/24 23:00 Urine WBC (Auto) 0-5 /hpf (0-5) 03/20/24 23:00 Urine RBC (Auto) >20 /hpf (0-2) H 03/20/24 23:00 U Hyaline Cast (Auto) 0-2 /lpf (0-2) 03/20/24 23:00 U Epithel Cells (Auto) 0-2 /hpf (0-2) 03/20/24 23:00 Urine Bacteria (Auto) None Seen (None Seen) 03/20/24 23:00 Urine Yeast Present (None Prsent) A 03/20/24 23:00 Adenovirus (PCR) Not Detected (NotDetected) 03/20/24 22:49 B. pertussis DNA (PCR) Not Detected (NotDetected) 03/20/24 22:49 B.parapertussis DNA PCR Not Detected (NotDetected) 03/20/24 22:49 C. pneumoniae DNA (PCR) Not Detected (NotDetected) 03/20/24 22:49 Coronavirus OC43 (PCR) Not Detected (NotDetected) 03/20/24 22:49 Coronavirus HKU1 (PCR) Not Detected (NotDetected) 03/20/24 22:49 Coronavirus 229E (PCR) Not Detected (NotDetected) 03/20/24 22:49 SARS-CoV-2 (PCR) Not Detected (NotDetected) 03/20/24 22:49 Coronavirus NL63 (PCR) Not Detected (NotDetected) 03/20/24 22:49 Human Metapneumovir PCR Not Detected (NotDetected) 03/20/24 22:49 Influenza Type A (PCR) Not Detected (NotDetected) 03/20/24 22:49 Influenza Type B (PCR) Not Detected (NotDetected) 03/20/24 22:49 M. pneumoniae (PCR) Not Detected (NotDetected) 03/20/24 22:49 Parainfluenza 1 (PCR) Not Detected (NotDetected) 03/20/24 22:49 Parainfluenza 2 (PCR) Not Detected (NotDetected) 03/20/24 22:49 Parainfluenza 3 (PCR) Not Detected (NotDetected) 03/20/24 22:49 Parainfluenza 4 (PCR) Not Detected (NotDetected) 03/20/24 22:49 RSV (PCR) Not Detected (NotDetected) 03/20/24 22:49 Entero/Rhino (PCR) Not Detected (NotDetected) 03/20/24 22:49 Blood Type A Positive 03/20/24 22:13 Antibody Screen NEGATIVE 03/20/24 22:[address] 03/20/24 22:07 CR Exam(s): CT HEAD Without Contrast EXAM: CT Head Without Intravenous Contrast CLINICAL HISTORY: Reason for exam: neuro deficit, acute stroke suspected. TECHNIQUE: Axial computed tomography images of the head/brain without intravenous contrast. Automated exposure control was utilized for the study. A dose lowering technique was utilized adhering to the principles of ALARA. COMPARISON: No relevant prior studies available. FINDINGS: Brain: Remote ischemic injury of the right cerebellum.. No hemorrhage. No significant white matter disease. No edema. Ventricles: Unremarkable. No ventriculomegaly. Bones/joints: Unremarkable. No acute fracture. Soft tissues: Unremarkable. Sinuses: Unremarkable as visualized. No acute sinusitis. Mastoid air cells: Unremarkable as visualized. No mastoid effusion. IMPRESSION: No evidence of acute intracranial pathology. Communications: Call Doctor Stroke Electronically signed by: Jeannine Rivero MD 03/20/24 22:50 PM Head CTA 03/20/24 22:07 CR Exam(s): CTA HEAD With Contrast IV Amt: 117 ml opti 320 EXAM: CT Angiography Head With Intravenous Contrast CLINICAL HISTORY: Reason for exam: neuro deficit, acute stroke suspected. TECHNIQUE: Axial computed tomographic angiography images of the head with intravenous contrast. Automated exposure control was utilized for the study. A dose lowering technique was utilized adhering to the principles of ALARA. MIP reconstructed images were created and reviewed. CONTRAST: Patient received 117 ml opti 320 of IV contrast COMPARISON: No relevant prior studies available. FINDINGS: The dural venous sinuses are patent. Right internal carotid artery: No acute findings. Intracranial segment is patent with no significant stenosis. No aneurysm. Right anterior cerebral artery: Unremarkable. No occlusion or significant stenosis. No aneurysm. Right middle cerebral artery: Unremarkable. No occlusion or significant stenosis. No aneurysm. Right posterior cerebral artery: Unremarkable. No occlusion or significant stenosis. No aneurysm. Right vertebral artery: Unremarkable as visualized. Left internal carotid artery: No acute findings. Intracranial segment is patent with no significant stenosis. No aneurysm. Left anterior cerebral artery: Unremarkable. No occlusion or significant stenosis. No aneurysm. Left middle cerebral artery: Unremarkable. No occlusion or significant stenosis. No aneurysm. Left posterior cerebral artery: Unremarkable. No occlusion or significant stenosis. No aneurysm. Left vertebral artery: Unremarkable as visualized. Basilar artery: Unremarkable. No occlusion or significant stenosis. No aneurysm. IMPRESSION: Negative CT angiogram of the head. Communications: Verify Receipt Call Doctor Stroke Electronically signed by: Jeannine Rivero MD 03/20/24 22:53 PM Neck CTA 03/20/24 22:07 CR Exam(s): CTA NECK With Contrast IV Amt: 117 ml opti 320 EXAM: CT Angiography Neck With Intravenous Contrast CLINICAL HISTORY: Reason for exam: neuro deficit, acute stroke suspected. TECHNIQUE: Routine carotid CT angiography protocol was performed with intravenous contrast. NASCET criteria using the distal ICAs for comparison were used for evaluation of stenoses. Automated exposure control was utilized for the study. A dose lowering technique was utilized adhering to the principles of ALARA. MIP reconstructed images were created and reviewed. CONTRAST: Patient received 117 ml opti 320 of IV contrast COMPARISON: None. FINDINGS: VASCULATURE: Right common carotid artery: Unremarkable. No occlusion or significant stenosis. No dissection. Right internal carotid artery: Unremarkable. Extracranial segment is patent with no occlusion or significant stenosis. No dissection. Right external carotid artery: Unremarkable. No occlusion. Right vertebral artery: Unremarkable. No occlusion or significant stenosis. No dissection. Left common carotid artery: Unremarkable. No occlusion or significant stenosis. No dissection. Left internal carotid artery: Unremarkable. Extracranial segment is patent with no occlusion or significant stenosis. No dissection. Left external carotid artery: Unremarkable. No occlusion. Left vertebral artery: Unremarkable. No occlusion or significant stenosis. No dissection. NECK: Bones/joints: Moderate spinal canal stenosis at C5-6. No acute fracture. Soft tissues: Unremarkable. Lung apices: Bronchitis, which may be of infectious or inflammatory etiologies. CAROTID STENOSIS REFERENCE USING NASCET CRITERIA: % ICA stenosis = (1 - narrowest ICA diameter/diameter of distal cervical ICA) x 100. Mild - <50% stenosis. Moderate - 50-69% stenosis. Severe - 70-94% stenosis. Near occlusion - 95-99% stenosis. Occluded - 100% stenosis. IMPRESSION: Negative CTA neck. Communications: Call Doctor Stroke Electronically signed by: Jeannine Rivero MD 03/20/24 22:55 PM ECG Additional Comments: ECG. Sinus tachycardia rate of 119. Possible left atrial enlargement. Code Status & VTE Plan VTE Prophylaxis Plan VTE Prophylaxis will be ordered: Yes (1) Altered mental status, unspecified Altered mental status type: unspecified Qualified Code(s): R41.82 - Altered mental status, unspecified
[2024-03-21] MEDS ORDERED: PHARMACIST DISCHARGE MED REC CONSULT PRN (02:35)
[2024-03-21] MEDS ORDERED: NITROGLYCERIN SL 0.4 MG/TAB TAB SL PRN (02:35)
[2024-03-21] MEDS ORDERED: POLYETHYLENE (MIRALAX) 17 GM PACK PO PRN (02:35)
[2024-03-21] MEDS: SODIUM CHLORIDE 0.9% 1,000 ML IV SCH (05:06)
[2024-03-21 07:46] LABS: Basophils # (auto) 0.05 K/uL (0.00-0.20); Basophils % (auto) 0.4 %; Eosinophils # (auto) 0.16 K/uL (0.00-0.50); Eosinophils % (auto) 1.2 %; Hematocrit (blood only) 34.7 % (37.0-47.0); Hemoglobin 11.4 g/dl (12.0-16.0); Immature Granulocytes # (auto) 0.08 K/uL (0.01-0.20); Immature Granulocytes % (auto) 0.6 %; Lymphocytes # (auto) 1.98 K/uL (1.20-3.40); Lymphocytes % (auto) 14.7 %; Mean Corpuscular Hemoglobin 27.9 pg (25.0-34.0); Mean Corpuscular Hgb Conc 32.9 g/dL (32.0-36.0); Mean Corpuscular Volume 84.8 fL (80.0-100.0); Mean Platelet Volume 11.7 fL (9.4-12.4); Monocytes # (auto) 1.68 K/uL (0.11-0.59); Monocytes % (auto) 12.5 %; Neutrophils # (auto) 9.53 K/uL (1.40-6.50); Neutrophils % (auto) 70.6 %; Platelet Count 235 K/uL (130-400); RDW Coefficient of Variation 13.9 % (11.5-14.5); RDW Standard Deviation 43.4 fL (36.4-46.3); Red Blood Count 4.09 M/uL (4.20-5.40); White Blood Count 13.48 K/ul (4.8-10.8)
[2024-03-21 08:06] LABS: BUN Creatinine Ratio 14.7 (10-20); Calcium 10.6 mg/dl (8.6-10.3); Chol HDL Ratio 3.7 (0-5); Creatinine Clr Calc Pharmacy 48.8 ml/min; Est GFR (African American) 57.1 ml/min; Est GFR (Non-African American) 49.3 ml/min; Magnesium 1.8 mg/dl (1.7-2.4); Potassium 4.2 mmol/L (3.5-5.1)
--- NOTE | 2024-03-21 08:06 | XRay Report ---
XR chest 1V portable HISTORY: neuro deficit, acute stroke suspected COMPARISON: Chest CTA 10/10/2019. FINDINGS: No pneumothorax. No pleural effusions. The cardiac silhouette remains enlarged. The lungs a re clear. No acute fractures. IMPRESSION: Stable cardiomegaly. Otherwise, no acute process within the chest. ACT 112: Negative or not required by law. Electronically signed by: Hayder Lozoya M.D. 03/21/2024 8:04 AM
--- NOTE | 2024-03-21 08:32 | Electrocardiogram Report ---
Test Reason : Blood Pressure : */* mmHG Vent. Rate : 119 BPM Atrial Rate : 119 BPM P-R Int : 168 ms QRS Dur : 68 ms QT Int : 282 ms P-R-T Axes : 29 -29 12 degrees QTcB Int : 396 ms Poor data quality, interpretation may be adversely affected Sinus tachycardia Left atrial enlargement Low voltage QRS Poor R wave progression, consider anterior DC vs. lead placement vs. LVH Abnormal ECG When compared with ECG of 10-Oct-2019 11:27, Premature ventricular complexes are no longer Present Vent. rate has increased by 45 bpm PRWP now present Confirmed by Alex Baker ([id number]) on 03/21/2024 8:32:20 AM Referred By: Confirmed By: Alex Baker
[2024-03-21] MEDS: POTASSIUM CHLORIDE CRTAB 20 MEQ TABCR PO SCH (08:49)
[2024-03-21] MEDS: DORZOLAMIDE HCL 2% OPH SOLN 10 ML BTL OPB SCH (08:49)
[2024-03-21] MEDS: lisinopril 5 MG TAB PO SCH (08:50)
[2024-03-21] MEDS: ASPIRIN 81 MG ECTAB PO SCH (08:50)
[2024-03-21] MEDS: ROSUVASTATIN CALCIUM 10 MG TAB PO SCH (08:50)
[2024-03-21] MEDS: PANTOprazole 40 MG TAB PO SCH (08:50)
[2024-03-21] MEDS: CHOLECALCIFEROL 25 MCG (1000 UNITS) TAB PO SCH (08:50)
[2024-03-21] MEDS: APIXABAN 5 MG TABLET PO SCH (08:50)
[2024-03-21] MEDS: GADOBUTROL 65ML VIAL IV ONE (09:33)
--- NOTE | 2024-03-21 10:03 | Magnetic Resonance Report ---
MR brain wo/w con HISTORY: 78 years-old Female stroke like symptoms acute strokelike symptoms COMPARISON: Head CT 03/20/2024 TECHNIQUE: Multiplanar multisequence MRI of the brain was obtained with and without IV contrast. FINDINGS: Study is motion degraded. No restricted diffusion. Unremarkable midline structures. Degenerative romo ges of the cervical spine. Cerebral venous sinuses and major arterial flow voids appear patent. Prior bilateral lens repair. The mastoid air cells and paranasal sinuses are generally clear. No acute intracranial hemorrhage, midline shift, abnormal extra-axial collection, hydrocephalus or in tra-axial mass. Involutional changes with minimal scattered T2/FLAIR hyperintense foci throughout the white matter suggestive of chronic microvascular ischemic disease. No abnormal enhancement. IMPRESSION: 1. No acute intracranial abnormality, specifically no acute or subacute infarct identified. 2. No abnormal enhancement. ACT 112: Negative or not required by law. The above report was generated using voice recognition software. It may contain grammatical, syntax o r spelling errors. Electronically signed by: Luis Aranda M.D. 03/21/2024 10:01 AM
--- NOTE | 2024-03-21 10:09 | Neurology Consultation ---
Date of Consultation March 21, 2024 Assessment & Plan (1) Altered mental status, unspecified: AMS in a 78F with a pMH of HTN, HLD and DVT/PE on Eliquis. On exam she is awake and alert but only interacted with me on camera in a very limited way. CT/CTA and MRI are all unremarkable. The cause of her AMS is unclear, she does report constipation, but her work up has been unrevealing. There has been no clear evidence of fever and she doesn't complain of a headache, so suspicion for meningitis/encephalitis is low. Plan -- supportive care per primary team -- low suspicion for meningitis/encephalitis at this time but would obtain LP if she spikes a fever -- can consider routine EEG if symptoms persist Telehealth Consultation Telehealth Information Telehealth Information: I performed this visit using a real-time telehealth connection between my location and the patients location ([facility]). After connecting through interactive tele-video, patient was identified by name and date of and/or wristband check.Patient (or authorized healthcare client support representative) was informed that this was a telemedicine visit and it was being conducted confidentially over secure lines. My office door was closed and no one else was present in the room with me.Patient (or authorized healthcare client support representative) provided consent to proceed with the visit, expressed an understanding of privacy and security of the telemedicine visit, and gave permission to have a hospital client support representative in the room in order to assist with the visit and to conduct portions of the visit, as needed. I informed the patient (or authorized healthcare client support representative) that I reviewed their record and presented the opportunity for them to ask any questions regarding the visit today. The patient agreed to participate. History of Present Illness Reason for Consultation: AMS Attending Physician: iH Shore DO History of Present Illness Julia Echeverria is a 78F with a PMH of DVT/PE on eliquis, HLD, and HTN who presented with AMS. THis morning she is unable to provide any significant details to her confusion, but by report she had becoming progressively more confused over the last couple of days. She has been having trouble with constipation. Allergies Allergy/AdvReac Type Severity Reaction Status Date / Time atorvastatin AdvReac stomach Verified 02/08/24 07:16 upset. brand name ok Home Medications Medication Instructions Recorded Confirmed Type apixaban 5 mg tablet (Eliquis) 5 mg PO BID 03/21/24 03/21/24 History brimonidine 0.2 %-timolol 0.5 % 1 drp OPB BID 03/21/24 03/21/24 History eye drops cholecalciferol (vitamin D3) 25 25 mcg PO DAILY 03/21/24 03/21/24 History mcg (1,000 unit) tablet dorzolamide 2 % eye drops 1 drp OPB TID 03/21/24 03/21/24 History lisinopril 5 mg tablet 5 mg PO DAILY 03/21/24 03/21/24 History pantoprazole 40 mg tablet,delayed 40 mg PO DAILY 03/21/24 03/21/24 History release potassium chloride 10 mEq 20 meq PO DAILY 03/21/24 03/21/24 History tablet,extended release rosuvastatin 10 mg tablet 10 mg PO DAILY 03/21/24 03/21/24 History Patient History Medical History Hx-TIA (transient ischemic attack) many years ago, occurred when walking to the bus for work, taken to hospital>no residual effects "reason for aspirin" 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 Glaucoma Chronic kidney disease, stage III (moderate) Hx pulmonary embolism 2020, bilat., currently on eliquis Hx of deep venous thrombosis pt unsure of any details of this, "just knows she had this" Hypertension Hyperlipidemia GERD (gastroesophageal reflux disease) Surgical History Hx of right cataract extraction Hx of section x2, w/tubal ligation on last one Hx of appendectomy History of esophagogastroduodenoscopy (EGD) Hx of colonoscopy [place] teeth extracted Hx of tonsillectomy Family History Other Diabetes Social History Smoking Status: Unknown if ever smoked Second Hand Exposure: No; Do You Dip or Chew Tobacco: No; Preferred Language: Montenegrin Communication Ability: Effective Surface Grinder Tender Required: No Beliefs That Will Affect Care: None marital status: Current Living Situation: Alone Current Living Situation Comment: lives in apt. building Feels Safe at Home: Yes Assistive Devices: Contacts and Glasses Review of Systems unable to obtain Physical Exam NEUROLOGIC EXAMINATION: Mental Status:alert, orientated to person, limited speech output Cranial Nerves: CN 2 - no visual defect on confrontation and pupils round, equal, reactive to light CN 3, 4, 6 - extra-ocular movements intact and no nystagmus CN 5 - facial sensation intact CN 7 - no facial asymmetry CN 8 - intact hearing CN 9, 10 - palate symmetric, normal gag CN 11 - good shoulder shrug CN 12 - tongue midline MOTOR: Strength was at least antigravity throughout, Pronator drift was absent, and There were no abnormal movements SENSATION: intact and symmetric to light touch GAIT: deferred COORDINATION: no ataxia with finger to nose testing and heel to perea testing REFLEXES: cannot assess over telemedicine Results & Data Vital Signs (Past 12 Hours) Vital Signs Pulse Pulse Resp BP BP Pulse Ox Pulse Ox 03/21/24 06:30 80 20 95 03/21/24 06:06 87 21 97 03/21/24 05:30 85 19 98 03/21/24 05:09 90 20 98 03/21/24 04:36 93 H 18 114/68 98 03/21/24 04:00 90 19 114/68 97 03/21/24 03:00 92 H 24 108/76 100 03/21/24 02:35 03/21/24 02:35 97 03/21/24 02:30 92 H 23 96 03/21/24 02:28 84 03/21/24 02:00 90 27 H 105/71 99 03/21/24 01:33 96 H 27 H 119/70 98 03/21/24 01:00 102 H 23 96 03/21/24 00:00 121/76 03/21/24 00:00 97 H 25 H 121/76 96 03/21/24 00:00 121/76 03/20/24 23:30 96 H 24 121/82 96 03/20/24 23:15 99 H 23 139/76 99 03/20/24 22:40 96 03/20/24 22:30 104 H 03/20/24 22:12 122 H 14 166/86 H 98 O2 Del Method O2 Del Method 03/21/24 06:30 03/21/24 06:06 03/21/24 05:30 03/21/24 05:09 03/21/24 04:36 Room Air 03/21/24 04:00 Room Air 03/21/24 03:00 Room Air 03/21/24 02:35 Room Air 03/21/24 02:35 Room Air 03/21/24 02:30 Room Air 03/21/24 02:28 03/21/24 02:00 Room Air 03/21/24 01:33 Room Air 03/21/24 01:00 Room Air 03/21/24 00:00 03/21/24 00:00 Room Air 03/21/24 00:00 03/20/24 23:30 Room Air 03/20/24 23:15 Room Air 03/20/24 22:40 Room Air 03/20/24 22:30 03/20/24 22:12 Room Air Laboratory Results Abnormal Lab Results 03/20/24 03/20/24 03/20/24 22:12 22:13 22:49 WBC 13.39 H RBC 4.36 Hgb 12.2 Hct 38.0 MCV 87.2 MCH 28.0 MCHC 32.1 RDW Std Deviation 44.8 RDW Coeff of Oscar 14.0 Plt Count 262 MPV 11.2 Immature Gran % (Auto) 0.6 Neut % (Auto) 81.2 Lymph % (Auto) 9.4 [place] % (Auto) 7.8 Eos % (Auto) 0.6 Baso % (Auto) 0.4 Neut # (Auto) 10.86 H Lymph # (Auto) 1.26 [place] # (Auto) 1.05 H Eos # (Auto) 0.08 Baso # (Auto) 0.06 Immature Gran # (Auto) 0.08 PT Cancelled INR Cancelled APTT Cancelled PTT Ratio Cancelled Sodium 134 L Potassium 3.8 Chloride 106 Carbon Dioxide 18 L Anion Gap 10 BUN 19 Creatinine 1.34 H Est Cr Clr Drug Dosing 39.7 Est GFR ( Amer) 44.5 Est GFR (Non-Af Amer) 38.4 BUN/Creatinine Ratio 14.2 Glucose 141 H POC Glucose 129 H Calcium 11.0 H Magnesium 1.8 Total Bilirubin 0.5 AST 29 ALT 15 Alkaline Phosphatase 71 Troponin I High Sens 10.2 Total Protein 8.2 Albumin 3.9 Globulin 4.3 H Albumin/Globulin Ratio 0.9 Triglycerides Cholesterol LDL Cholesterol, Calc VLDL Cholesterol, Calc HDL Cholesterol Cholesterol/HDL Ratio Vitamin B12 Urine Color Urine Appearance Urine pH Ur Specific [place] Urine Protein Urine Glucose (UA) Urine Ketones Urine Blood Urine Nitrite Urine Bilirubin Urine Urobilinogen Ur Leukocyte Esterase Urine WBC (Auto) Urine RBC (Auto) U Hyaline Cast (Auto) U Epithel Cells (Auto) Urine Bacteria (Auto) Urine Yeast Adenovirus (PCR) Not Detected B. pertussis DNA (PCR) Not Detected B.parapertussis DNA PCR Not Detected Lyme Disease Screen C. pneumoniae DNA (PCR) Not Detected Coronavirus OC43 (PCR) Not Detected Coronavirus HKU1 (PCR) Not Detected Coronavirus 229E (PCR) Not Detected SARS-CoV-2 (PCR) Not Detected Coronavirus NL63 (PCR) Not Detected Human Metapneumovir PCR Not Detected Influenza Type A (PCR) Not Detected Influenza Type B (PCR) Not Detected M. pneumoniae (PCR) Not Detected Parainfluenza 1 (PCR) Not Detected Parainfluenza 2 (PCR) Not Detected Parainfluenza 3 (PCR) Not Detected Parainfluenza 4 (PCR) Not Detected RSV (PCR) Not Detected Entero/Rhino (PCR) Not Detected Blood Type A Positive Antibody Screen NEGATIVE 03/20/24 03/20/24 03/21/24 23:00 23:11 06:51 WBC 13.48 H RBC 4.09 L Hgb 11.4 L Hct 34.7 L MCV 84.8 MCH 27.9 MCHC 32.9 RDW Std Deviation 43.4 RDW Coeff of Oscar 13.9 Plt Count 235 MPV 11.7 Immature Gran % (Auto) 0.6 Neut % (Auto) 70.6 Lymph % (Auto) 14.7 [place] % (Auto) 12.5 Eos % (Auto) 1.2 Baso % (Auto) 0.4 Neut # (Auto) 9.53 H Lymph # (Auto) 1.98 [place] # (Auto) 1.68 H Eos # (Auto) 0.16 Baso # (Auto) 0.05 Immature Gran # (Auto) 0.08 PT 14.6 H INR 1.4 H APTT 33 H PTT Ratio 1.2 Sodium 138 Potassium 4.2 Chloride 110 H Carbon Dioxide 20 L Anion Gap 8 BUN 16 Creatinine 1.09 Est Cr Clr Drug Dosing 48.8 Est GFR ( Amer) 57.1 Est GFR (Non-Af Amer) 49.3 BUN/Creatinine Ratio 14.7 Glucose 103 H POC Glucose Calcium 10.6 H Magnesium 1.8 Total Bilirubin AST ALT Alkaline Phosphatase Troponin I High Sens Total Protein Albumin Globulin Albumin/Globulin Ratio Triglycerides 76 Cholesterol 121 LDL Cholesterol, Calc 73 VLDL Cholesterol, Calc 15 HDL Cholesterol 33 Cholesterol/HDL Ratio 3.7 Vitamin B12 > 1500 H Urine Color Yellow Urine Appearance Clear Urine pH 6.0 Ur Specific [place] > 1.045 H Urine Protein 1+ H Urine Glucose (UA) Negative Urine Ketones Negative Urine Blood 3+ H Urine Nitrite Negative Urine Bilirubin Negative Urine Urobilinogen Negative Ur Leukocyte Esterase Negative Urine WBC (Auto) 0-5 Urine RBC (Auto) >20 H U Hyaline Cast (Auto) 0-2 U Epithel Cells (Auto) 0-2 Urine Bacteria (Auto) None Seen Urine Yeast Present A Adenovirus (PCR) B. pertussis DNA (PCR) B.parapertussis DNA PCR Lyme Disease Screen C. pneumoniae DNA (PCR) Coronavirus OC43 (PCR) Coronavirus HKU1 (PCR) Coronavirus 229E (PCR) SARS-CoV-2 (PCR) Coronavirus NL63 (PCR) Human Metapneumovir PCR Influenza Type A (PCR) Influenza Type B (PCR) M. pneumoniae (PCR) Parainfluenza 1 (PCR) Parainfluenza 2 (PCR) Parainfluenza 3 (PCR) Parainfluenza 4 (PCR) RSV (PCR) Entero/Rhino (PCR) Blood Type Antibody Screen 03/21/24 07:28 WBC RBC Hgb Hct MCV MCH MCHC RDW Std Deviation RDW Coeff of Oscar Plt Count MPV Immature Gran % (Auto) Neut % (Auto) Lymph % (Auto) [place] % (Auto) Eos % (Auto) Baso % (Auto) Neut # (Auto) Lymph # (Auto) [place] # (Auto) Eos # (Auto) Baso # (Auto) Immature Gran # (Auto) PT INR APTT PTT Ratio Sodium Potassium Chloride Carbon Dioxide Anion Gap BUN Creatinine Est Cr Clr Drug Dosing Est GFR ( Amer) Est GFR (Non-Af Amer) BUN/Creatinine Ratio Glucose POC Glucose Calcium Magnesium Total Bilirubin AST ALT Alkaline Phosphatase Troponin I High Sens Total Protein Albumin Globulin Albumin/Globulin Ratio Triglycerides Cholesterol LDL Cholesterol, Calc VLDL Cholesterol, Calc HDL Cholesterol Cholesterol/HDL Ratio Vitamin B12 Urine Color Urine Appearance Urine pH Ur Specific [place] Urine Protein Urine Glucose (UA) Urine Ketones Urine Blood Urine Nitrite Urine Bilirubin Urine Urobilinogen Ur Leukocyte Esterase Urine WBC (Auto) Urine RBC (Auto) U Hyaline Cast (Auto) U Epithel Cells (Auto) Urine Bacteria (Auto) Urine Yeast Adenovirus (PCR) B. pertussis DNA (PCR) B.parapertussis DNA PCR Lyme Disease Screen Negative C. pneumoniae DNA (PCR) Coronavirus OC43 (PCR) Coronavirus HKU1 (PCR) Coronavirus 229E (PCR) SARS-CoV-2 (PCR) Coronavirus NL63 (PCR) Human Metapneumovir PCR Influenza Type A (PCR) Influenza Type B (PCR) M. pneumoniae (PCR) Parainfluenza 1 (PCR) Parainfluenza 2 (PCR) Parainfluenza 3 (PCR) Parainfluenza 4 (PCR) RSV (PCR) Entero/Rhino (PCR) Blood Type Antibody Screen Diagnostic Findings Chest X-Ray 03/20/24 22:07 XR chest 1V portable HISTORY: neuro deficit, acute stroke suspected COMPARISON: Chest CTA 10/10/2019. FINDINGS: No pneumothorax. No pleural effusions. The cardiac silhouette remains enlarged. The lungs are clear. No acute fractures. IMPRESSION: Stable cardiomegaly. Otherwise, no acute process within the chest. ACT 112: Negative or not required by law. Electronically signed by: Hayder Lozoya M.D. 03/21/2024 8:[address] 03/20/24 22:07 CR Exam(s): CT HEAD Without Contrast EXAM: CT Head Without Intravenous Contrast CLINICAL HISTORY: Reason for exam: neuro deficit, acute stroke suspected. TECHNIQUE: Axial computed tomography images of the head/brain without intravenous contrast. Automated exposure control was utilized for the study. A dose lowering technique was utilized adhering to the principles of ALARA. COMPARISON: No relevant prior studies available. FINDINGS: Brain: Remote ischemic injury of the right cerebellum.. No hemorrhage. No significant white matter disease. No edema. Ventricles: Unremarkable. No ventriculomegaly. Bones/joints: Unremarkable. No acute fracture. Soft tissues: Unremarkable. Sinuses: Unremarkable as visualized. No acute sinusitis. Mastoid air cells: Unremarkable as visualized. No mastoid effusion. IMPRESSION: No evidence of acute intracranial pathology. Communications: Call Doctor Stroke Electronically signed by: Jeannine Rivero MD 03/20/24 22:50 PM Head CTA 03/20/24 22:07 CR Exam(s): CTA HEAD With Contrast IV Amt: 117 ml opti 320 EXAM: CT Angiography Head With Intravenous Contrast CLINICAL HISTORY: Reason for exam: neuro deficit, acute stroke suspected. TECHNIQUE: Axial computed tomographic angiography images of the head with intravenous contrast. Automated exposure control was utilized for the study. A dose lowering technique was utilized adhering to the principles of ALARA. MIP reconstructed images were created and reviewed. CONTRAST: Patient received 117 ml opti 320 of IV contrast COMPARISON: No relevant prior studies available. FINDINGS: The dural venous sinuses are patent. Right internal carotid artery: No acute findings. Intracranial segment is patent with no significant stenosis. No aneurysm. Right anterior cerebral artery: Unremarkable. No occlusion or significant stenosis. No aneurysm. Right middle cerebral artery: Unremarkable. No occlusion or significant stenosis. No aneurysm. Right posterior cerebral artery: Unremarkable. No occlusion or significant stenosis. No aneurysm. Right vertebral artery: Unremarkable as visualized. Left internal carotid artery: No acute findings. Intracranial segment is patent with no significant stenosis. No aneurysm. Left anterior cerebral artery: Unremarkable. No occlusion or significant stenosis. No aneurysm. Left middle cerebral artery: Unremarkable. No occlusion or significant stenosis. No aneurysm. Left posterior cerebral artery: Unremarkable. No occlusion or significant stenosis. No aneurysm. Left vertebral artery: Unremarkable as visualized. Basilar artery: Unremarkable. No occlusion or significant stenosis. No aneurysm. IMPRESSION: Negative CT angiogram of the head. Communications: Verify Receipt Call Doctor Stroke Electronically signed by: Jeannine Rivero MD 03/20/24 22:53 PM Neck CTA 03/20/24 22:07 CR Exam(s): CTA NECK With Contrast IV Amt: 117 ml opti 320 EXAM: CT Angiography Neck With Intravenous Contrast CLINICAL HISTORY: Reason for exam: neuro deficit, acute stroke suspected. TECHNIQUE: Routine carotid CT angiography protocol was performed with intravenous contrast. NASCET criteria using the distal ICAs for comparison were used for evaluation of stenoses. Automated exposure control was utilized for the study. A dose lowering technique was utilized adhering to the principles of ALARA. MIP reconstructed images were created and reviewed. CONTRAST: Patient received 117 ml opti 320 of IV contrast COMPARISON: None. FINDINGS: VASCULATURE: Right common carotid artery: Unremarkable. No occlusion or significant stenosis. No dissection. Right internal carotid artery: Unremarkable. Extracranial segment is patent with no occlusion or significant stenosis. No dissection. Right external carotid artery: Unremarkable. No occlusion. Right vertebral artery: Unremarkable. No occlusion or significant stenosis. No dissection. Left common carotid artery: Unremarkable. No occlusion or significant stenosis. No dissection. Left internal carotid artery: Unremarkable. Extracranial segment is patent with no occlusion or significant stenosis. No dissection. Left external carotid artery: Unremarkable. No occlusion. Left vertebral artery: Unremarkable. No occlusion or significant stenosis. No dissection. NECK: Bones/joints: Moderate spinal canal stenosis at C5-6. No acute fracture. Soft tissues: Unremarkable. Lung apices: Bronchitis, which may be of infectious or inflammatory etiologies. CAROTID STENOSIS REFERENCE USING NASCET CRITERIA: % ICA stenosis = (1 - narrowest ICA diameter/diameter of distal cervical ICA) x 100. Mild - <50% stenosis. Moderate - 50-69% stenosis. Severe - 70-94% stenosis. Near occlusion - 95-99% stenosis. Occluded - 100% stenosis. IMPRESSION: Negative CTA neck. Communications: Call Doctor Stroke Electronically signed by: Jeannine Rivero MD 03/20/24 22:55 PM Brain MRI 03/21/24 02:35 MR brain wo/w con HISTORY: 78 years-old Female stroke like symptoms acute strokelike symptoms COMPARISON: Head CT 03/20/2024 TECHNIQUE: Multiplanar multisequence MRI of the brain was obtained with and without IV contrast. FINDINGS: Study is motion degraded. No restricted diffusion. Unremarkable midline structures. Degenerative changes of the cervical spine. Cerebral venous sinuses and major arterial flow voids appear patent. Prior bilateral lens repair. The mastoid air cells and paranasal sinuses are generally clear. No acute intracranial hemorrhage, midline shift, abnormal extra-axial collection, hydrocephalus or intra-axial mass. Involutional changes with minimal scattered T2/FLAIR hyperintense foci throughout the white matter suggestive of chronic microvascular ischemic disease. No abnormal enhancement. IMPRESSION: 1. No acute intracranial abnormality, specifically no acute or subacute infarct identified. 2. No abnormal enhancement. ACT 112: Negative or not required by law. The above report was generated using voice recognition software. It may contain grammatical, syntax or spelling errors. Electronically signed by: Luis Aranda M.D. 03/21/2024 10:01 AM (1) Altered mental status, unspecified Altered mental status type: unspecified Qualified Code(s): R41.82 - Altered mental status, unspecified
[2024-03-21] MEDS: ONDANSETRON INJ 2 MG/ML 2 ML VIAL IV PRN (10:44)
--- NOTE | 2024-03-21 12:18 | Hospitalist Progress Note ---
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 Laboratory studies and imaging studies unremarkable at this time. Phone conversation with patient's daughter. She reports patient has been struggling with rapidly progressing memory issues over the past few weeks. Mostly evidenced by her inability to use her phone normally. Also patient not eating normally and stating that there is no food in the house despite evidence to see otherwise. Daughter states that patient has never had any mental health history. No history of illicit drug use. Takes her medications faithfully. Would not have any access to any other persons medications or drugs. Daughter states that she has noticed some weight loss in the patient. States that she has been basically drinking iced tea. When asked about the endometrial mass. 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 Appears reviewing [facility] that a appointment was canceled. A PCP appointment was rescheduled by the physician for April. Communication with neurology, no additional recommendations at this time, recommend continuing observation Patient ruled out for acute stroke, tay for [facility] Concern patient's nausea may be due to uterine mass possible metastasis. Check CT of the abdomen pelvis Consult psychiatry, concern patient may be having rapidly progressing vascular dementia as possible etiology for her altered mental status over the past few weeks Check ammonia level and TSH, check urine drug screen, RPR Therapies Care management, anticipate patient may need higher level of care at the time of discharge Admission and Anticipated Discharge Date Admission Date: March 21, 2024 Subjective Patient awake and able to answer questions. Orientation waxes and wanes. Able to give some accurate history. Denies any history of mental health issues. Denies any pain or shortness of breath. States that she is chronically nauseated. Has not been able to eat well for weeks. Physical Exam Physical Exam: Constitutional: Alert, nontoxic in appearance HEENT: Mucous membranes moist. Repetitive oral/tongue protrusion mastication Lungs: Clear to auscultation, decreased, no wheezes rales or rhonchi CV: S1-S2, regular Abdomen: Soft, nontender, nondistended Extremities: No significant edema Neuro: No focal deficits Psych: Orientation waxing and waning, memory deficits Results & Data Results & Data Vital Signs (Past 12 Hours) Vital Signs Pulse Pulse Resp BP BP Pulse Ox Pulse Ox 03/21/24 10:00 90 18 114/75 98 03/21/24 06:30 80 20 95 03/21/24 06:06 87 21 97 03/21/24 05:30 85 19 98 03/21/24 05:09 90 20 98 03/21/24 04:36 93 H 18 114/68 98 03/21/24 04:00 90 19 114/68 97 03/21/24 03:00 92 H 24 108/76 100 03/21/24 02:35 03/21/24 02:35 97 03/21/24 02:30 92 H 23 96 03/21/24 02:28 84 03/21/24 02:00 90 27 H 105/71 99 03/21/24 01:33 96 H 27 H 119/70 98 03/21/24 01:00 102 H 23 96 O2 Del Method O2 Del Method 03/21/24 10:00 Room Air 03/21/24 06:30 03/21/24 06:06 03/21/24 05:30 03/21/24 05:09 03/21/24 04:36 Room Air 03/21/24 04:00 Room Air 03/21/24 03:00 Room Air 03/21/24 02:35 Room Air 03/21/24 02:35 Room Air 03/21/24 02:30 Room Air 03/21/24 02:28 03/21/24 02:00 Room Air 03/21/24 01:33 Room Air 03/21/24 01:00 Room Air Diagnostic Findings Reviewed imaging, laboratory and diagnostic studies. Pertinent findings as below. Brain MRI negative for acute findings, some white matter disease Reviewed outside EMR, patient recently diagnosed with endometrial mass, has not had subsequent follow-up to date, reviewed pelvic ultrasound report B12 greater than 1500 Urinalysis negative for infection Critical Care Time Prolonged Care Time 60 minutes
[2024-03-21 12:35] LABS: Amphetamines+Metham, Urine Neg (Neg); Barbiturates, Urine Neg (Neg); Benzodiazepine, Urine Neg (Neg); Cocaine, Urine Neg (Neg); Fentanyl, Urine Neg (Neg); MDMA (Ecstacy), Urine Neg (Neg); Marijuana, Urine Neg (Neg); Methadone, Urine Neg (Neg); Opiate, Urine Neg (Neg); Phencyclidine, Urine Neg (Neg)
[2024-03-21 14:11] LABS: Estimated Average Glucose 131 mg/dl; Hemoglobin A1C 6.2 % (4.5-5.6)
[2024-03-21 15:22] LABS: iSTAT Creatinine 1.3 mg/dl (0.6-1.3); iSTAT Hemoglobin 13.9 g/dl (12.0-16.0); iSTAT Ionized Calcium 1.43 mmol/l (1.12-1.32); iSTAT Potassium 4.3 mmol/L (3.3-5.0)
[2024-03-21] MEDS: COMBIGAN~ORDER AWAITING ACTION SCH (15:53)
--- NOTE | 2024-03-21 19:36 | CT Scan Report ---
Exam(s): CT ABDOMEN + PELVIS With Contrast Oral - High Density Amt: 2 bottles of barium EXAM: CT Abdomen and Pelvis With Intravenous Contrast CLINICAL HISTORY: Reason for exam: nausea, endometrial mass. TECHNIQUE: Axial computed tomography images of the abdomen and pelvis with intravenous contrast. CTDI is 25.66 mGy and DLP is 1162.14 mGy-cm. Automated exposure control was utilized for the study. A dose lowering technique was utilized adhering to the principles of ALARA. CONTRAST: Patient received 2 bottles of barium of Oral - High Density contrast COMPARISON: None FINDINGS: Lung bases: Unremarkable. No mass. No consolidation. Heart: Mild cardiomegaly. ABDOMEN: Liver: Unremarkable. No mass. Gallbladder and bile ducts: Probable cholecystectomy. No ductal dilation. Pancreas: Unremarkable. No mass. No ductal dilation. Spleen: Small splenule. Adrenals: Unremarkable. No mass. Kidneys and ureters: Excreting contrast in the renal collecting systems. No hydronephrosis. Stomach and bowel: Diverticulosis without evidence of diverticulitis. No small bowel obstruction. PELVIS: Appendix: Appendix is not visualized on this exam. Bladder: Underdistended bladder containing excreted contrast. Reproductive: Nonspecific enlarged uterus, not well evaluated on this exam. Further evaluation could be performed with ultrasound if clinically indicated. ABDOMEN and PELVIS: Intraperitoneal space: Unremarkable. No free air. No significant fluid collection. Bones/joints: Degenerative changes of the spine. No acute fracture. No dislocation. Soft tissues: Postsurgical changes in the lower anterior abdominal wall. Vasculature: Phleboliths in the pelvis. No abdominal aortic aneurysm. Lymph nodes: Nonspecific enlarged retroperitoneal lymph nodes. IMPRESSION: 1. Nonspecific enlarged uterus, not well evaluated on this exam. Further evaluation could be performed with ultrasound if clinically indicated. 2. Nonspecific enlarged retroperitoneal lymph nodes. Electronically signed by: Mora Conteh M.D. 03/21/24 19:35 PM
[2024-03-22 07:30] LABS: Basophils # (auto) 0.02 K/uL (0.00-0.20); Basophils % (auto) 0.2 %; Eosinophils # (auto) 0.11 K/uL (0.00-0.50); Eosinophils % (auto) 1.1 %; Hematocrit (blood only) 35.4 % (37.0-47.0); Hemoglobin 11.7 g/dl (12.0-16.0); Immature Granulocytes # (auto) 0.07 K/uL (0.01-0.20); Immature Granulocytes % (auto) 0.7 %; Lymphocytes # (auto) 1.38 K/uL (1.20-3.40); Lymphocytes % (auto) 14.1 %; Mean Corpuscular Hemoglobin 28.1 pg (25.0-34.0); Mean Corpuscular Hgb Conc 33.1 g/dL (32.0-36.0); Mean Corpuscular Volume 84.9 fL (80.0-100.0); Mean Platelet Volume 11.1 fL (9.4-12.4); Monocytes # (auto) 0.96 K/uL (0.11-0.59); Monocytes % (auto) 9.8 %; Neutrophils # (auto) 7.22 K/uL (1.40-6.50); Neutrophils % (auto) 74.1 %; Platelet Count 262 K/uL (130-400); RDW Standard Deviation 43.5 fL (36.4-46.3); Red Blood Count 4.17 M/uL (4.20-5.40); White Blood Count 9.76 K/ul (4.8-10.8)
[2024-03-22 07:45] LABS: BUN Creatinine Ratio 10.2 (10-20); Calcium 10.2 mg/dl (8.6-10.3); Creatinine Clr Calc Pharmacy 49.2 ml/min; Est GFR (African American) 57.7 ml/min; Est GFR (Non-African American) 49.8 ml/min; Potassium 3.5 mmol/L (3.5-5.1)
[2024-03-22] MEDS: ACETAMINOPHEN 325 MG TAB PO PRN (08:48)
--- NOTE | 2024-03-22 12:07 | Psychiatric Consultation ---
Date of Consultation March 22, 2024 Impression / Recommendations Impression Julia Echeverria is a 78 yo woman with a history of mixed hyperlipidemia, history of hypercalcemia, history of hyperparathyroidism, history of multiple thyroid nodules, history of CKD stage III, history of moderate tricuspid regurgitation, diastolic dysfunction, GERD, CKD stage III, j generalized osteoarthritis, glaucoma, history of spinal stenosis, history of PE admitted for confusion. Psychiatry consulted for "Rapidly progressive dementia?". Diagnostically no evidence at this time for a primary psychiatric condition leading to abrupt mental status change. Differential certainly includes hypoactive delirium vs progressive dementia (prion and FTD tend to be most rapid, but neurology would be best suited to speak to this, defer to their expertise) vs sudden step-ramirez worsening in function due to vascular dementia. Overall, I spent a total of 45 minutes with this case including review of chart records, review of labwork, review of EKG QTc, direct evaluation of the patient at bedside, discussion of the patient with the hospitalist provider, discussion with the psychiatric liason during clinical rounds, review of collateral historian information from the family and documentation in the electronic health record. (1) Delirium: (2) Altered mental status, unspecified: Altered mental status type: unspecified Qualified Code(s): R41.82 - Altered mental status, unspecified Plan -Continue medical workup to rule out and treat any underlying causes contributing to potential delirium, avoid or limit use of deliriogenic medications (benzodiazepines, opioids, anticholinergics) -Continue with delirium prevention measures: raising blinds during the day, closing at night, frequent re-orientation, contact with family/friends, explaining procedures/nursing care measures prior to physical contact, correct any hearing and visual impairments -For behavioral emergency: olanzapine 2.5 mg IM x 1 (DO NOT exceed 10mg per 24 hours, check EKG if IM dose required, NEVER co-administer with IM or IV benzodiazepines). Psych History Identifying Data Julia Echeverria is a 78 yo woman with a history of mixed hyperlipidemia, history of hypercalcemia, history of hyperparathyroidism, history of multiple thyroid nodules, history of CKD stage III, history of moderate tricuspid regurgitation, diastolic dysfunction, GERD, CKD stage III, j generalized osteoarthritis, glaucoma, history of spinal stenosis, history of PE admitted for confusion. Psychiatry consulted for "Rapidly progressive dementia?". Chief Complaint "Mmhmm" History of Present Illness Julia was brought to the hospital by family for acute worsening of memory and confusion including loss of skills such as being able to feed herself and forgetting typical weekly events (going to [place]) and routines. Today she is drowsy, but wakes briefly and is able to consent to allow for additionally collateral from her daughter. Denies having any current pain. Falls back to sleep quickly. Additionally collateral from her daughter per psych liason RN note: "Received call from patient's daughter, Debbie. She confirms patient does not have a history of psychiatric illness. Debbie reports patient has lived at [facility] for ~ 10 years. She has always been able to care for her self. At base line she has slow ambulation and uses a walker. She tends to repeat herself often but is oriented. She is very routine with her ADLs, medications, [place]/outings. On Sunday 03/18, patient had asked if Debbie brought something for pain, when she had asked her to bring paper towels. Debbie noticed weight loss and patient was unable to state when she last ate solid food. She was reporting GI upset. She opted to allow patient to rest and reassess the next day. Typically patient is on time and waiting for her ride to [place], patient was not on time and family had to follow up with her. Patient went to restaurant with daughter/family, patient was unable to feed herself pizza. She was ambulating extremely slow, had difficultly using restroom, and called family by wrong name. Shaunnas medications are bubble packed and there has been no new changes with medications. Patient does not typically use OTC medications." Allergies Allergy/AdvReac Type Severity Reaction Status Date / Time atorvastatin AdvReac stomach Verified 02/08/24 07:16 upset. brand name ok Home Medications Medication Instructions Recorded Confirmed Type apixaban 5 mg tablet (Eliquis) 5 mg PO BID 03/21/24 03/21/24 History brimonidine 0.2 %-timolol 0.5 % 1 drp OPB BID 03/21/24 03/21/24 History eye drops cholecalciferol (vitamin D3) 25 25 mcg PO DAILY 03/21/24 03/21/24 History mcg (1,000 unit) tablet dorzolamide 2 % eye drops 1 drp OPB TID 03/21/24 03/21/24 History lisinopril 5 mg tablet 5 mg PO DAILY 03/21/24 03/21/24 History pantoprazole 40 mg tablet,delayed 40 mg PO DAILY 03/21/24 03/21/24 History release potassium chloride 10 mEq 20 meq PO DAILY 03/21/24 03/21/24 History tablet,extended release rosuvastatin 10 mg tablet 10 mg PO DAILY 03/21/24 03/21/24 History Patient History Medical History Hx-TIA (transient ischemic attack) many years ago, occurred when walking to the bus for work, taken to hospital>no residual effects "reason for aspirin" per pt. half-way (current) use of anticoagulants Glaucoma Chronic kidney disease, stage III (moderate) Hx pulmonary embolism 2020, bilat., currently on eliquis Hx of deep venous thrombosis pt unsure of any details of this, "just knows she had this" Hypertension Hyperlipidemia GERD (gastroesophageal reflux disease) Surgical History Hx of right cataract extraction Hx of section x2, w/tubal ligation on last one Hx of appendectomy History of esophagogastroduodenoscopy (EGD) Hx of colonoscopy [place] teeth extracted Hx of tonsillectomy Family History Other Diabetes Social History Smoking Status: Unknown if ever smoked Second Hand Exposure: No; Do You Dip or Chew Tobacco: No; Preferred Language: Kiswahili Communication Ability: Effective Driver Manager Required: No Beliefs That Will Affect Care: None marital status: Current Living Situation: Alone Current Living Situation Comment: lives in apt. building Feels Safe at Home: Yes Assistive Devices: Cane, Raised Toilet Seat and Walker Physical Exam Vital Signs (Past 24 Hours): Last Vital Signs Temp 36.7 C 03/22/24 08:00 Pulse 96 H 03/22/24 08:00 Resp 17 03/22/24 08:00 BP 110/78 03/22/24 08:00 Pulse Ox 98 03/22/24 08:00 O2 Del Method Room Air 03/22/24 08:00 Results & Data (PSY) Medications Administered Acetaminophen (Acetaminophen 325 Mg Tab) 650 mg PO Q4H PRN PRN Reason: Pain or Fever Stop: 04/20/24 02:34 Last Admin: 03/22/24 08:48 Dose: 650 mg Documented By: AKIL Apixaban (Apixaban 5 Mg Tablet) 5 mg PO BID [facility] Stop: 04/20/24 08:59 Last Admin: 03/22/24 08:28 Dose: 5 mg Documented By: Admin: 03/21/24 20:52 Dose: 5 mg Documented By: Admin: 03/21/24 08:50 Dose: 5 mg Documented By: HS Aspirin (Aspirin 81 Mg Ectab) 81 mg PO DAILY NAIDA Stop: 04/20/24 08:59 Last Admin: 03/22/24 08:26 Dose: 81 mg Documented By: Admin: 03/21/24 08:50 Dose: 81 mg Documented By: HS Dorzolamide HCl (Dorzolamide Hcl 2% Oph Soln 10 Ml Btl) 1 drops OPB TID NAIAD Stop: 04/20/24 08:59 Last Admin: 03/22/24 08:27 Dose: 1 drops Documented By: Admin: 03/21/24 20:53 Dose: 1 drops Documented By: Admin: 03/21/24 15:47 Dose: 1 drops Documented By: Admin: 03/21/24 08:49 Dose: 1 drops Documented By: PAULA Lisinopril (Lisinopril 5 Mg Tab) 5 mg PO DAILY [facility] Stop: 04/20/24 08:59 Last Admin: 03/22/24 08:27 Dose: 5 mg Documented By: Admin: 03/21/24 08:50 Dose: 5 mg Documented By: PAULA Ondansetron HCl (Ondansetron Inj 2 Mg/Ml 2 Ml Vial) 4 mg IV Q6H PRN PRN Reason: Nausea And Vomiting Stop: 04/20/24 10:18 Last Admin: 03/21/24 10:44 Dose: 4 mg Documented By: RERE Pantoprazole Sodium (Pantoprazole 40 Mg Tab) 40 mg PO DAILY [facility] Stop: 04/20/24 08:59 Last Admin: 03/22/24 08:27 Dose: 40 mg Documented By: Admin: 03/21/24 08:50 Dose: 40 mg Documented By: HS Potassium Chloride (Potassium Chloride Crtab 20 Meq Tabcr) 20 meq PO DAILY NAIDA Stop: 04/20/24 08:59 Last Admin: 03/22/24 08:39 Dose: 20 meq Documented By: Admin: 03/21/24 08:49 Dose: 20 meq Documented By: HS Rosuvastatin Calcium (Rosuvastatin Calcium 10 Mg Tab) 10 mg PO DAILY NAIDA Stop: 04/20/24 08:59 Last Admin: 03/22/24 08:27 Dose: 10 mg Documented By: Admin: 03/21/24 08:50 Dose: 10 mg Documented By: HS Vitamin D (Cholecalciferol 25 Mcg (1000 Units) Tab) 25 mcg PO DAILY [facility] Stop: 04/20/24 08:59 Last Admin: 03/22/24 08:26 Dose: 25 mcg Documented By: Admin: 03/21/24 08:50 Dose: 25 mcg Documented By: PAULA Coding Level of Care Code 67026 IN/OBS CONSULT LVL 3,45M Diagnoses Delirium R41.0 Altered mental status, unspecified R41.82 Altered mental status type: unspecified
--- NOTE | 2024-03-22 12:57 | Hospitalist Progress Note ---
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 Patient states she ate a little bit better breakfast this morning. No definitive pain. Physical Exam Physical Exam: Constitutional: Alert HEENT: Mucous membranes moist. Oral/tongue movements resolved Lungs: Clear to auscultation, decreased, no wheezes rales or rhonchi CV: S1-S2, regular Abdomen: Soft, nontender, nondistended Extremities: No significant edema Neuro: No focal deficits, generalized weakness, oriented to person, date of , year, location, could describe the president. However at times seems confused and slow to answer questions Psych: Cooperative, flat affect Results & Data Results & Data Vital Signs (Past 12 Hours) Vital Signs Temp Pulse Resp BP Pulse Ox O2 Del Method 03/22/24 08:00 36.7 C 96 H 17 110/78 98 Room Air Diagnostic Findings Reviewed imaging, laboratory and diagnostic studies. Pertinent findings as below. CT abdomen pelvis report reviewed, retroperitoneal lymphadenopathy, enlarged uterus, no obstruction, no evidence of metastasis BMP, CBC stable Echocardiogram report reviewed, normal ejection fraction, small PFO
[2024-03-23 08:34] LABS: Basophils # (auto) 0.03 K/uL (0.00-0.20); Basophils % (auto) 0.3 %; Eosinophils # (auto) 0.16 K/uL (0.00-0.50); Eosinophils % (auto) 1.8 %; Hematocrit (blood only) 32.2 % (37.0-47.0); Hemoglobin 10.8 g/dl (12.0-16.0); Immature Granulocytes # (auto) 0.08 K/uL (0.01-0.20); Immature Granulocytes % (auto) 0.9 %; Lymphocytes # (auto) 1.09 K/uL (1.20-3.40); Lymphocytes % (auto) 12.2 %; Mean Corpuscular Hemoglobin 28.1 pg (25.0-34.0); Mean Corpuscular Hgb Conc 33.5 g/dL (32.0-36.0); Mean Corpuscular Volume 83.6 fL (80.0-100.0); Mean Platelet Volume 10.4 fL (9.4-12.4); Monocytes # (auto) 0.86 K/uL (0.11-0.59); Monocytes % (auto) 9.6 %; Neutrophils # (auto) 6.72 K/uL (1.40-6.50); Neutrophils % (auto) 75.2 %; Platelet Count 236 K/uL (130-400); RDW Coefficient of Variation 13.9 % (11.5-14.5); RDW Standard Deviation 42.5 fL (36.4-46.3); Red Blood Count 3.85 M/uL (4.20-5.40); White Blood Count 8.94 K/ul (4.8-10.8)
[2024-03-23 08:43] LABS: BUN Creatinine Ratio 12.2 (10-20); Creatinine Clr Calc Pharmacy 54.2 ml/min; Est GFR (African American) 64.9 ml/min; Potassium 3.8 mmol/L (3.5-5.1)
[2024-03-23] MEDS ORDERED: bisacodyL 10 MG SUPP PR PRN (12:26)
--- NOTE | 2024-03-23 12:34 | Hospitalist Progress Note ---
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 No other etiology for acute encephalopathy or delirium identified to date, delirium appears to be resolved Constipation, unclear when patient last had a bowel movement, may be the etiology of her abdominal discomfort. Trial of lactulose and do collect suppository Encouraged activity and therapies Trial of Remeron at bedtime to help stimulate her appetite Case management pursuing higher level of care Communication with neurology, no further recommendations. Phone conversation with patient's daughter and updated Admission and Anticipated Discharge Date Admission Date: March 21, 2024 Subjective Patient complaining of some abdominal discomfort today. Communication with nursing unclear when patient's last bowel movement was. Appetite still not gr eat Physical Exam Physical Exam: Constitutional: Sleepy, easily awakened HEENT: Mucous membranes moist. Lungs: Clear to auscultation, decreased, no wheezes rales or rhonchi CV: S1-S2, regular Abdomen: Soft, nontender, nondistended mild epigastric tenderness Extremities: No significant edema Neuro: Generalized weakness Psych: Cooperative, normal mood Results & Data Results & Data Vital Signs (Past 12 Hours) Vital Signs Temp Pulse Resp BP Pulse Ox O2 Del Method 03/23/24 07:44 37.3 C 101 H 18 115/81 97 Room Air Diagnostic Findings Reviewed imaging, laboratory and diagnostic studies. Pertinent findings as below. Laboratory studies stable Echocardiogram report reviewed, normal ejection fraction, small PFO
[2024-03-23] MEDS: LACTULOSE SYRUP 20 GM/30 ML UDC PO SCH (15:01)
[2024-03-23] MEDS: MIRTAZAPINE TAB 15 MG TAB PO SCH (21:34)
[2024-03-24] MEDS: POLYETHYLENE (MIRALAX) 17 GM PACK PO SCH (08:38)
--- NOTE | 2024-03-24 11:29 | Hospitalist Progress Note ---
Date of Service March 24, 2024 Assessment & Plan (1) Vascular dementia of acute onset with behavioral disturbance: (2) Acute metabolic encephalopathy: (3) Delirium: (4) Endometrial mass: (5) Chronic nausea: (6) Hyperparathyroidism: (7) Hx pulmonary embolism: (8) PFO (patent foramen ovale): Plan Patient with rapidly progressive dementia the point where she can no longer live independently. Patient has been ruled out for acute stroke, PFO small, at this stage do not feel that closure needs to be pursued. On chronic anticoagulation prior to admission Continue current care Continue therapies Case management pursuing placement options Admission and Anticipated Discharge Date Admission Date: March 21, 2024 Subjective Patient awake. Answering questions appropriately. Could recall conversation she had with her daughter last night about going to a place for rehab Physical Exam Physical Exam: Constitutional: Alert HEENT: Mucous membranes moist. Lungs: Clear to auscultation, decreased, no wheezes rales or rhonchi CV: S1-S2, regular Abdomen: Soft, nontender, nondistended Extremities: No significant edema Neuro: No focal deficits, slow to respond to questions Psych: Cooperative, normal mood Results & Data Results & Data Vital Signs (Past 12 Hours) Vital Signs Temp Pulse Resp BP Pulse Ox O2 Del Method 03/24/24 07:34 37.7 C H 110 H 18 121/83 98 Room Air
--- NOTE | 2024-03-24 13:04 | Electrocardiogram Report ---
Test Reason : Blood Pressure : */* mmHG Vent. Rate : 106 BPM Atrial Rate : 106 BPM P-R Int : 160 ms QRS Dur : 74 ms QT Int : 324 ms P-R-T Axes : 27 -31 3 degrees QTcB Int : 430 ms Sinus tachycardia Left axis deviation Low voltage QRS Cannot rule out Anterior infarct (cited on or before 20-Mar-2024) Abnormal ECG When compared with ECG of 20-Mar-2024 22:15, No significant change was found Confirmed by Fernando Morales ([id number]) on 03/24/2024 1:03:47 PM Referred By: REFERRED SELF Confirmed By: Fernando Morales
[2024-03-24] MEDS: LIDOCAINE 5% 1 PATCH TD STA (20:29)
[2024-03-25 12:12] LABS: Appearance Urine Turbid (Clear); Bacteria Urine Automated 2+ (None Seen); Bilirubin Urine Negative (Negative); Blood Urine 3+ (Negative); Calcium Oxalate Crystals Urine Present (None Prsent); Color Urine Dark Yellow; Glucose Urine UA Negative (Negative); Ketones Urine Trace (Negative); Leukocyte Esterase Urine 3+ (Negative); Nitrite Urine Negative (Negative); Protein Urine 2+ (Negative); RBC Urine Automated >20 /hpf (0-2); Specific Gravity Urine 1.022 (1.000-1.030); Urobilinogen Urine Negative (Negative); WBC Urine Automated >50 /hpf (0-5)
--- NOTE | 2024-03-25 18:48 | Hospitalist Progress Note ---
Date of Service March 25, 2024 Assessment & Plan (1) Vascular dementia of acute onset with behavioral disturbance: (2) Acute metabolic encephalopathy: (3) Delirium: (4) Endometrial mass: (5) Chronic nausea: (6) Hyperparathyroidism: (7) Hx pulmonary embolism: (8) PFO (patent foramen ovale): Plan Ms. Echeverria is a 78-year-old female with past medical history significant for mixed hyperlipidemia, history of hypercalcemia, history of hyperparathyroidism, history of multiple thyroid nodules, history of CKD stage III, history of moderate tricuspid regurgitation, diastolic dysfunction, GERD, CKD stage III, j generalized osteoarthritis, glaucoma, history of spinal stenosis, history of PE was brought in by daughter because of confusion on 03/21, work up concerning for progressive vascular dementia. Neurology and psych evaluated. Patient pending placement however, noted to be febrile. UA ordered c/f infection. #Acute encephalopathy, likely iso UTI #Vascular dementia CT head, CTA head and neck unremarkable Chest x-ray unremarkable UA is unremarkable on admission, however positive 03/25 iso fevers Labs WBC 13. Creatinine 1.4 LFTs okay Continue home statin and aspirin continue supportive care Continue with delirium prevention measures: raising blinds during the day, closing at night, frequent re-orientation, contact with family/friends, explaining procedures/nursing care measures prior to physical contact, correct any hearing and visual impairments #Acute UTI #Fevers start CTX follow culture #History of pulmonary embolism On Eliquis #CKD stage III stable cr, repeat bmp in am 2/2 c/f infection #Chronic HFpEF EF 55-60% on 03/21 Monitor for volume overload #Glaucoma Continue eyedrops #Hyperlipidemia Statin #Hypertension On lisinopril #GERD On Protonix #Vaginal spotting Follow-up with PCP/gynecology DVT prophylaxis On Eliquis Disposition Telemetry Full code Admission and Anticipated Discharge Date Admission Date: March 21, 2024 Subjective NAEO Rest ing in bed quietly this am Noted to be febrile this am/afternoon Poor appetite and sleeping mostly this am Physical Exam Constitutional: resting, no distress but more lethargic than prior reports it seems Respiratory: normal respiratory effort, lungs clear to auscultation Cardiovascular: tachycardic Results & Data Results & Data Vital Signs (Past 12 Hours) Vital Signs Temp Pulse Resp BP Pulse Ox O2 Del Method 03/25/24 14:50 37.6 C H 106 H 18 125/85 96 Room Air 03/25/24 07:48 37.8 C H 103 H 18 131/87 94 Room Air Laboratory Results Urine 03/25/24 Range/Units 11:20 Urine Color Dark Yellow Urine Appearance Turbid A (Clear) Urine pH 5.0 (4.5-7.5) Ur Specific [place] 1.022 (1.000-1.030) Urine Protein 2+ H (Negative) Urine Glucose (UA) Negative (Negative) Medications Administered Home Medications Medication Instructions Recorded Confirmed Last Taken apixaban 5 mg tablet (Eliquis) 5 mg PO BID 03/21/24 03/21/24 Unknown brimonidine 0.2 %-timolol 0.5 % 1 drp OPB BID 03/21/24 03/21/24 Unknown eye drops cholecalciferol (vitamin D3) 25 25 mcg PO DAILY 03/21/24 03/21/24 Unknown mcg (1,000 unit) tablet dorzolamide 2 % eye drops 1 drp OPB TID 03/21/24 03/21/24 Unknown lisinopril 5 mg tablet 5 mg PO DAILY 03/21/24 03/21/24 Unknown pantoprazole 40 mg tablet,delayed 40 mg PO DAILY 03/21/24 03/21/24 Unknown release potassium chloride 10 mEq 20 meq PO DAILY 03/21/24 03/21/24 Unknown tablet,extended release rosuvastatin 10 mg tablet 10 mg PO DAILY 03/21/24 03/21/24 Unknown Active Medications Generic Name Dose Route Start Last Admin Trade Name Freq PRN Reason Stop Dose Admin Acetaminophen 650 mg 03/21/24 02:35 03/24/24 19:24 Acetaminophen 325 Mg Tab PO 04/20/24 02:34 650 mg Q4H PRN Administration Pain or Fever Apixaban 5 mg 03/21/24 09:00 03/25/24 08:56 Apixaban 5 Mg Tablet PO 04/20/24 08:59 5 mg BID NAIDA Administration Aspirin 81 mg 03/21/24 09:00 03/25/24 08:57 Aspirin 81 Mg Ectab PO 04/20/24 08:59 81 mg DAILY NAIDA Administration Dorzolamide HCl 1 drops 03/21/24 09:00 03/25/24 15:47 Dorzolamide Hcl 2% Oph Soln 10 Ml Btl OPB 04/20/24 08:59 1 drops TID NAIDA Administration Lisinopril 5 mg 03/21/24 09:00 03/25/24 08:57 Lisinopril 5 Mg Tab PO 04/20/24 08:59 5 mg DAILY NAIDA Administration Mirtazapine 15 mg 03/23/24 21:00 03/24/24 20:32 Mirtazapine Tab 15 Mg Tab PO 04/22/24 20:59 15 mg HS NAIDA Administration Miscellaneous 1 each 03/25/24 09:00 03/25/24 11:00 Remove Lidoderm Patch N/A 04/24/24 08:59 1 each DAILY NAIDA Administration Ondansetron HCl 4 mg 03/21/24 10:19 03/24/24 17:01 Ondansetron Inj 2 Mg/Ml 2 Ml Vial IV 04/20/24 10:18 4 mg Q6H PRN Administration Nausea And Vomiting Pantoprazole Sodium 40 mg 03/21/24 09:00 03/25/24 08:56 Pantoprazole 40 Mg Tab PO 04/20/24 08:59 40 mg DAILY NAIDA Administration Polyethylene Glycol 17 gm 03/24/24 09:00 03/25/24 08:57 Polyethylene (Miralax) 17 Gm Pack PO 04/23/24 08:59 Not Given DAILY NAIDA Potassium Chloride 20 meq 03/21/24 09:00 03/25/24 09:01 Potassium Chloride Crtab 20 Meq Tabcr PO 04/20/24 08:59 20 meq DAILY NAIDA Administration Rosuvastatin Calcium 10 mg 03/21/24 09:00 03/25/24 08:57 Rosuvastatin Calcium 10 Mg Tab PO 04/20/24 08:59 10 mg DAILY NAIDA Administration Vitamin D 25 mcg 03/21/24 09:00 03/25/24 08:57 Cholecalciferol 25 Mcg (1000 Units) Tab PO 04/20/24 08:59 25 mcg DAILY NAIDA Administration
[2024-03-25] MEDS: cefTRIAXone SODIUM 2,000 MG/50 ML BAG IV SCH (19:31)
[2024-03-25] MEDS: LIDOCAINE 5% 1 PATCH TD SCH (19:59)
[2024-03-26] MEDS: LACTATED RINGER'S 1,000 ML IV ONE (00:40)
[2024-03-26 01:09] LABS: Basophils # (auto) 0.04 K/uL (0.00-0.20); Basophils % (auto) 0.3 %; Eosinophils # (auto) 0.15 K/uL (0.00-0.50); Eosinophils % (auto) 1.1 %; Hematocrit (blood only) 34.2 % (37.0-47.0); Hemoglobin 10.8 g/dl (12.0-16.0); Immature Granulocytes # (auto) 0.09 K/uL (0.01-0.20); Immature Granulocytes % (auto) 0.7 %; Lymphocytes # (auto) 1.98 K/uL (1.20-3.40); Lymphocytes % (auto) 14.5 %; Mean Corpuscular Hemoglobin 26.9 pg (25.0-34.0); Mean Corpuscular Hgb Conc 31.6 g/dL (32.0-36.0); Mean Corpuscular Volume 85.3 fL (80.0-100.0); Mean Platelet Volume 10.4 fL (9.4-12.4); Monocytes # (auto) 1.38 K/uL (0.11-0.59); Monocytes % (auto) 10.1 %; Neutrophils # (auto) 10.05 K/uL (1.40-6.50); Neutrophils % (auto) 73.3 %; Platelet Count 244 K/uL (130-400); RDW Coefficient of Variation 13.9 % (11.5-14.5); RDW Standard Deviation 42.8 fL (36.4-46.3); Red Blood Count 4.01 M/uL (4.20-5.40); White Blood Count 13.69 K/ul (4.8-10.8)
[2024-03-26 01:25] LABS: BUN Creatinine Ratio 15.8 (10-20); Creatinine Clr Calc Pharmacy 52.6 ml/min; Est GFR (African American) 62.6 ml/min; Magnesium 1.5 mg/dl (1.7-2.4); Phosphorus 2.2 mg/dl (2.5-4.9); Potassium 3.8 mmol/L (3.5-5.1)
[2024-03-26] MEDS: MAGNESIUM SULFATE / D5W 1 GM/100 ML BAG IV SCH (02:04)
--- NOTE | 2024-03-26 13:59 | Hospitalist Progress Note ---
Date of Service March 26, 2024 Assessment & Plan (1) Vascular dementia of acute onset with behavioral disturbance: (2) Acute metabolic encephalopathy: (3) Delirium: (4) Endometrial mass: (5) Chronic nausea: (6) Hyperparathyroidism: (7) Hx pulmonary embolism: (8) PFO (patent foramen ovale): Plan Ms. Echeverria is a 78-year-old female with past medical history significant for mixed hyperlipidemia, history of hypercalcemia, history of hyperparathyroidism, history of multiple thyroid nodules, history of CKD stage III, history of moderate tricuspid regurgitation, diastolic dysfunction, GERD, CKD stage III, j generalized osteoarthritis, glaucoma, history of spinal stenosis, history of PE was brought in by daughter because of confusion on 03/21, work up concerning for progressive vascular dementia. Neurology and psych evaluated. Patient pending placement however, noted to be febrile. UA ordered c/f infection. Culture pending. #Acute encephalopathy, likely iso UTI #Vascular dementia CT head, CTA head and neck unremarkable Chest x-ray unremarkable UA is unremarkable on admission, however positive 03/25 iso fevers Labs WBC 13 6.9. Continue home statin and aspirin continue supportive care Continue with delirium prevention measures: raising blinds during the day, closing at night, frequent re-orientation, contact with family/friends, explaining procedures/nursing care measures prior to physical contact, correct any hearing and visual impairments #Abnormal UA c/f uti #Fevers continue CTX follow culture #electrolyte abnormalities started mag supplementation Replace phos continue k supplement #History of pulmonary embolism On Eliquis #CKD stage III stable cr, #Chronic HFpEF EF 55-60% on 03/21 Monitor for volume overload #Glaucoma Continue eyedrops #Hyperlipidemia Statin #Hypertension On lisinopril, held secondary to borderline pressures #GERD On Protonix #Vaginal spotting Follow-up with PCP/gynecology DVT prophylaxis On Eliquis Disposition Telemetry Full code Admission and Anticipated Discharge Date Admission Date: March 21, 2024 Subjective NAEO Reports poor night sleep but otherwise no acute concerns Denies fevers, chills, or urinary concerns however notably more interactive than day prior WBC to 13 and TMAX 37.8 Physical Exam Constitutional: WD/WN, vitals as above sitting in bedside chair, more interactive than day prior Respiratory: normal respiratory effort, lungs clear to auscultation Cardiovascular: RRR, no murmur, no edema Gastrointestinal (Abdomen): normal bowel sounds, soft, nontender, no hepatosplenomegaly Results & Data Results & Data Vital Signs (Past 12 Hours) Vital Signs Temp Pulse Resp BP Pulse Ox O2 Del Method 03/26/24 07:09 37.0 C 99 H 16 115/77 95 Room Air 03/26/24 05:30 98 H 16 118/77 96 Room Air Laboratory Results Short CBC 03/26/24 Range/Units 00:52 WBC 13.69 H (4.8-10.8) K/ul Hgb 10.8 L (12.0-16.0) g/dl Hct 34.2 L (37.0-47.0) % Plt Count 244 (130-400) K/uL BMP 03/26/24 00:52 Sodium 137 Potassium 3.8 Chloride 108 H Carbon Dioxide 21 BUN 16 Creatinine 1.01 Glucose 105 H Calcium 10.0 Medications Administered Home Medications Medication Instructions Recorded Confirmed Last Taken apixaban 5 mg tablet (Eliquis) 5 mg PO BID 03/21/24 03/21/24 Unknown brimonidine 0.2 %-timolol 0.5 % 1 drp OPB BID 03/21/24 03/21/24 Unknown eye drops cholecalciferol (vitamin D3) 25 25 mcg PO DAILY 03/21/24 03/21/24 Unknown mcg (1,000 unit) tablet dorzolamide 2 % eye drops 1 drp OPB TID 03/21/24 03/21/24 Unknown lisinopril 5 mg tablet 5 mg PO DAILY 03/21/24 03/21/24 Unknown pantoprazole 40 mg tablet,delayed 40 mg PO DAILY 03/21/24 03/21/24 Unknown release potassium chloride 10 mEq 20 meq PO DAILY 03/21/24 03/21/24 Unknown tablet,extended release rosuvastatin 10 mg tablet 10 mg PO DAILY 03/21/24 03/21/24 Unknown Active Medications Generic Name Dose Route Start Last Admin Trade Name Rishiq PRN Reason Stop Dose Admin Acetaminophen 650 mg 03/21/24 02:35 03/26/24 02:03 Acetaminophen 325 Mg Tab PO 04/20/24 02:34 650 mg Q4H PRN Administration Pain or Fever Apixaban 5 mg 03/21/24 09:00 03/26/24 11:24 Apixaban 5 Mg Tablet PO 10/17/24 08:59 5 mg BID NAIDA Administration Aspirin 81 mg 03/21/24 09:00 03/26/24 11:23 Aspirin 81 Mg Ectab PO 04/20/24 08:59 81 mg DAILY NAIDA Administration Dorzolamide HCl 1 drops 03/21/24 09:00 03/26/24 11:23 Dorzolamide Hcl 2% Oph Soln 10 Ml Btl OPB 04/20/24 08:59 1 drops TID NAIDA Administration Ceftriaxone Sodium 2,000 mg in 50 mls @ 100 mls/hr 03/25/24 19:00 03/25/24 20:25 Rocephin IV 03/30/24 18:59 Infused Q24H NAIDA Infusion Lidocaine 1 patch 03/25/24 21:00 03/25/24 19:59 Lidocaine 5% 1 Patch TD 04/24/24 20:59 1 patch HS NAIDA Administration Lisinopril 5 mg 03/21/24 09:00 03/26/24 10:54 Lisinopril 5 Mg Tab PO 04/20/24 08:59 Not Given DAILY NAIDA Mirtazapine 15 mg 03/23/24 21:00 03/25/24 19:59 Mirtazapine Tab 15 Mg Tab PO 04/22/24 20:59 15 mg HS NAIDA Administration Miscellaneous 1 each 03/25/24 09:00 03/26/24 10:55 Remove Lidoderm Patch N/A 04/24/24 08:59 1 each DAILY NAIDA Administration Ondansetron HCl 4 mg 03/21/24 10:19 03/24/24 17:01 Ondansetron Inj 2 Mg/Ml 2 Ml Vial IV 04/20/24 10:18 4 mg Q6H PRN Administration Nausea And Vomiting Pantoprazole Sodium 40 mg 03/21/24 09:00 03/26/24 11:23 Pantoprazole 40 Mg Tab PO 04/20/24 08:59 40 mg DAILY NAIDA Administration Polyethylene Glycol 17 gm 03/24/24 09:00 03/26/24 10:55 Polyethylene (Miralax) 17 Gm Pack PO 04/23/24 08:59 Not Given DAILY NAIDA Potassium Chloride 20 meq 03/21/24 09:00 03/26/24 10:55 Potassium Chloride Crtab 20 Meq Tabcr PO 04/20/24 08:59 Not Given DAILY NAIDA Rosuvastatin Calcium 10 mg 03/21/24 09:00 03/26/24 10:55 Rosuvastatin Calcium 10 Mg Tab PO 04/20/24 08:59 Not Given DAILY NAIDA Vitamin D 25 mcg 03/21/24 09:00 03/26/24 10:54 Cholecalciferol 25 Mcg (1000 Units) Tab PO 04/20/24 08:59 Not Given DAILY NAIDA
[2024-03-26] MEDS: POT PHOSPHATE MONOBASIC W/ SOD TAB PO SCH (18:05)
[2024-03-26] MEDS: MAGNESIUM CHLORIDE W/CALCIUM 64MG DELAYED REL TAB PO SCH (20:37)
--- NOTE | 2024-03-27 13:53 | Hospitalist Progress Note ---
<Statement entered by Hi Shore, - 03/27/24 14:46> I have seen and examined the patient and have discussed the case with the provider above. I have reviewed the advanced practitioner's documentation, and I agree with, and take responsibility for that plan of care. 10 minutes spent coordinating care Patient evaluated bedside. She continues to complain of generalized abdominal pain and poor appetite Plan of care as outlined below Date of Service March 27, 2024 Assessment & Plan (1) Vascular dementia of acute onset with behavioral disturbance: (2) Acute metabolic encephalopathy: (3) Delirium: (4) Endometrial mass: (5) Chronic nausea: (6) Hyperparathyroidism: (7) Hx pulmonary embolism: (8) PFO (patent foramen ovale): Plan Ms. Echeverria is a 78-year-old female with past medical history significant for mixed hyperlipidemia, history of hypercalcemia, history of hyperparathyroidism, history of multiple thyroid nodules, history of CKD stage III, history of moderate tricuspid regurgitation, diastolic dysfunction, GERD, CKD stage III, j generalized osteoarthritis, glaucoma, history of spinal stenosis, history of PE was brought in by daughter because of confusion on 03/21, work up concerning for progressive vascular dementia. Neurology and psych evaluated. Patient pending placement however, noted to be febrile. UA ordered c/f infection. Culture pending. Acute encephalopathy, likely iso UTI Vascular dementia CT head, CTA head and neck unremarkable Chest x-ray unremarkable UA is unremarkable on admission, however positive 03/25 iso fevers Labs WBC 13 6.9. Continue home statin and aspirin continue supportive care Continue with delirium prevention measures: raising blinds during the day, closing at night, frequent re-orientation, contact with family/friends, explaining procedures/nursing care measures prior to physical contact, correct any hearing and visual impairments Abnormal UA c/f uti Fevers continue CTX culture showing no organisms, will complete 3 days of tx and d/x electrolyte abnormalities started mag supplementation Replace phos continue k supplement History of pulmonary embolism On Eliquis CKD stage III stable cr, Chronic HFpEF EF 55-60% on 03/21 Monitor for volume overload, euvolemic on exam Glaucoma Continue eyedrops Hyperlipidemia Statin Hypertension On lisinopril, held secondary to borderline pressures GERD On Protonix Vaginal spotting Follow-up with PCP/gynecology DVT prophylaxis On Eliquis Disposition Telemetry Full code A total of 46 min was spent coordinating, documenting, and providing care for this patient excluding time spent in the performance of separately billed services. This included personally viewing all current laboratories and imaging studies, medication reconciliation, outpatient chart review, and discussion with specialists. Admission and Anticipated Discharge Date Admission Date: March 21, 2024 Subjective MAJO Pt reports being nauseated and doesn't want to eat her breakfast. She denies f/c/s, chest pain Review of Systems Review of Systems: All systems reviewed & are unremarkable except as noted in HPI & below Physical Exam Physical Exam: Gen: elderly, F, chronically ill appearing, NAD, A&O x3 HEENT: Normocephalic, atraumatic, conjunctivae moist, sclerae anicteric, mucous membranes moist. Lung: Clear to Auscultation bilaterally, no wheezes/rales/rhonchi Heart: tachycardic rate, regular rhythm, no murmurs, rubs, or gallops Abdomen: Soft, NT, ND +BS x 4 Extremities: No edema Skin: Warm, no rash, negative turgor. Results & Data Results & Data Vital Signs (Past 12 Hours) Vital Signs Temp Pulse Resp BP Pulse Ox O2 Del Method 03/27/24 07:51 36.8 C 109 H 16 112/79 97 Room Air Medications Administered Current Inpatient Medications Acetaminophen (Acetaminophen 325 Mg Tab) 650 mg PO Q4H PRN PRN Reason: Pain or Fever Stop: 04/20/24 02:34 Last Admin: 03/27/24 08:25 Dose: 650 mg Apixaban (Apixaban 5 Mg Tablet) 5 mg PO BID [facility] Stop: 04/20/24 08:59 Last Admin: 03/27/24 08:25 Dose: 5 mg Aspirin (Aspirin 81 Mg Ectab) 81 mg PO DAILY NAIDA Stop: 04/20/24 08:59 Last Admin: 03/27/24 08:26 Dose: 81 mg Bisacodyl (Bisacodyl 10 Mg Supp) 10 mg RI DAILY PRN PRN Reason: Constipation Stop: 04/22/24 12:25 Dorzolamide HCl (Dorzolamide Hcl 2% Oph Soln 10 Ml Btl) 1 drops OPB TID [facility] Stop: 04/20/24 08:59 Last Admin: 03/27/24 08:26 Dose: 1 drops Ceftriaxone Sodium (Rocephin) 2,000 mg in 50 mls @ 100 mls/hr IV Q24H NAIDA Stop: 03/30/24 18:59 Last Infusion: 03/26/24 18:44 Dose: Infused Lidocaine (Lidocaine 5% 1 Patch) 1 patch TD HS NAIDA Stop: 04/24/24 20:59 Last Admin: 03/26/24 20:36 Dose: 1 patch Lisinopril (Lisinopril 5 Mg Tab) 5 mg PO DAILY NAIDA Stop: 04/20/24 08:59 Last Admin: 03/26/24 10:54 Dose: Not Given Magnesium Chloride (Magnesium Chloride W/Calcium 64mg Delayed Rel Tab) 64 mg PO BID NAIDA Stop: 04/25/24 20:59 Last Admin: 03/27/24 08:26 Dose: 64 mg Mirtazapine (Mirtazapine Tab 15 Mg Tab) 15 mg PO HS NAIDA Stop: 04/22/24 20:59 Last Admin: 03/26/24 20:37 Dose: 15 mg Miscellaneous (Remove Lidoderm Patch) 1 each N/A DAILY NAIDA Stop: 04/24/24 08:59 Last Admin: 03/27/24 08:34 Dose: 1 each Nitroglycerin (Nitroglycerin Sl 0.4 Mg/Tab Tab) 0.4 mg SL Q5M PRN PRN Reason: Chest Pain Stop: 04/20/24 02:34 Ondansetron HCl (Ondansetron Inj 2 Mg/Ml 2 Ml Vial) 4 mg IV Q6H PRN PRN Reason: Nausea And Vomiting Stop: 04/20/24 10:18 Last Admin: 03/27/24 08:31 Dose: 4 mg Pantoprazole Sodium (Pantoprazole 40 Mg Tab) 40 mg PO DAILY NAIDA Stop: 04/20/24 08:59 Last Admin: 03/27/24 08:26 Dose: 40 mg Polyethylene Glycol (Polyethylene (Miralax) 17 Gm Pack) 17 gm PO DAILY NAIDA Stop: 04/23/24 08:59 Last Admin: 03/27/24 08:39 Dose: Not Given Potassium Chloride (Potassium Chloride Crtab 20 Meq Tabcr) 20 meq PO DAILY NAIDA Stop: 04/20/24 08:59 Last Admin: 03/27/24 08:31 Dose: 20 meq Rosuvastatin Calcium (Rosuvastatin Calcium 10 Mg Tab) 10 mg PO DAILY NAIDA Stop: 04/20/24 08:59 Last Admin: 03/27/24 08:27 Dose: 10 mg Vitamin D (Cholecalciferol 25 Mcg (1000 Units) Tab) 25 mcg PO DAILY NAIDA Stop: 04/20/24 08:59 Last Admin: 03/27/24 08:26 Dose: 25 mcg
[2024-03-28 07:03] LABS: Basophils # (auto) 0.05 K/uL (0.00-0.20); Basophils % (auto) 0.7 %; Eosinophils # (auto) 0.15 K/uL (0.00-0.50); Hematocrit (blood only) 33.9 % (37.0-47.0); Hemoglobin 10.8 g/dl (12.0-16.0); Immature Granulocytes # (auto) 0.06 K/uL (0.01-0.20); Immature Granulocytes % (auto) 0.8 %; Lymphocytes # (auto) 1.44 K/uL (1.20-3.40); Lymphocytes % (auto) 18.8 %; Mean Corpuscular Hemoglobin 27.4 pg (25.0-34.0); Mean Corpuscular Hgb Conc 31.9 g/dL (32.0-36.0); Mean Platelet Volume 10.5 fL (9.4-12.4); Monocytes # (auto) 0.88 K/uL (0.11-0.59); Monocytes % (auto) 11.5 %; Neutrophils # (auto) 5.09 K/uL (1.40-6.50); Neutrophils % (auto) 66.2 %; Platelet Count 245 K/uL (130-400); RDW Standard Deviation 43.5 fL (36.4-46.3); Red Blood Count 3.94 M/uL (4.20-5.40); White Blood Count 7.67 K/ul (4.8-10.8)
[2024-03-28 07:18] LABS: BUN Creatinine Ratio 18.2 (10-20); Calcium 9.7 mg/dl (8.6-10.3); Est GFR (African American) 86.9 ml/min; Potassium 3.7 mmol/L (3.5-5.1)
--- NOTE | 2024-03-28 10:26 | Hospitalist Progress Note ---
<Statement entered by Hi Shore, - 03/28/24 14:52> I have seen and examined the patient and have discussed the case with the provider above. I have reviewed the advanced practitioner's documentation, and I agree with, and take responsibility for that plan of care. 8 minutes spent in care coordination. Patient up and ambulating on her own in the room and in the bathroom. Chronic complaints of back and stomach pain Appetite slightly improved. Anticipate discharge to [facility] when authorized. Plan of care as outlined below Date of Service March 28, 2024 Assessment & Plan (1) Vascular dementia of acute onset with behavioral disturbance: (2) Acute metabolic encephalopathy: (3) Delirium: (4) Endometrial mass: (5) Chronic nausea: (6) Hyperparathyroidism: (7) Hx pulmonary embolism: (8) PFO (patent foramen ovale): Plan Ms. Echeverria is a 78-year-old female with past medical history significant for mixed hyperlipidemia, history of hypercalcemia, history of hyperparathyroidism, history of multiple thyroid nodules, history of CKD stage III, history of moderate tricuspid regurgitation, diastolic dysfunction, GERD, CKD stage III, j generalized osteoarthritis, glaucoma, history of spinal stenosis, history of PE was brought in by daughter because of confusion on 03/21, work up concerning for progressive vascular dementia. Neurology and psych evaluated. Patient pending placement however, noted to be febrile. UA ordered c/f infection. Culture pending. Acute encephalopathy, likely iso UTI Vascular dementia CT head, CTA head and neck unremarkable Chest x-ray unremarkable UA is unremarkable on admission, however positive 03/25 iso fevers Labs WBC 13 6.9. Continue home statin and aspirin continue supportive care Continue with delirium prevention measures: raising blinds during the day, closing at night, frequent re-orientation, contact with family/friends, explaining procedures/nursing care measures prior to physical contact, correct any hearing and visual impairments Abnormal UA c/f uti Fevers continue CTX culture showing no organisms, will complete 3 days of tx on 03/27 electrolyte abnormalities started mag supplementation Replace phos continue k supplement History of pulmonary embolism On Eliquis CKD stage III stable cr Chronic HFpEF EF 55-60% on 03/21 Monitor for volume overload, euvolemic on exam Glaucoma Continue eyedrops Hyperlipidemia Statin Hypertension On lisinopril, held secondary to borderline pressures GERD On Protonix Vaginal spotting Follow-up with PCP/gynecology DVT prophylaxis On [facility], awaiting placement, medically stable Full code A total of 40 min was spent coordinating, documenting, and providing care for this patient excluding time spent in the performance of separately billed services. This included personally viewing all current laboratories and imaging studies, medication reconciliation, outpatient chart review, and discussion with specialists. Admission and Anticipated Discharge Date Admission Date: March 21, 2024 Subjective NAEO She reports having nightmares this morning. She still complains of some nausea. Denies f/c/s, chest pain, sob, n/v/d. Review of Systems Review of Systems: All systems reviewed & are unremarkable except as noted in HPI & below Physical Exam Physical Exam: Gen: elderly, F, chronically ill appearing, NAD, A&O x3 HEENT: Normocephalic, atraumatic, conjunctivae moist, sclerae anicteric, mucous membranes moist. Lung: Clear to Auscultation bilaterally, no wheezes/rales/rhonchi Heart: tachycardic rate, regular rhythm, no murmurs, rubs, or gallops Abdomen: Soft, NT, ND +BS x 4 Extremities: No edema Skin: Warm, no rash, negative turgor. Results & Data Results & Data Vital Signs (Past 12 Hours) Vital Signs Temp Pulse Resp BP Pulse Ox O2 Del Method 03/28/24 07:41 37.1 C 93 H 16 109/74 96 Room Air Medications Administered Current Inpatient Medications Acetaminophen (Acetaminophen 325 Mg Tab) 650 mg PO Q4H PRN PRN Reason: Pain or Fever Stop: 04/20/24 02:34 Last Admin: 03/28/24 09:47 Dose: 650 mg Apixaban (Apixaban 5 Mg Tablet) 5 mg PO BID [facility] Stop: 04/20/24 08:59 Last Admin: 03/28/24 08:46 Dose: 5 mg Aspirin (Aspirin 81 Mg Ectab) 81 mg PO DAILY NAIDA Stop: 04/20/24 08:59 Last Admin: 03/28/24 08:47 Dose: 81 mg Bisacodyl (Bisacodyl 10 Mg Supp) 10 mg [place] DAILY PRN PRN Reason: Constipation Stop: 04/22/24 12:25 Dorzolamide HCl (Dorzolamide Hcl 2% Oph Soln 10 Ml Btl) 1 drops OPB TID [facility] Stop: 04/20/24 08:59 Last Admin: 03/28/24 08:47 Dose: 1 drops Lidocaine (Lidocaine 5% 1 Patch) 1 patch TD HS NAIDA Stop: 04/24/24 20:59 Last Admin: 03/27/24 20:13 Dose: 1 patch Lisinopril (Lisinopril 5 Mg Tab) 5 mg PO DAILY NAIDA Stop: 04/20/24 08:59 Last Admin: 03/26/24 10:54 Dose: Not Given Magnesium Chloride (Magnesium Chloride W/Calcium 64mg Delayed Rel Tab) 64 mg PO BID NAIDA Stop: 04/25/24 20:59 Last Admin: 03/28/24 08:47 Dose: 64 mg Mirtazapine (Mirtazapine Tab 15 Mg Tab) 15 mg PO HS NAIDA Stop: 04/22/24 20:59 Last Admin: 03/27/24 20:13 Dose: 15 mg Miscellaneous (Remove Lidoderm Patch) 1 each N/A DAILY NAIDA Stop: 04/24/24 08:59 Last Admin: 03/28/24 08:49 Dose: 1 each Nitroglycerin (Nitroglycerin Sl 0.4 Mg/Tab Tab) 0.4 mg SL Q5M PRN PRN Reason: Chest Pain Stop: 04/20/24 02:34 Ondansetron HCl (Ondansetron Inj 2 Mg/Ml 2 Ml Vial) 4 mg IV Q6H PRN PRN Reason: Nausea And Vomiting Stop: 04/20/24 10:18 Last Admin: 03/28/24 05:37 Dose: 4 mg Pantoprazole Sodium (Pantoprazole 40 Mg Tab) 40 mg PO DAILY [facility] Stop: 04/20/24 08:59 Last Admin: 03/28/24 08:48 Dose: 40 mg Polyethylene Glycol (Polyethylene (Miralax) 17 Gm Pack) 17 gm PO DAILY [facility] Stop: 04/23/24 08:59 Last Admin: 03/28/24 08:48 Dose: Not Given Potassium Chloride (Potassium Chloride Crtab 20 Meq Tabcr) 20 meq PO DAILY [facility] Stop: 04/20/24 08:59 Last Admin: 03/28/24 08:48 Dose: 20 meq Rosuvastatin Calcium (Rosuvastatin Calcium 10 Mg Tab) 10 mg PO DAILY [facility] Stop: 04/20/24 08:59 Last Admin: 03/28/24 08:48 Dose: 10 mg Vitamin D (Cholecalciferol 25 Mcg (1000 Units) Tab) 25 mcg PO DAILY [facility]IDA Stop: 04/20/24 08:59 Last Admin: 03/28/24 08:47 Dose: 25 mcg
[2024-03-28] MEDS: KETOROLAC TROMETHAMINE 15 MG/ML VIAL IV ONE (20:07)
--- NOTE | 2024-03-28 23:39 | CT Scan Report ---
Exam(s): CT ABDOMEN + PELVIS Without Contrast EXAM: CT Abdomen and Pelvis Without Intravenous Contrast CLINICAL HISTORY: back pain, eliquis. TECHNIQUE: Axial computed tomography images of the abdomen and pelvis without intravenous contrast. CTDI is 20.26 mGy and DLP is 915.2 mGy-cm. Automated exposure control was utilized for the study. A dose lowering technique was utilized adhering to the principles of ALARA. COMPARISON: 03/21/2024. FINDINGS: Lung bases: Bibasilar atelectasis. ABDOMEN: Liver: Unremarkable. Gallbladder and bile ducts: Unremarkable. No calcified stones. No ductal dilation. Pancreas: Unremarkable. No ductal dilation. Spleen: Unremarkable. No splenomegaly. Adrenals: Unremarkable. No mass. Kidneys and ureters: No obstructive uropathy. Coarse nonobstructing calculus upper pole the right kidney. No obstructing renal or ureteral calculi. No hydronephrosis or hydroureter. Stomach and bowel: Residual oral contrast material within the colon. No obstruction or ileus. Left and sigmoid colon diverticulosis without evidence for diverticulitis. PELVIS: Appendix: No findings to suggest acute appendicitis. Bladder: Unremarkable. No stones. Reproductive: Unchanged enlarged uterus. Ovaries not well characterized. ABDOMEN and PELVIS: Intraperitoneal space: No free air. No free fluid. Bones/joints: No acute fracture. Degenerative changes of the spine. Soft tissues: Ventral pelvic hernia repair. No recurrent hernia. Vasculature: Atherosclerotic vascular calcifications. No abdominal aortic aneurysm. Lymph nodes: Redemonstrated enlarged nonspecific retroperitoneal lymph nodes surrounding the aorta and IVC in the abdomen and upper pelvis extending to the left pelvic sidewall. IMPRESSION: Nonobstructing right renal calculi. No obstructive uropathy. No significant change from 03/21/2024. Electronically signed by: Jong Merrill M.D. 03/28/24 23:38 PM
[2024-03-29 08:13] VITALS: BP 111/78; PULSE 107; RESP 16; TEMP 99.5; O2SAT 96
--- NOTE | 2024-03-29 13:59 | Discharge Summary ---
Date of Service March 29, 2024 Admission HPI Per Admitting Provider 78-year-old female with past medical history significant for mixed hyperlipidemia, history of hypercalcemia, history of hyperparathyroidism, history of multiple thyroid nodules, history of CKD stage III, history of moderate tricuspid regurgitation, diastolic dysfunction, GERD, CKD stage III, j generalized osteoarthritis, glaucoma, history of spinal stenosis, history of PE was brought in by daughter because of confusion. Daughter says last Wednesday daughter was out of town and she called her mother but she did not shrimp picker the phone. Generally mother calls back immediately but she was not calling. She almost thought of calling septic tank setter for welfare check but her boyfriend went and checked the patient. Seems her phone was unplugged and patient seemed to somewhat confused. And today daughter thought patient was not eating much and seems patient told her there was no food in the house ,though there is. Daughter took her to restaurant but patient could not eat anything. And when she is talking she was not making sense. And her ambulation was very sluggish. And daughter decided to bring her to the hospital. Patient was a stroke alert. But because of symptoms going on for some time she was not thought to be a TNK candidate. In the ER patient initially oriented to name and place. But currently could tell her name. Knows that she in the hospital. Knows current month and year. Could tell her date of . But she is repeating herself. Her main complaints are about her bowel and bladder symptoms. Says she is not moving her bowels normally. She says has pain while moving her bowels. She says hs pain with bladder movements. Says she has some vision problems from glaucoma. No runny nose. As per daughter patient is spitting a lot and attributes to her dentures.Denies any chest pain. No shortness of breath. Afebrile. No abdominal pain. Patient recently found to have vaginal spotting supposed to see her doctor for it. Hemodynamics are okay currently. Past medical history. As mentioned above Past surgical history. . Colonoscopy. Parathyroidectomy. Puncture drainage of breast cyst. Tonsillectomy. Social history. No smoking. No alcohol use. No drug use. Family history. Mother had diabetes. Heart disorder. Father had cardiomyopathy. Admission Exam Per Admitting Provider General- Not in acute distress Head- atraumatic Eyes- PERRL, ENT- oropharynx clear Neck- supple, no JVD. Lungs- clear to auscultation no wheezing or crackles. Heart- regular rate and rhythm; no murmur, no gallop. Abdomen- normal bowel sounds, soft, nontender, no distension. Extremities- no pretibial edema, no erythema seen Neuro- alert, oriented x 3; PERRL, no facial palsy; no dysarthria; motor 3-5/5 bilaterally; coordination of movements ok. No pronator drift. sensations intact. Principal Diagnosis Acute Metabolic Encephalopathy 2/2 UTI Discharge Exam General: Chronically ill-appearing, vitals as above, NAD, laying down in bed, pleasant, A+O during conversation with me this morning. HEENT: Normocephalic, atraumatic. PERRL, conjunctivae normal, anicteric sclerae. External ear and nose normal, oropharynx normal. Respiratory: Normal respiratory effort, lungs clear to auscultation, no wheeze, rales, rhonchi. No accessory muscle use. Cardiovascular: Tachycardic rate, regular rhythm, no murmur, normal peripheral pulses, no BLE edema. Vessels: No JVD. Abdomen/GI: Normal bowel sounds, soft, nontender, no hepatosplenomegaly. Extremities/Musculoskeletal: No cyanosis or clubbing, able to actively move all extremities. Neurologic: EOMI, no focal deficits, CN's II-XI not formally tested but appear grossly intact bilaterally. Skin: No rashes, normal color, warm/dry. Discharge Data Allergies Allergy/AdvReac Type Severity Reaction Status Date / Time atorvastatin AdvReac stomach Verified 02/08/24 07:16 upset. brand name ok Consultations 03/20/24 23:48 ED Decision to Admit Stat 03/21/24 08:00 Consult Neurology Routine Ordered Studies 03/20/24 22:07 CT angio head w con Stat CT angio neck with con Stat CT head/brain wo con Stat 03/21/24 02:35 MR brain wo/w con Routine 03/21/24 15:18 CT Abd and Pelvis [CT abd pelvis oral con only] Routine 03/28/24 20:00 CT Abd and Pelvis [CT abd pelvis wo con] Stat Hospital Course (1) Acute metabolic encephalopathy: (2) Acute UTI (urinary tract infection): Carmelina Echeverria is a 78y/o F with PMHx significant for mixed hyperlipidemia, hypercalcemia, hyperparathyroidism, multiple thyroid nodules, CKD stage III, moderate tricuspid regurgitation, diastolic dysfunction, GERD, generalized osteoarthritis, glaucoma, spinal stenosis, history of PE and other problems listed below who was admitted on 03/21/24 due to confusion. Acute Metabolic Encephalopathy 2/2 UTI - Resolved: Head CT, head CTA and neck CTA were all unremarkable on admission. Brain MRI was negative. UA was not infected on admission and the 1st urine cx was negative. Patient was seen and evaluated by neurology on 03/21 - low suspicion for meningitis/encephalitis at time of admission. However, repeat UA on 03/25 was infected ISO fevers. She completed a 3-day course of IV Rocephin and her 2nd urine cx was negative. Patient's mentation status back at baseline at time of discharge. She is scheduled to f/u with Dr. Eliezer Etienne on 04/03/24 @ 2PM. Vascular Dementia: Patient was seen and evaluated by psychiatry. Per Dr. Jolley --> "Diagnostically no evidence at this time for a primary psychiatric condition leading to abrupt mental status change. Differential certainly includes hypoactive delirium vs progressive dementia (prion and FTD tend to be most rapid, but neurology would be best suited to speak to this, defer to their expertise) vs sudden step-ramirez worsening in function due to vascular dementia." Electrolyte Abnormalities: Patient started on magnesium supplement during her admission - prescription sent. 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 Chronic HFpEF, Small PFO: Echo done 03/21/24 showed the following --> mild concentric LVH, LVEF=55-60% and a small PFO with mild R to L interatrial shunt (changed from previous echo done 08/30/23). No interventional treatment indicated at this time since the PFO is small and she is currently on chronic anticoagulation therapy with Eliquis. CKD Stage III: Baseline Cr ~1.3 per chart review, her Cr remained stable throughout her admission. Vaginal Spotting: Patient to be scheduled with [facility] Gynecology/Obstetrics by her PCP. HTN: Lisinopril held during her admission and at time of discharge due to borderline pressures. Patient to continue to hold off on taking her lisinopril until her PCP f/u appt on 04/03/[address] Etienne. Other Chronic Medical Conditions: GERD, HLD, glaucoma --> Can continue home meds for these specific conditions at time of discharge. PCP: Chasity Mathew, DO Disposition: Patient is being discharged to [facility] in stable condition. Patient seen in collaboration with Dr. Dumont. Please see addendum. I spent a total of 55 minutes coordinating, documenting, and providing care for this patient excluding time spent in the performance of separately billed services. This included personally reviewing all current laboratories and imaging studies, medical reconciliation, outpatient chart review and discussion with specialists. This chart was completed in part utilizing Speech Voice Recognition Software. Grammatical errors, random word insertions, pronoun errors, and incomplete sentences are an occasional consequence of this system due to software limitations, ambient noise, and hardware issues. Any formal questions or concerns about the content, text, or information contained within the body of this dictation should be directly addressed to the provider for clarification. Home Health Attestation I certify that this patient is under my care and that I, or a physicians retail event assistant working with me, had a face to-face encounter that meets the home health [id number] encounter requirements with this patient. The encounter with the patient was in whole, or in part, for the following medical condition, which is the primary reason for home health care (list medical condition): I certify that, based on my findings, the following services are medically necessary home health services: My clinical findings support the need for the above services because: Further, I certify that my clinical findings support that this patient is homebound (i.e. absences from home require considerable and taxing effort and are for medical reasons or muslim services or infrequently or of short duration when for other reasons) because: Certification for Home Health Services: Based on the above findings, I certify that this patient is confined to the home and needs intermittent m[facility]p care, physical therapy and/or speech therapy or continues to need occupational therapy. The patient is under my care, and I have initiated the establishment of the plan of care. This patient will be followed by a physician who will periodically review the plan of care. Total Time Total Time Spent Total Time Spent (In Minutes): 55 Discharge Plan Discharge Items Patient Disposition: Transfer Shelter Fac Reason For Visit: CONFUSION Discharge Diagnosis: Acute Metabolic Encephalopathy 2/2 UTI Condition on Discharge: Good Activity: Resume your previous activity Non-emergency contact: Primary Care Provider Call non-emergency contact if: you have any medication questions, your symptoms worsen and you have a fever Follow-up/Referrals: Eliezer Etienne M.D. [Outside Practitioners] - 04/03/24 2:00 pm (Date and Time: 04/03/24 @ 2:00PM. Provider: Eliezer Etienne MD) Diet: Heart Healthy Addtl Attending Provider Instructions: Julia, You were admitted to the hospital due to altered mental status and found to have an acute urinary tract infection (UTI). We successfully treated your UTI with a course of IV antibiotics and your urine culture did not grow any bacteria. You are scheduled to see Dr. Eliezer Etienne at [facility] on 04/03/24 @ 2:00PM. Please attend this appointment as scheduled. You reported experiencing vaginal spotting during your hospitalization. An appointment with [facility] Gynecology/Obstetrics can be arranged at your hospital discharge follow-up appointment with Dr. Etienne next week. We did HOLD your LISINOPRIL while you were admitted due to your blood pressure being on the lower side. Please DO NOT RESUME this medication until you are seen and evaluated by Dr. Eteinne next week. We started you on a magnesium supplement and daily aspirin during your hospitalization. Please continue to take these medications as prescribed - both prescriptions were sent to your pharmacy. You may continue taking all of your other medications as previously prescribed. You are being discharged to [facility] for further rehabilitation services. MEDICATION CHANGES: * Please STOP taking your LISINOPRIL 5mg DAILY until seen by Dr. Etienne on 04/03/24! SEEK MEDICAL ATTENTION IF YOU HAVE: * temperature above 101F * chest pain or trouble breathing * abdominal pain, nausea, vomiting * diarrhea, dark stools or bloody stools * any unanswered questions or concerns Call 911 if symptoms are severe. Please take good care of yourself. It has been a pleasure taking care of you. If you have any questions regarding your recent hospitalization please contact [facility] and request [facility] @ [phone]. Pending Studies at Discharge: No Stand-Alone Forms: My [facility] Skilled Items Patient informed of condition?: Yes DNR: No Discharge Level of Care: Skilled Communicable Disease: No Discharge Prognosis: Stable Lines: None Urinary Catheter: No Medications and DC Order Prescriptions: New magnesium chloride 64 mg tablet,delayed release (DR/EC) 64 mg PO BID Qty: 60 0RF aspirin 81 mg Tablet,Delayed Release (Dr/Ec) 81 mg PO DAILY Qty: 30 0RF Continued potassium chloride 10 mEq tablet extended release 20 meq PO DAILY pantoprazole 40 mg tablet,delayed release (DR/EC) 40 mg PO DAILY dorzolamide 2 % drops 1 drp OPB TID rosuvastatin 10 mg tablet 10 mg PO DAILY cholecalciferol (vitamin D3) 25 mcg (1,000 unit) tablet 25 mcg PO DAILY brimonidine-timolol 0.2-0.5 % drops 1 drp OPB BID Eliquis 5 mg tablet 5 mg PO BID Held lisinopril 5 mg tablet 5 mg PO DAILY Hold Instructions: Please do NOT take this medication until you see Dr. Etienne on 04/03/2024. Discharge Orders: Discharge Order (Routine); Ordered 03/29/24 Ordered By: Niesha Corona/Other Patient Handouts: Prediabetes, 5 Steps for Eating Healthier, Delirium and Dementia Admission Data Admit Date/Time: 03/21/24 01:20 Attending Provider: Charito Dumont Admit Provider: Clement Mccarthy Primary Care Provider: Chasity Mathew Other Providers: Clement Mccarthy; Stefany Chamorro; Enmanuel Beckford Kathleen; Pipe Perez; Derick Molina; Vineet Khan; Alex Peralta; Melania Tsang; Thanh Walker; Juanjose Yeager; Destini Junior; Javy Martínez; Yvette Polk; Tere Saleem; Alex Grossman; [facility]; [facility]; [facility], Other Interventions: Discharge Summary Assessment (RN) Last Done: 03/29/24 13:57 Supervising Physician Co-Signing Physician Notes I have seen and discussed the case with the collaborating advanced practitioner. I agree with the above H&P. I have reviewed and confirmed the patients medical history, the findings on physical examination, and the patients diagnosis and treatment plan with Denise KNOTT and agree with the information documented. In short, Ms. Echeverria is a 78-year-old female with past medical history significant for mixed hyperlipidemia, history of hypercalcemia, history of hyperparathyroidism, history of multiple thyroid nodules, history of CKD stage III, history of moderate tricuspid regurgitation, diastolic dysfunction, GERD, CKD stage III, j generalized osteoarthritis, glaucoma, history of spinal stenosis, history of PE was brought in by daughter because of confusion on 03/21, work up concerning for progressive vascular dementia. Neurology and psych evaluated, Course prolonged awaiting placement, On day of discharge, patient was alert to self and place. patient without acute concerns. I spent a total of 15 minutes coordinating, documenting, and providing care for this patient excluding time spent in the performance of separately billed services. All of the aforementioned completed outside of collaborating with the assigned advanced practitioner for a full treatment plan. I have reviewed the advanced practitioner's documentation, and I agree with, and take responsibility for the plan of care
== END 2024-03-29 14:01 | DRG 689 ==
LOC: ED 21:54 → EDINP 03-21 01:20 → SUATTDRO 03-21 01:20 → 2S 03-21 02:36 → 3W 03-21 21:10

== ENCOUNTER 2024-05-09 13:47 | Inpatient (IN) ==
--- NOTE | 2024-05-09 14:09 | Emergency Department Note ---
Impression & Plan Leukocytosis, SIRS (systemic inflammatory response syndrome), Elevated lactic acid level, Abdominal pain, Anemia, Metastatic cancer ED Provider Note NAME: ALLEN COLLINS AGE: 78 SEX: F : 1945 ARRIVES VIA: Walk-In INFORMANT: Patient ED PROVIDER(S): Portillo Bauer DO CHIEF COMPLAINT: abdominal pain HPI: Patient is a 78-year-old female with a past medical history of endometrial mass, vascular dementia, delirium, encephalopathy, CKD, hypertension, hyperlipidemia who presents to the ER for bright red blood vaginally. She notes this has been going on for the past several years. She admits to belly pain which been present for the past year and has been unchanged. Denies any headache or change in vision. No chest pain or shortness of breath. No nausea, vomiting, or diarrhea. No dysuria, urgency, or frequency. No other exacerbating or remitting factors. ADDITIONAL HISTORY OBTAINED: Per HPI Chronic Medical/Social Conditions Affecting Care: Per HPI PAST MEDICAL HISTORY:See Below PAST SURGICAL HISTORY:See Below FAMILY HISTORY:See Below SOCIAL HISTORY:See Below HOME MEDICATIONS:See Below ALLERGIES:See Below VITALS:See Below PHYSICAL EXAMINATION: GENERAL: Sitting up in bed, alert, well appearing, well nourished, no distress, non-toxic EYE EXAM: normal conjunctiva. PERRL and EOM's grossly intact. OROPHARYNX: no exudate, no erythema, lips, buccal mucosa, and tongue normal and mucous membranes are moist NECK: supple, no nuchal rigidity, no adenopathy, non-tender LUNGS: Clear to auscultation. Normal chest wall mechanics HEART: no murmurs, S1 normal and S2 normal ABDOMEN: abdomen soft, non-tender, normo-active bowel sounds, no masses, no rebound or guarding. : Normal external genitalia. No vaginal bleeding. Rectal: Heme-negative brown stool UPPER EXTREMITIES: upper extremities are grossly normal. LOWER EXTREMITIES: No pitting edema. NEURO EXAM: Normal sensorium, cranial nerves II-XII grossly intact, normal speech, no gross weakness of arms, no gross weakness of legs. MEDICAL DECISION MAKING: Patient is a 78-year-old female who presents to the ER with a past medical history of vascular dementia and endometrial mass for vaginal bleeding. Patient was found to be tachycardic. IV was established and blood work was obtained. Labs show leukocytosis of 18,000. Anemia at 7.8 which consistent with previous. Patient was typed and crossed for 1 unit but was held. BMP with an elevated lactate at 3. Lipase was normal. Pro-Cedric 0.49. UA was negative. CT abdomen pelvis shows likely metastatic disease. Chest x-ray showed no acute pathology. Ultrasound the pelvis confirmed pelvic/endometrial mass. Patient was given IV fluids and antibiotics. Updated bedside and discussed with the daughter who is present at bedside. She notes that the vaginal bleeding has been waxing waning and due to abnormal blood work is the reason that they got sent in from the PCP. They were agreeable with staying overnight. Discussed the case with the hospitalist Fiona for further evaluation management treatment. Consults/Care Managements Discussions: Per MDM Triage Nursing notes reviewed. Limited review of prior medical records performed Vital Signs: reviewed and remarkable for no significant abnormalities Differential diagnosis: Differential diagnoses includes but is not limited to gastritis, peptic ulcer disease, GERD, gallbladder disease, pancreatitis, small bowel obstruction, appendicitis, diverticulitis, hernia, urinary tract infection, torsion, perforation, trauma, infectious. ER treatment provided: See below Diagnostics interpreted by me include EKG and cardiac monitoring as listed below: -Cardiac Monitoring: An order was placed for continuous cardiac monitoring. The monitor shows a rate of 101 with sinus rhythm. -ECG: none -Laboratory studies:Interpreted by me as stated above in MDM and shown below. 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 PFO (patent foramen ovale) Chronic nausea Endometrial mass Vascular dementia of acute onset with behavioral disturbance Delirium Acute metabolic encephalopathy Altered mental status, unspecified (Acute) Hypokalemia DVT (deep venous thrombosis) CKD (chronic kidney disease), stage III GERD (gastroesophageal reflux disease) HLD (hyperlipidemia) HTN (hypertension) Parathyroid adenoma (Acute) Bilateral pulmonary embolism (Acute) Thyroid disease (Acute) Vitamin D deficiency (Chronic) Hypercalcemia (Chronic) Hyperparathyroidism (Chronic) Medical History Hx-TIA (transient ischemic attack) many years ago, occurred when walking to the bus for work, taken to hospital>no residual effects "reason for aspirin" per pt. 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 Glaucoma Chronic kidney disease, stage III (moderate) Hx pulmonary embolism 2020, bilat., currently on eliquis Hx of deep venous thrombosis pt unsure of any details of this, "just knows she had this" Hypertension Hyperlipidemia GERD (gastroesophageal reflux disease) Surgical History Hx of right cataract extraction Hx of section x2, w/tubal ligation on last one Hx of appendectomy History of esophagogastroduodenoscopy (EGD) Hx of colonoscopy [place] teeth extracted Hx of tonsillectomy Family History Other Diabetes Social History Smoking Status: Never smoker Second Hand Exposure: No; Do You Dip or Chew Tobacco: No; Preferred Language: Belarusian Communication Ability: Effective Residential Mental Health Worker Required: No Beliefs That Will Affect Care: None marital status: Current Living Situation: Alone Current Living Situation Comment: lives in apt. building Feels Safe at Home: Yes Assistive Devices: Cane, Raised Toilet Seat and Walker Allergies Allergies Allergy/AdvReac Type Severity Reaction Status Date / Time atorvastatin AdvReac stomach Verified 02/08/24 07:16 upset. brand name ok Home Meds Home Medications Medication Instructions Recorded Confirmed apixaban 5 mg tablet (Eliquis) 5 mg PO BID 03/21/24 05/09/24 brimonidine 0.2 %-timolol 0.5 % 1 drp OPB BID 03/21/24 05/09/24 eye drops cholecalciferol (vitamin D3) 25 25 mcg PO DAILY 03/21/24 05/09/24 mcg (1,000 unit) tablet dorzolamide 2 % eye drops 1 drp OPB TID 03/21/24 05/09/24 lisinopril 5 mg tablet 5 mg PO DAILY 03/21/24 05/09/24 pantoprazole 40 mg tablet,delayed 40 mg PO DAILY 03/21/24 05/09/24 release potassium chloride 10 mEq 20 meq PO DAILY 03/21/24 05/09/24 tablet,extended release rosuvastatin 10 mg tablet 10 mg PO DAILY 03/21/24 05/09/24 acetazolamide 500 mg 500 mg PO BID 05/09/24 05/09/24 capsule,extended release mirtazapine 7.5 mg tablet 7.5 mg PO HS 05/09/24 05/09/24 Previous Rx's Medication Instructions Recorded aspirin 81 mg tablet,delayed 81 mg PO DAILY #30 tabs 03/29/24 release magnesium chloride 64 mg 64 mg PO BID #60 tabs 03/29/24 (magnesium chloride) tablet,delayed release Results & Data (ED) Vital Signs Vital Signs - 24 hr 05/09/24 13:49 05/09/24 14:29 05/09/24 14:29 Temperature 36.8 C Temperature Source Temporal Artery Scan Pulse Rate 90 120 H 122 H Pulse Rate [Apical] Pulse Rate from SpO2 Sensor Pulse Rhythm Regular Pulse Strength Normal Pulse Strength [Apical] Respiratory Rate 20 18 Respiratory Effort / Characteristics Non-Labored Spontaneous Respiratory Depth Normal Respiratory Pattern Blood Pressure 104/74 Blood Pressure [Left Arm] Blood Pressure Mean 84 Blood Pressure Mean [Left Arm] Blood Pressure Position Sitting Blood Pressure Position [Left Arm] Pulse Oximetry 98 99 Oxygen Delivery Method Room Air Room Air Sepsis Recent Fever Within 48 Hours No Sepsis New/Unexplained Change in Mental Status N/A Sepsis Action Taken by Nursing No Action Required 05/09/24 14:35 05/09/24 15:32 05/09/24 16:11 Temperature Temperature Source Pulse Rate 108 H 115 H Pulse Rate [Apical] 119 H Pulse Rate from SpO2 Sensor 109 H 115 H Pulse Rhythm Pulse Strength Pulse Strength [Apical] Normal Respiratory Rate 16 22 22 Respiratory Effort / Characteristics Non-Labored Spontaneous Respiratory Depth Normal Respiratory Pattern Regular Blood Pressure Blood Pressure [Left Arm] 111/87 Blood Pressure Mean Blood Pressure Mean [Left Arm] 95 Blood Pressure Position Blood Pressure Position [Left Arm] Sitting Pulse Oximetry 98 99 100 Oxygen Delivery Method Room Air Sepsis Recent Fever Within 48 Hours Sepsis New/Unexplained Change in Mental Status Sepsis Action Taken by Nursing 05/09/24 16:32 05/09/24 17:00 Temperature Temperature Source Pulse Rate 113 H 113 H Pulse Rate [Apical] Pulse Rate from SpO2 Sensor 114 H 113 H Pulse Rhythm Pulse Strength Pulse Strength [Apical] Respiratory Rate 22 15 Respiratory Effort / Characteristics Respiratory Depth Respiratory Pattern Blood Pressure Blood Pressure [Left Arm] Blood Pressure Mean Blood Pressure Mean [Left Arm] Blood Pressure Position Blood Pressure Position [Left Arm] Pulse Oximetry 100 97 Oxygen Delivery Method Sepsis Recent Fever Within 48 Hours Sepsis New/Unexplained Change in Mental Status Sepsis Action Taken by Nursing Laboratory Data 05/09/24 14:25 05/09/24 14:25 Lab Results 05/09/24 05/09/24 Range/Units 14:25 16:44 WBC 18.18 H (4.8-10.8) K/ul RBC 2.91 L (4.20-5.40) M/uL Hgb 7.8 L (12.0-16.0) g/dl Hct 24.6 L (37.0-47.0) % MCV 84.5 (80.0-100.0) fL MCH 26.8 (25.0-34.0) pg MCHC 31.7 L (32.0-36.0) g/dL RDW Std Deviation 52.8 H (36.4-46.3) fL RDW Coeff of Oscar 17.2 H (11.5-14.5) % Plt Count 360 (130-400) K/uL MPV 10.7 (9.4-12.4) fL Immature Gran % (Auto) 1.2 % Neut % (Auto) 80.3 % Lymph % (Auto) 10.5 % [place] % (Auto) 7.8 % Eos % (Auto) 0.0 % Baso % (Auto) 0.2 % Neut # (Auto) 14.60 H (1.40-6.50) K/uL Lymph # (Auto) 1.91 (1.20-3.40) K/uL [place] # (Auto) 1.42 H (0.11-0.59) K/uL Eos # (Auto) 0.00 (0.00-0.50) K/uL Baso # (Auto) 0.03 (0.00-0.20) K/uL Immature Gran # (Auto) 0.22 H (0.01-0.20) K/uL Absolute Nucleated RBC 0.04 (0.00-0.12) K/uL Nucleated RBC % (auto) 0.2 % Polychromasia 2+ Ovalocytes 1+ Echinocytes 1+ Sodium 134 L (136-145) mmol/L Potassium 4.2 (3.5-5.1) mmol/L Chloride 103 (98-107) mmol/L Carbon Dioxide 22 (21-32) mmol/L Anion Gap 9 (3-11) BUN 22 (6-23) mg/dl Creatinine 0.98 (0.6-1.2) mg/dl Est Cr Clr Drug Dosing Not Reportable eGFR 59.82 BUN/Creatinine Ratio 22.4 H (10-20) Glucose 140 H (70-99(Fasting)) mg/dl Lactate 3.2 H* (0.4-2.0) mmol/L Calcium 10.5 H (8.6-10.3) mg/dl Total Bilirubin 0.6 (0.2-1.0) mg/dl AST 33 (13-39) U/L ALT 7 (7-52) U/L Alkaline Phosphatase 68 (34-104) U/L Total Protein 7.2 (6.0-8.3) gm/dl Albumin 3.1 L (3.4-5.0) gm/dl Globulin 4.1 H (2.5-4.0) gm/dl Albumin/Globulin Ratio 0.8 L (0.9-2) Lipase 7 L (11-82) U/L Procalcitonin 0.49 (0-0.5) ng/ml Blood Type A Positive Antibody Screen NEGATIVE Crossmatch See Detail Administered Medications Discontinued Medications Piperacillin Sod/Tazobactam Sod (Zosyn) 4.5 gm in 100 mls @ 200 mls/hr IV NOW ONE; Protocol Stop: 05/09/24 17:04 Last Infusion: 05/09/24 18:17 Dose: Infused Documented By: Admin: 05/09/24 17:10 Dose: 200 mls/hr Documented By: TAMIA Sodium Chloride (Nss) 1,000 mls @ 999 mls/hr IV .Q1H1M ONE Stop: 05/09/24 18:11 Last Admin: 05/09/24 17:45 Dose: 999 mls/hr Documented By: TAMIA Ioversol (Optiray 320 100ml) 93 ml IV ONCE ONE Stop: 05/09/24 15:19 Last Admin: 05/09/24 15:18 Dose: 93 ml Documented By: JULY Morphine Sulfate (Morphine Sulfate 4 Mg/Ml 1 Ml Carp\\Vial) 4 mg IV NOW STA Stop: 05/09/24 16:35 Last Admin: 05/09/24 16:42 Dose: 4 mg Documented By: TAMIA Imaging Data Radiologist's Impression: Abdomen/Pelvis CT 05/09/24 14:07 CT OF THE ABDOMEN AND PELVIS WITH CONTRAST CLINICAL HISTORY: Abdominal pain. COMPARISON STUDY: CT of the abdomen and pelvis March 28, 2024. TECHNIQUE: Following IV administration of 93 mL of Optiray, axial images of the abdomen and pelvis were obtained from the lung bases to the proximal femurs. Images were reviewed in the axial, sagittal, and coronal planes. IV contrast was administered without complication. Automated exposure control was utilized for the study. A dose lowering technique was utilized adhering to the principles of ALARA. CT DOSE: 702.18 mGy.cm FINDINGS: No pneumatosis, free air or portal venous gas is present. Several hypodense hepatic lesions favor cysts. There is no biliary or pancreatic ductal dilatation. Spleen, adrenal glands, left kidney and pancreas are unremarkable. A few suspected renal cysts are present. There is no hydronephrosis. 9 mm right renal calculus is noted. There are no ureteral calculi. There is no hydronephrosis. There is no evidence for a bowel obstruction. There is colonic diverticulosis without evidence for acute diverticulitis. The uterus is markedly enlarged and heterogeneous. The endometrium is markedly distended and contains enhancing material. Conglomerate parauterine enhancing tissue extends into the adnexa. In addition, there is extensive abdominal and pelvic lymphadenopathy. Index right retrocrural lymph node on image 86 of 357 measures 1.9 x 1.7 cm. Retroperitoneal lymphadenopathy encases the abdominal aorta and IVC. Index conglomerate left para-aortic brianne mass on image 154 measures 5.8 x 4.7 cm. Index left pelvic sidewall lymph node on image 241 measures 3.7 x 2.4 cm. A right pelvic sidewall lymph node on image 233 measures 2.7 x 2.5 cm. This lymphadenopathy has progressed since prior CT. Multiple small right retroperitoneal nodules measure up to 6 mm. Multiple suspected small omental/peritoneal implants measure up to 9 mm. IMPRESSION: 1. Enlarged uterus with markedly thickened, heterogeneous endometrium. Conglomerate parauterine enhancing tissue which extends into the adnexa. The findings are neoplastic and favor endometrial carcinoma. Gynecologic consultation is recommended. 2. Extensive retroperitoneal/retrocrural and pelvic lymphadenopathy consistent with brianne metastases. Suspected small omental/peritoneal implants and several small right retroperitoneal implants. 3. No evidence for a bowel obstruction. 4. 9 mm right renal calculus. No ureteral calculi. No hydronephrosis. ACT 112: Positive. There are findings on this exam that require communication between the performing entity and the patient following Patient Test Result Information Act ([place] Act 112) guidelines. Electronically signed by: Scot Bateman M.D. 05/09/2024 3:54 PM Pelvis Ultrasound 05/09/24 14:44 US pelvic complete HISTORY: 78 years-old Female vaginal bleeding acute vaginal bleeding with known endometrial lesion COMPARISON: CT of same day TECHNIQUE: Multiple real-time and static images of the deep pelvic structures were obtained transabdominally assessing grayscale appearance, color and spectral flow FINDINGS: Limited exam secondary to patient pain and discomfort. The uterus measures 14.1 x 7.6 x 12.3 cm and is heterogeneous with numerous uterine masses. The largest mass is within the right uterus measuring 6 cm. Endometrium measures approximately 4 cm and demonstrates internal flow. Ovaries are not diagnostically visualized. No significant free pelvic fluid. The adnexal/parauterine lesions are again noted, better seen on the CT study. IMPRESSION: 1. Limited exam as above. 2. Heterogeneous enlarged uterus with numerous masses including a large endometrial mass suggestive of neoplasm. Please refer to the CT abdomen and pelvis of same day for additional findings including the para-uterine lesions. Follow-up with gynecology is recommended. 3. Nonvisualization of the ovaries. ACT 112: Negative or not required by law. The above report was generated using voice recognition software. It may contain grammatical, syntax or spelling errors. Electronically signed by: Luis Aranda M.D. 05/09/2024 4:06 PM Chest X-Ray 05/09/24 16:35 INDICATION: Cough. TECHNIQUE: Frontal radiograph of the chest. COMPARISON: Radiograph from 03/20/2024. FINDINGS: Low inspiratory depth. Mild cardiomegaly. Pulmonary vasculature appear within normal limits. Chronic appearing interstitial lung markings, similar to prior. No infiltrate, pleural effusion or pneumothorax. No acute osseous abnormality evident. IMPRESSION: No acute cardiopulmonary process. Electronically signed by Niles Stafford 05-09-2024 5:30 PM Discharge Plan Visit Data Chief Complaint: Vaginal Bleeding Stated Complaint: ANEMIC, MASS IN UTERUS, VAG BLEEDING/HEAVY ED Provider: Portillo Bauer Discharge Problem: Leukocytosis, SIRS (systemic inflammatory response syndrome), Elevated lactic acid level, Abdominal pain, Anemia, Metastatic cancer Patient Disposition: Home - Self-Care Discharge Instructions Interventions: ED Discharge Assessment Last Done: 05/09/24 19:24 Discharge Problem: Leukocytosis Qualifiers: Leukocytosis type: unspecified Qualified Code(s): D72.829 - Elevated white blood cell count, unspecified Abdominal pain Qualifiers: Abdominal location: unspecified location Qualified Code(s): R10.9 - Unspecified abdominal pain Anemia Qualifiers: Anemia type: unspecified type Qualified Code(s): D64.9 - Anemia, unspecified Metastatic cancer Qualifiers: Area of secondary neoplastic involvement: unspecified site Qualified Code(s): C 79.9 - Secondary malignant neoplasm of unspecified site
[2024-05-09 14:52] LABS: Basophils # (auto) 0.03 K/uL (0.00-0.20); Basophils % (auto) 0.2 %; Hematocrit (blood only) 24.6 % (37.0-47.0); Hemoglobin 7.8 g/dl (12.0-16.0); Immature Granulocytes # (auto) 0.22 K/uL (0.01-0.20); Immature Granulocytes % (auto) 1.2 %; Lymphocytes # (auto) 1.91 K/uL (1.20-3.40); Lymphocytes % (auto) 10.5 %; Mean Corpuscular Hemoglobin 26.8 pg (25.0-34.0); Mean Corpuscular Hgb Conc 31.7 g/dL (32.0-36.0); Mean Corpuscular Volume 84.5 fL (80.0-100.0); Mean Platelet Volume 10.7 fL (9.4-12.4); Monocytes # (auto) 1.42 K/uL (0.11-0.59); Monocytes % (auto) 7.8 %; Neutrophils % (auto) 80.3 %; Nucleated RBC # (auto) 0.04 K/uL (0.00-0.12); Nucleated RBC % (auto) 0.2 %; Platelet Count 360 K/uL (130-400); RDW Coefficient of Variation 17.2 % (11.5-14.5); RDW Standard Deviation 52.8 fL (36.4-46.3); Red Blood Count 2.91 M/uL (4.20-5.40); White Blood Count 18.18 K/ul (4.8-10.8)
[2024-05-09 15:02] LABS: Alanine Aminotransferase 7 U/L (7-52); Albumin Globulin Ratio 0.8 (0.9-2); Albumin Level 3.1 gm/dl (3.4-5.0); Alkaline Phosphatase 68 U/L (34-104); Anion Gap 9 (3-11); Aspartate Aminotransferase 33 U/L (13-39); BUN Creatinine Ratio 22.4 (10-20); Bilirubin,Total 0.6 mg/dl (0.2-1.0); Blood Urea Nitrogen 22 mg/dl (6-23); Calcium 10.5 mg/dl (8.6-10.3); Carbon Dioxide 22 mmol/L (21-32); Chloride 103 mmol/L (98-107); Globulin 4.1 gm/dl (2.5-4.0); Glucose 140 mg/dl (70-99(Fasting)); Lipase 7 U/L (11-82); Potassium 4.2 mmol/L (3.5-5.1); Sodium 134 mmol/L (136-145); Total Protein 7.2 gm/dl (6.0-8.3)
[2024-05-09] MEDS: OPTIRAY 320 100ml IV ONE (15:18)
--- NOTE | 2024-05-09 15:55 | CT Scan Report ---
CT OF THE ABDOMEN AND PELVIS WITH CONTRAST CLINICAL HISTORY: Abdominal pain. COMPARISON STUDY: CT of the abdomen and pelvis March 28, 2024. TECHNIQUE: Following IV administration of 93 mL of Optiray, axial images of the abdomen and pelvis we re obtained from the lung bases to the proximal femurs. Images were reviewed in the axial, sagittal, and coronal planes. IV contrast was administered without complication. Automated exposure control wa s utilized for the study. A dose lowering technique was utilized adhering to the principles of ALARA . CT DOSE: 702.18 mGy.cm FINDINGS: No pneumatosis, free air or portal venous gas is present. Several hypodense hepatic lesions favor cysts. There is no biliary or pancreatic ductal dilatation. Spleen, adrenal glands, left kidne y and pancreas are unremarkable. A few suspected renal cysts are present. There is no hydronephrosis. 9 mm right renal calculus is noted. There are no ureteral calculi. There is no hydronephrosis. There is no evidence for a bowel obstruction. There is colonic diverticulosis without evidence for acute d iverticulitis. The uterus is markedly enlarged and heterogeneous. The endometrium is markedly distended and contains enhancing material. Conglomerate parauterine enhancing tissue extends into the adnexa. In addition, there is extensive abdominal and pelvic lymphadenopathy. Index right retrocrural lymph node on image 86 of 357 measures 1.9 x 1.7 cm. Retroperitoneal lymphadenopathy encases the abdominal aorta and IVC. Index conglomerate left para-aortic brianne mass on image 154 measures 5.8 x 4.7 cm. Index left pelvic sidewall lymph node on image 241 measures 3.7 x 2.4 cm. A right pelvic sidewall lymph node on image 233 measures 2.7 x 2.5 cm. This lymphadenopathy has progressed since prior CT. Multiple small right r etroperitoneal nodules measure up to 6 mm. Multiple suspected small omental/peritoneal implants measu re up to 9 mm. IMPRESSION: 1. Enlarged uterus with markedly thickened, heterogeneous endometrium. Conglomerate parauterine enhan cing tissue which extends into the adnexa. The findings are neoplastic and favor endometrial carcinom a. Gynecologic consultation is recommended. 2. Extensive retroperitoneal/retrocrural and pelvic lymphadenopathy consistent with brianne metastases. Suspected small omental/peritoneal implants and several small right retroperitoneal implants. 3. No evidence for a bowel obstruction. 4. 9 mm right renal calculus. No ureteral calculi. No hydronephrosis. ACT 112: Positive. There are findings on this exam that require communication between the performing entity and the patient following Patient Test Result Information Act ([place] Act 112) guidelines. Electronically signed by: Scot Bateman M.D. 05/09/2024 3:54 PM
[2024-05-09 16:07] LABS: Echinocytes 1+; Ovalocytes 1+; Polychromasia 2+
--- NOTE | 2024-05-09 16:08 | Ultrasound Report ---
US pelvic complete HISTORY: 78 years-old Female vaginal bleeding acute vaginal bleeding with known endometrial lesion COMPARISON: CT of same day TECHNIQUE: Multiple real-time and static images of the deep pelvic structures were obtained transabdo minally assessing grayscale appearance, color and spectral flow FINDINGS: Limited exam secondary to patient pain and discomfort. The uterus measures 14.1 x 7.6 x 12.3 cm and i s heterogeneous with numerous uterine masses. The largest mass is within the right uterus measuring 6 cm. Endometrium measures approximately 4 cm and demonstrates internal flow. Ovaries are not diagnost ically visualized. No significant free pelvic fluid. The adnexal/parauterine lesions are again noted, better seen on the CT study. IMPRESSION: 1. Limited exam as above. 2. Heterogeneous enlarged uterus with numerous masses including a large endometrial mass suggestive o f neoplasm. Please refer to the CT abdomen and pelvis of same day for additional findings including t he para-uterine lesions. Follow-up with gynecology is recommended. 3. Nonvisualization of the ovaries. ACT 112: Negative or not required by law. The above report was generated using voice recognition software. It may contain grammatical, syntax o r spelling errors. Electronically signed by: Luis Aranda M.D. 05/09/2024 4:06 PM
[2024-05-09] MEDS ORDERED: SODIUM CHLORIDE 0.9% 100 ML IV PRN ×2 (16:26→17:51)
[2024-05-09] MEDS ORDERED: SODIUM CHLORIDE 0.9% 50 ML IV PRN ×2 (16:26→17:51)
[2024-05-09] MEDS: MoRPHine SULFATE 4 MG/ML 1 ML CARP\\VIAL IV STA (16:42)
[2024-05-09] MEDS: PIPERACILLIN/TAZOBACTAM 4.5 GM/100 ML BAG IV ONE (17:10)
--- NOTE | 2024-05-09 17:30 | XRay Report ---
INDICATION: Cough. TECHNIQUE: Frontal radiograph of the chest. COMPARISON: Radiograph from 03/20/2024. FINDINGS: Low inspiratory depth. Mild cardiomegaly. Pulmonary vasculature appear within normal limits. Chronic appearing interstitial lung markings, similar to prior. No infiltrate, pleural effusion or pneumothorax. No acute osseous abnormality evident. IMPRESSION: No acute cardiopulmonary process. Electronically signed by Niles Stafford 05-09-2024 5:30 PM
--- NOTE | 2024-05-09 17:41 | History & Physical Report ---
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 Endometrial Mass Malignant neoplasm of endometrium with intraabdominal spread to lymph nodes and peritoneum Vaginal bleeding Anemia due to chronic blood loss Lactic Acidosis Possible Sepsis Possible Sepsis admit to PCU Pt with possible sepsis in setting of leukocytosis and tachycardia, CXR/Urine negative, received Zosyn in ED Empirically cover with IV rocephin until Blood cultures return Give IVF bolus x 1 now pt type and crossed, blood consent obtained, Blood consent was obtained from the patient (or patient delegate) as delegated by Dr. Brice. Risks and benefits were explained. All questions were answered, and the patient (or patient delegate) was offered the opportunity to discuss with attending physician and declined. 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 Brice, please see addendum I spent a total of 76 minutes reviewing notes, outpatient records, labs, medication, coordinating, documenting and providing care for this patient excluding time spent in the performance of separately billed services. History of Present Illness Chief Complaint: Worsening vaginal bleeding. Primary Care Provider: Chasity Mathew DO Julia Echeverria is a 78-year-old female with past medical history significant for mixed hyperlipidemia, history of hypercalcemia, history of hyperparathyroidism, history of multiple thyroid nodules, history of CKD stage III, history of moderate tricuspid regurgitation, diastolic dysfunction, GERD, CKD stage III, generalized osteoarthritis, glaucoma, history of spinal stenosis, history of PE/DVT in 2019 on eliquis who presents to ED secondary to vaginal bleeding. Of significance patient was last hospitalized on 03/21 to 03/28 secondary to acute encephalopathy in setting of urinary tract infection. She was treated with IV antibiotics. She did develop delirium. She was eventually discharged to [facility]. Since being at her side patient has lost 16 pounds. She has had overall poor intake, nausea and early satiety. She also continues to have intermittent vaginal bleeding with some days being very heavy and some days being very light. Her provider at [facility] recently held her Eliquis. Due to the worsening of her bleeding she was referred to ED due to concern for requiring transfusion. History is obtained from daughter and friend at bedside. History unobtainable from patient. History also obtained from chart review. In ED patient was tachycardic. Her blood pressures were borderline low. She have a significant leukocytosis at 18k, hemoglobin is 7.8, lactate 3.2 and corrected calcium at 11.4. She was provided IV Zosyn. Allergies Allergy/AdvReac Type Severity Reaction Status Date / Time atorvastatin AdvReac stomach Verified 02/08/24 07:16 upset. brand name ok Home Medications Medication Instructions Recorded Confirmed Type apixaban 5 mg tablet (Eliquis) 5 mg PO BID 03/21/24 05/09/24 History brimonidine 0.2 %-timolol 0.5 % 1 drp OPB BID 03/21/24 05/09/24 History eye drops cholecalciferol (vitamin D3) 25 25 mcg PO DAILY 03/21/24 05/09/24 History mcg (1,000 unit) tablet dorzolamide 2 % eye drops 1 drp OPB TID 03/21/24 05/09/24 History lisinopril 5 mg tablet 5 mg PO DAILY 03/21/24 05/09/24 History pantoprazole 40 mg tablet,delayed 40 mg PO DAILY 03/21/24 05/09/24 History release potassium chloride 10 mEq 20 meq PO DAILY 03/21/24 05/09/24 History tablet,extended release rosuvastatin 10 mg tablet 10 mg PO DAILY 03/21/24 05/09/24 History aspirin 81 mg tablet,delayed 81 mg PO DAILY #30 tabs 03/29/24 05/09/24 Rx release magnesium chloride 64 mg 64 mg PO BID #60 tabs 03/29/24 05/09/24 Rx (magnesium chloride) tablet,delayed release acetazolamide 500 mg 500 mg PO BID 05/09/24 05/09/24 History capsule,extended release mirtazapine 7.5 mg tablet 7.5 mg PO HS 05/09/24 05/09/24 History Past Med/Surg History Problem List (Updated 05/09/24 @ 20:17 by Portillo Bauer DO) Metastatic cancer (Acute) Anemia (Acute) Abdominal pain (Acute) Elevated lactic acid level (Acute) SIRS (systemic inflammatory response syndrome) (Acute) Leukocytosis (Acute) Anemia due to chronic blood loss Vaginal bleeding 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 PFO (patent foramen ovale) Chronic nausea Endometrial mass Vascular dementia of acute onset with behavioral disturbance Delirium Acute metabolic encephalopathy Altered mental status, unspecified (Acute) Hypokalemia DVT (deep venous thrombosis) CKD (chronic kidney disease), stage III GERD (gastroesophageal reflux disease) HLD (hyperlipidemia) HTN (hypertension) Parathyroid adenoma (Acute) Bilateral pulmonary embolism (Acute) Thyroid disease (Acute) Vitamin D deficiency (Chronic) Hypercalcemia (Chronic) Hyperparathyroidism (Chronic) Medical History Hx-TIA (transient ischemic attack) many years ago, occurred when walking to the bus for work, taken to hospital>no residual effects "reason for aspirin" per pt. 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) use of anticoagulants Glaucoma Chronic kidney disease, stage III (moderate) Hx pulmonary embolism 2020, bilat., currently on eliquis Hx of deep venous thrombosis pt unsure of any details of this, "just knows she had this" Hypertension Hyperlipidemia GERD (gastroesophageal reflux disease) Surgical History Hx of right cataract extraction Hx of section x2, w/tubal ligation on last one Hx of appendectomy History of esophagogastroduodenoscopy (EGD) Hx of colonoscopy Alpha teeth extracted Hx of tonsillectomy Family History Other Diabetes Social History Smoking Status: Never smoker Second Hand Exposure: No; Do You Dip or Chew Tobacco: No; Preferred Language: Brazilian Communication Ability: Effective Supervisor Blueprinting And Photocopy Required: No Beliefs That Will Affect Care: None marital status: Current Living Situation: Alone Current Living Situation Comment: lives in apt. building Feels Safe at Home: Yes Assistive Devices: Cane, Raised Toilet Seat and Walker Review of Systems Review of Systems: All systems reviewed & are unremarkable except as noted in HPI & below Physical Exam Physical Exam: Gen: Thin, fraile, elderly F, lying in bed, sleeping, NAD HEENT: Normocephalic, atraumatic, b/l temporal wasting mucous membranes dry Lung: no audible w/r/r Heart: tachycardic Abdomen: Soft, NT, ND +BS x 4 Extremities: No edema Skin: Warm, no rash Results & Data Results & Data Vital Signs (Past 12 Hours) Vital Signs Temp Pulse Pulse Resp BP BP Pulse Ox 05/09/24 16:32 113 H 22 100 05/09/24 16:11 115 H 22 100 05/09/24 15:32 108 H 22 99 05/09/24 14:35 119 H 16 111/87 98 05/09/24 14:29 122 H 05/09/24 14:29 120 H 18 99 05/09/24 13:49 36.8 C 90 20 104/74 98 O2 Del Method 05/09/24 16:32 05/09/24 16:11 05/09/24 15:32 05/09/24 14:35 Room Air 05/09/24 14:29 05/09/24 14:29 Room Air 05/09/24 13:49 Room Air Laboratory Results I have independently reviewed and interpreted patient's admitting labs including CBC, CMP, lactate, procal, lipase Diagnostic Findings Abdomen/Pelvis CT 05/09/24 14:07 CT OF THE ABDOMEN AND PELVIS WITH CONTRAST CLINICAL HISTORY: Abdominal pain. COMPARISON STUDY: CT of the abdomen and pelvis March 28, 2024. TECHNIQUE: Following IV administration of 93 mL of Optiray, axial images of the abdomen and pelvis were obtained from the lung bases to the proximal femurs. Images were reviewed in the axial, sagittal, and coronal planes. IV contrast was administered without complication. Automated exposure control was utilized for the study. A dose lowering technique was utilized adhering to the principles of ALARA. CT DOSE: 702.18 mGy.cm FINDINGS: No pneumatosis, free air or portal venous gas is present. Several hypodense hepatic lesions favor cysts. There is no biliary or pancreatic ductal dilatation. Spleen, adrenal glands, left kidney and pancreas are unremarkable. A few suspected renal cysts are present. There is no hydronephrosis. 9 mm right renal calculus is noted. There are no ureteral calculi. There is no hydronephrosis. There is no evidence for a bowel obstruction. There is colonic diverticulosis without evidence for acute diverticulitis. The uterus is markedly enlarged and heterogeneous. The endometrium is markedly distended and contains enhancing material. Conglomerate parauterine enhancing tissue extends into the adnexa. In addition, there is extensive abdominal and pelvic lymphadenopathy. Index right retrocrural lymph node on image 86 of 357 measures 1.9 x 1.7 cm. Retroperitoneal lymphadenopathy encases the abdominal aorta and IVC. Index conglomerate left para-aortic brianne mass on image 154 measures 5.8 x 4.7 cm. Index left pelvic sidewall lymph node on image 241 measures 3.7 x 2.4 cm. A right pelvic sidewall lymph node on image 233 measures 2.7 x 2.5 cm. This lymphadenopathy has progressed since prior CT. Multiple small right retroperitoneal nodules measure up to 6 mm. Multiple suspected small omental/peritoneal implants measure up to 9 mm. IMPRESSION: 1. Enlarged uterus with markedly thickened, heterogeneous endometrium. Conglomerate parauterine enhancing tissue which extends into the adnexa. The findings are neoplastic and favor endometrial carcinoma. Gynecologic consultation is recommended. 2. Extensive retroperitoneal/retrocrural and pelvic lymphadenopathy consistent with brianne metastases. Suspected small omental/peritoneal implants and several small right retroperitoneal implants. 3. No evidence for a bowel obstruction. 4. 9 mm right renal calculus. No ureteral calculi. No hydronephrosis. ACT 112: Positive. There are findings on this exam that require communication between the performing entity and the patient following Patient Test Result Information Act ([place] Act 112) guidelines. Electronically signed by: Scot Bateman M.D. 05/09/2024 3:54 PM Pelvis Ultrasound 05/09/24 14:44 US pelvic complete HISTORY: 78 years-old Female vaginal bleeding acute vaginal bleeding with known endometrial lesion COMPARISON: CT of same day TECHNIQUE: Multiple real-time and static images of the deep pelvic structures were obtained transabdominally assessing grayscale appearance, color and spectral flow FINDINGS: Limited exam secondary to patient pain and discomfort. The uterus measures 14.1 x 7.6 x 12.3 cm and is heterogeneous with numerous uterine masses. The largest mass is within the right uterus measuring 6 cm. Endometrium measures approximately 4 cm and demonstrates internal flow. Ovaries are not diagnostically visualized. No significant free pelvic fluid. The adnexal/parauterine lesions are again noted, better seen on the CT study. IMPRESSION: 1. Limited exam as above. 2. Heterogeneous enlarged uterus with numerous masses including a large endometrial mass suggestive of neoplasm. Please refer to the CT abdomen and pelvis of same day for additional findings including the para-uterine lesions. Follow-up with gynecology is recommended. 3. Nonvisualization of the ovaries. ACT 112: Negative or not required by law. The above report was generated using voice recognition software. It may contain grammatical, syntax or spelling errors. Electronically signed by: Luis Aranda M.D. 05/09/2024 4:06 PM Medications Administered Medication List Discontinued Medications Piperacillin Sod/Tazobactam Sod (Zosyn) 4.5 gm in 100 mls @ 200 mls/hr IV NOW ONE; Protocol Stop: 05/09/24 17:04 Last Admin: 05/09/24 17:10 Dose: 200 mls/hr Documented By: TAMIA Ioversol (Optiray 320 100ml) 93 ml IV ONCE ONE Stop: 05/09/24 15:19 Last Admin: 05/09/24 15:18 Dose: 93 ml Documented By: JULY Morphine Sulfate (Morphine Sulfate 4 Mg/Ml 1 Ml Carp\\Vial) 4 mg IV NOW STA Stop: 05/09/24 16:35 Last Admin: 05/09/24 16:42 Dose: 4 mg Documented By: TAMIA COVID-19 Results Results COVID-19 Adm Lab Results: RBC 2.91 M/uL (4.20-5.40) L 05/09/24 WBC 18.18 K/ul (4.8-10.8) H 05/09/24 Hgb 7.8 g/dl (12.0-16.0) L 05/09/24 Hct 24.6 % (37.0-47.0) L 05/09/24 Plt Count 360 K/uL (130-400) 05/09/24 Neutrophils (%) (Auto) 80.3 % 05/09/24 Lymphocytes (%) (Auto) 10.5 % 05/09/24 Monocytes # (Auto) 1.42 K/uL (0.11-0.59) H 05/09/24 Eosinophils # (Auto) 0.00 K/uL (0.00-0.50) 05/09/24 Immature Granulocyte % (Auto) 1.2 % 05/09/24 Neutrophils # (Auto) 14.60 K/uL (1.40-6.50) H 05/09/24 Lymphocytes # (Auto) 1.91 K/uL (1.20-3.40) 05/09/24 Monocytes # (Auto) 1.42 K/uL (0.11-0.59) H 05/09/24 Eosinophils # (Auto) 0.00 K/uL (0.00-0.50) 05/09/24 Basophils # (Auto) 0.03 K/uL (0.00-0.20) 05/09/24 Immature Granulocyte # (Auto) 0.22 K/uL (0.01-0.20) H 05/09 Polychromasia 2+ 05/09/24 Echinocytes 1+ 05/09/24 Ovalocytes 1+ 05/09/24 Na 134 mmol/L (136-145) L 05/09/24 K 4.2 mmol/L (3.5-5.1) 05/09/24 Cl 103 mmol/L (98-107) 05/09/24 CO2 22 mmol/L (21-32) 05/09/24 Anion Gap 9 (3-11) 05/09/24 BUN 22 mg/dl (6-23) 05/09/24 Creatinine 0.98 mg/dl (0.6-1.2) 05/09/24 BUN/Creatinine Ratio 22.4 (10-20) H 05/09/24 Glucose Level 140 mg/dl (70-99(Fasting)) H 05/09/24 Ca 10.5 mg/dl (8.6-10.3) H 05/09/24 Total Bilirubin 0.6 mg/dl (0.2-1.0) 05/09/24 AST/SGOT 33 U/L (13-39) 05/09/24 ALT/SGPT 7 U/L (7-52) 05/09/24 Alkaline Phosphatase 68 U/L (34-104) 05/09/24 Total Protein 7.2 gm/dl (6.0-8.3) 05/09/24 Albumin 3.1 gm/dl (3.4-5.0) L 05/09/24 Globulin 4.1 gm/dl (2.5-4.0) H 05/09/24 Albumin/Globulin Ratio 0.8 (0.9-2) L 05/09/24 Procalcitonin 0.49 ng/ml (0-0.5) 05/09/24 Chest X-Ray 05/09/24 Code Status & VTE Plan Code Status FULL CODE - no feeding tubes or surgeries VTE Prophylaxis Plan VTE Prophylaxis will be ordered: Yes Supervising Physician Co-Signing Physician Notes Attending Addendum: Case reviewed with the advanced practitioner. I have personally performed a history and physical examination on the patient. I have reviewed the advanced practitioner's documentation on the date of service referenced in note, and I agree with, and take responsibility for the plan of care. please refer to her notes for full details patient seen and examined, records reviewed by myself as well on exam, patient seen resting in bed, sleeping, has received IV morphine not in distress, not tachypneic, comfortable patient's daughter Debbie at bedside- discussed plan of care in detail, she is agreeable and understanding no other symptoms VS noted and reviewed sleeping , not in distress, no effort nor accessory muscle use normal rate, regular rhythm, no murmurs clear breath sounds bilaterally non distended, soft, nontender no bipedal edema, erythema, warmth all labs, imaging noted and reviewed ASSESSMENT AND PLAN> Acute blood loss anemia, secondary to uterine bleeding Likely uterine CA with metastasis to lymph nodes, mesentery Noted to have intermittent vaginal bleeding at the shelter facility No active vaginal bleeding while at the ER Baseline hemoglobin around 10, currently 7.9 Has been weak, with poor appetite per daughter for the past few days Blood pressure on the lower side Positive lactic acidosis 3.2--> 2.6 after IV fluids Continue IV fluid 1 unit packed RBC ordered Monitor H&H FRUIT SPRAYER consulted for recommendations regarding vaginal bleeding in the setting of uterine cancer with metastasis to lymph nodes in the mesentery per CT abdomen and pelvis Palliative care service also consulted Questionable sepsis given tachycardia, leukocytosis No clear focus of infection at this point SIRS may be secondary to anemia, underlying CA Chest x-ray no pneumonia, UA negative Empiric IV ceftriaxone Monitor closely other diagnoses and plan of care as per advanced practitioner's notes Srinivas Brice MD
[2024-05-09 17:43] LABS: Appearance Urine Clear (Clear); Bilirubin Urine Negative (Negative); Blood Urine Negative (Negative); Color Urine Yellow; Glucose Urine UA Negative (Negative); Ketones Urine Negative (Negative); Leukocyte Esterase Urine Negative (Negative); Nitrite Urine Negative (Negative); Protein Urine Negative (Negative); Specific Gravity Urine > 1.045 (1.000-1.030); Urobilinogen Urine Negative (Negative)
[2024-05-09] MEDS: SODIUM CHLORIDE 0.9% 1,000 ML IV ONE (17:45)
[2024-05-09] MEDS ORDERED: ONDANSETRON INJ 2 MG/ML 2 ML VIAL IV PRN (20:01)
[2024-05-09] MEDS ORDERED: Patient's HEIGHT &/or WEIGHT Needed SCH (20:15)
[2024-05-09] MEDS ORDERED: BRIMONIDINE TART 0.2% OP SOLN PER DROP CHARGE OPB SCH (21:00)
[2024-05-09] MEDS: BRIMONIDINE TARTRATE 0.2% 5ML OPB SCH (21:24)
[2024-05-09] MEDS: DORZOLAMIDE HCL 2% OPH SOLN 10 ML BTL OPB SCH (21:24)
[2024-05-09] MEDS: TIMOLOL MALEATE 0.5% OP SOLN 5 ML BTL OPB SCH (21:25)
[2024-05-09] MEDS: acetaZOLAMIDE 500 MG CAPCR PO SCH (21:26)
[2024-05-09] MEDS: MIRTAZAPINE TAB 15 MG TAB PO SCH (21:27)
[2024-05-09] MEDS: MAGNESIUM CHLORIDE W/CALCIUM 64MG DELAYED REL TAB PO SCH (21:27)
[2024-05-09] MEDS: ACETAMINOPHEN 325 MG TAB PO SCH (21:31)
[2024-05-09] MEDS: cefTRIAXone SODIUM 2,000 MG/50 ML BAG IV SCH (21:32)
[2024-05-09 22:47] LABS: Hematocrit (blood only) 24.7 % (37.0-47.0)
[2024-05-10 05:36] LABS: Basophils # (auto) 0.06 K/uL (0.00-0.20); Basophils % (auto) 0.4 %; Eosinophils # (auto) 0.05 K/uL (0.00-0.50); Eosinophils % (auto) 0.3 %; Hematocrit (blood only) 24.8 % (37.0-47.0); Hemoglobin 8.1 g/dl (12.0-16.0); Immature Granulocytes # (auto) 0.13 K/uL (0.01-0.20); Immature Granulocytes % (auto) 0.8 %; Lymphocytes # (auto) 1.83 K/uL (1.20-3.40); Lymphocytes % (auto) 11.6 %; Mean Corpuscular Hemoglobin 27.6 pg (25.0-34.0); Mean Corpuscular Hgb Conc 32.7 g/dL (32.0-36.0); Mean Corpuscular Volume 84.4 fL (80.0-100.0); Mean Platelet Volume 10.3 fL (9.4-12.4); Monocytes # (auto) 1.65 K/uL (0.11-0.59); Monocytes % (auto) 10.4 %; Neutrophils % (auto) 76.5 %; Nucleated RBC # (auto) 0.07 K/uL (0.00-0.12); Nucleated RBC % (auto) 0.4 %; Platelet Count 289 K/uL (130-400); RDW Coefficient of Variation 16.8 % (11.5-14.5); RDW Standard Deviation 50.5 fL (36.4-46.3); Red Blood Count 2.94 M/uL (4.20-5.40); White Blood Count 15.82 K/ul (4.8-10.8)
[2024-05-10 05:53] LABS: Albumin Globulin Ratio 0.7 (0.9-2); Albumin Level 2.6 gm/dl (3.4-5.0); BUN Creatinine Ratio 20.2 (10-20); Bilirubin,Total 0.4 mg/dl (0.2-1.0); Calcium 9.6 mg/dl (8.6-10.3); Creatinine Clr Calc Pharmacy 54.2 ml/min; Globulin 3.6 gm/dl (2.5-4.0); Potassium 3.9 mmol/L (3.5-5.1); Total Protein 6.2 gm/dl (6.0-8.3)
[2024-05-10] MEDS: SODIUM CHLORIDE 0.9% 1,000 ML IV ONE (06:02)
[2024-05-10] MEDS: CHOLECALCIFEROL 25 MCG (1000 UNITS) TAB PO SCH (08:23)
[2024-05-10] MEDS: PANTOprazole 40 MG TAB PO SCH (08:23)
[2024-05-10] MEDS: ROSUVASTATIN CALCIUM 10 MG TAB PO SCH (08:25)
[2024-05-10] MEDS: oxyCODONE HCL IR 5 MG TAB (IMMEDIATE RELEASE) PO PRN (11:09)
[2024-05-10 11:17] LABS: Hematocrit (blood only) 26.4 % (37.0-47.0); Hemoglobin 8.4 g/dl (12.0-16.0)
--- NOTE | 2024-05-10 15:17 | Hospitalist Progress Note ---
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 Endometrial Mass Malignant neoplasm of endometrium with intraabdominal spread to lymph nodes and peritoneum Vaginal bleeding Anemia due to chronic blood loss Lactic Acidosis Possible Sepsis Possible Sepsis Pt with possible sepsis in setting of leukocytosis and tachycardia, CXR/Urine negative, received Zosyn in ED Empirically cover with IV rocephin until Blood cultures return Give IVF bolus x 1 now pt type and crossed, blood consent obtained, Blood consent was obtained from the patient (or patient delegate) as delegated by Dr. Brice. Risks and benefits were explained. All questions were answered, and the patient (or patient delegate) was offered the opportunity to discuss with attending physician and declined. 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 is working on hospice placement Likely discharge tomorrow Severe malnutrition Nutritional assessment Vascular dementia delirium precautions Poor Po Intake Unintentional weight loss, 16lbs in last 1.5 months recently started on mirtazapine, 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 History of pulmonary embolism/DVT On Eliquis - this is currently on hold given vaginal bleeding CKD stage III stable cr Chronic HFpEF EF 55-60% on 03/21 Pt dry on exam Glaucoma Continue eyedrops Hyperlipidemia Statin Hypertension On lisinopril, hold 2/2 lower bp DVT prophylaxis Eliquis on hold, SCDS Disposition admit to PCU Full code - discussed with daughter, wishes are for full code based at this time given her mothers wishes and living will Admission and Anticipated Discharge Date Admission Date: May 09, 2024 Subjective 05/10/2024 The patient was seen and examined in telemetry unit in presence of the family members She has been complaining of lower abdominal pain and also left inguinal area pain secondary to uterine mass with metastasis Still having vaginal bleeding and awaiting AIR ROUTE TRAFFIC CONTROLLER evaluation Pain is reasonably controlled Review of Systems Review of Systems: All systems reviewed and are unremarkable except as noted below Physical Exam Physical Exam: Lying in bed with minimal distress Constitutional: + ill appearing and + cachectic Eyes: PERRL, conjunctivae normal, anicteric sclerae ENMT: external ear and nose normal, oropharynx normal Neck: trachea midline, no thyromegaly Respiratory: no respiratory distress Auscultation: lungs clear to auscultation bilaterally Cardiovascular: Rate/Rhythm: regular rate and regular rhythm; not tachycardic Heart Sounds: normal S1 and normal S2; no murmur Extremities: no edema Gastrointestinal (Abdomen): Inspection/Auscultation: normal bowel sounds ( no acute arthritis involving any of the joint); abdomen not distended Percussion/Palpation: + abdomen tender ( lower quadrant and mainly on the left side) and abdomen soft Musculoskeletal: No acute arthritis involving any of the joint Neurologic: normal touch/pain/proprioception and moves all extremities; no focal motor deficits Results & Data Results & Data Vital Signs (Past 12 Hours) Vital Signs Temp Pulse Resp BP Pulse Ox O2 Del Method 05/10/24 11:03 36.6 C 90 18 102/69 99 Room Air 05/10/24 07:05 36.7 C 95 H 18 92/70 L 99 Room Air Laboratory Results Short CBC 05/09/24 05/10/24 05/10/24 Range/Units 22:35 05:19 11:00 WBC 15.82 H (4.8-10.8) K/ul Hgb 8.0 L 8.1 L 8.4 L (12.0-16.0) g/dl Hct 24.7 L 24.8 L 26.4 L (37.0-47.0) % Plt Count 289 (130-400) K/uL BMP 05/10/24 05:19 Sodium 137 Potassium 3.9 Chloride 108 H Carbon Dioxide 23 BUN 18 Creatinine 0.89 Glucose 97 Calcium 9.6 Liver Function 05/10/24 Range/Units 05:19 Total Bilirubin 0.4 (0.2-1.0) mg/dl AST 28 (13-39) U/L ALT 6 L (7-52) U/L Alkaline Phosphatase 57 (34-104) U/L Albumin 2.6 L (3.4-5.0) gm/dl Urine 05/09/24 Range/Units 17:31 Urine Color Yellow Urine Appearance Clear (Clear) Urine pH 5.0 (4.5-7.5) Ur Specific [place] > 1.045 H (1.000-1.030) Urine Protein Negative (Negative) Urine Glucose (UA) Negative (Negative) Medications Administered Current Inpatient Medications Acetaminophen (Acetaminophen 325 Mg Tab) 650 mg PO QID NAIDA Stop: 06/08/24 20:59 Last Admin: 05/10/24 13:34 Dose: 650 mg Acetazolamide (Acetazolamide 500 Mg Capcr) 500 mg PO BID@0900,1700 NAIDA Stop: 06/08/24 20:59 Last Admin: 05/10/24 08:22 Dose: 500 mg Brimonidine Tartrate (Brimonidine Tartrate 0.2% 5ml) 1 drops OPB BID NAIDA Stop: 06/08/24 20:59 Last Admin: 05/10/24 08:25 Dose: 1 drops Dorzolamide HCl (Dorzolamide Hcl 2% Oph Soln 10 Ml Btl) 1 drops OPB TID NAIDA Stop: 06/08/24 20:59 Last Admin: 05/10/24 13:35 Dose: 1 drops Ceftriaxone Sodium (Rocephin) 2,000 mg in 50 mls @ 100 mls/hr IV Q24H NAIDA Stop: 05/19/24 21:59 Last Infusion: 05/09/24 22:02 Dose: Infused Sodium Chloride (Nss) 1,000 mls @ 80 mls/hr IV .[id number] ONE Stop: 05/10/24 18:15 Last Admin: 05/10/24 06:02 Dose: 80 mls/hr Magnesium Chloride (Magnesium Chloride W/Calcium 64mg Delayed Rel Tab) 64 mg PO BID NAIDA Stop: 06/08/24 20:59 Last Admin: 05/10/24 08:23 Dose: 64 mg Mirtazapine (Mirtazapine Tab 15 Mg Tab) 7.5 mg PO HS NAIDA Stop: 06/08/24 20:59 Last Admin: 05/09/24 21:27 Dose: 7.5 mg Morphine Sulfate (Morphine Sulfate 2 Mg/Ml Carp) 2 mg IV Q4H PRN PRN Reason: Severe Pain (Scale 7, 8, 9,10) Stop: 05/23/24 20:00 Ondansetron HCl (Ondansetron Inj 2 Mg/Ml 2 Ml Vial) 4 mg IV Q6H PRN PRN Reason: Nausea Stop: 06/08/24 20:00 Oxycodone HCl (Oxycodone Hcl Ir 5 Mg Tab (Immediate Release)) 5 mg PO Q6H PRN PRN Reason: Pain Stop: 05/24/24 09:50 Last Admin: 05/10/24 11:09 Dose: 5 mg Pantoprazole Sodium (Pantoprazole 40 Mg Tab) 40 mg PO DAILY NAIDA Stop: 06/09/24 08:59 Last Admin: 05/10/24 08:23 Dose: 40 mg Rosuvastatin Calcium (Rosuvastatin Calcium 10 Mg Tab) 10 mg PO DAILY NAIDA Stop: 06/09/24 08:59 Last Admin: 05/10/24 08:25 Dose: 10 mg Timolol Maleate (Timolol Maleate 0.5% Op Soln 5 Ml Btl) 1 drops OPB BID NAIDA Stop: 06/08/24 20:59 Last Admin: 05/10/24 08:26 Dose: 1 drops Vitamin D (Cholecalciferol 25 Mcg (1000 Units) Tab) 25 mcg PO DAILY NAIDA Stop: 06/09/24 08:59 Last Admin: 05/10/24 08:23 Dose: 25 mcg
[2024-05-10] MEDS: MoRPHine SULFATE 2 MG/ML CARP IV PRN (15:27)
[2024-05-10 17:15] LABS: Hematocrit (blood only) 26.8 % (37.0-47.0); Hemoglobin 8.4 g/dl (12.0-16.0)
--- NOTE | 2024-05-10 18:10 | Consultation ---
Date of Consultation May 10, 2024 Assessment & Plan (1) Metastatic cancer: I have discussed with the the patient's daughter the possibility that she would be a candidate for surgery which would most likely have she would have to be transferred to [place] for this the other alternative would be to consider radiation oncology for palliative radiation to control the bleeding. I will also consider starting her on Aygestin for bleeding and restarting her Eliquis to prevent DVT or PE. Patient's family will be in touch and she will decide which option is best for her mom (2) Abdominal pain: (3) Vaginal bleeding: History of Present Illness Requesting Physician: Dr. Pereira Reason for Consultation: Vaginal bleeding and pelvic mass Attending Physician: Karthik Pereira MD History of Present Illness 78-year-old black female para 5-0-0-5 postmenopausal presents from a senior living with vaginal bleeding and possible sepsis. She is a poor historian and cannot give an accurate history. The history was reviewed with her daughter present for the consultation. She states that since January of this year she has had vaginal bleeding and ultrasound was performed at that time revealing a pelvic mass she was trying to get into see the cooper apprentice but due to the fact that her PCP was ill it was never arranged. She presented again and another ultrasound and CAT scan were performed revealing a large pelvic mass along with intra-abdominal lymph nodes metastatic from the uterus. This is presumed to be endometrial CA. She has no history of gynecological problems. She had C- section x 2 with tubal ligation. She also had appendectomy done in the past. No other abdominal surgery. She had a history of PE and DVTs in 2019 and was on Eliquis which was held on admission here due to the vaginal bleeding. She received blood transfusion for the anemia. She is now stabilized but the bleeding continues. And it is light. Allergies Allergy/AdvReac Type Severity Reaction Status Date / Time atorvastatin AdvReac stomach Verified 02/08/24 07:16 upset. brand name ok Home Medications Medication Instructions Recorded Confirmed Type apixaban 5 mg tablet (Eliquis) 5 mg PO BID 03/21/24 05/09/24 History brimonidine 0.2 %-timolol 0.5 % 1 drp OPB BID 03/21/24 05/09/24 History eye drops cholecalciferol (vitamin D3) 25 25 mcg PO DAILY 03/21/24 05/09/24 History mcg (1,000 unit) tablet dorzolamide 2 % eye drops 1 drp OPB TID 03/21/24 05/09/24 History lisinopril 5 mg tablet 5 mg PO DAILY 03/21/24 05/09/24 History pantoprazole 40 mg tablet,delayed 40 mg PO DAILY 03/21/24 05/09/24 History release potassium chloride 10 mEq 20 meq PO DAILY 03/21/24 05/09/24 History tablet,extended release rosuvastatin 10 mg tablet 10 mg PO DAILY 03/21/24 05/09/24 History aspirin 81 mg tablet,delayed 81 mg PO DAILY #30 tabs 03/29/24 05/09/24 Rx release magnesium chloride 64 mg 64 mg PO BID #60 tabs 03/29/24 05/09/24 Rx (magnesium chloride) tablet,delayed release acetazolamide 500 mg 500 mg PO BID 05/09/24 05/09/24 History capsule,extended release mirtazapine 7.5 mg tablet 7.5 mg PO HS 05/09/24 05/09/24 History Patient History Medical History Hx-TIA (transient ischemic attack) many years ago, occurred when walking to the bus for work, taken to hospital>no residual effects "reason for aspirin" 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 Glaucoma Chronic kidney disease, stage III (moderate) Hx pulmonary embolism 2020, bilat., currently on eliquis Hx of deep venous thrombosis pt unsure of any details of this, "just knows she had this" Hypertension Hyperlipidemia GERD (gastroesophageal reflux disease) Surgical History Hx of right cataract extraction Hx of section x2, w/tubal ligation on last one Hx of appendectomy History of esophagogastroduodenoscopy (EGD) Hx of colonoscopy [place] teeth extracted Hx of tonsillectomy Family History Other Diabetes Social History Smoking Status: Never smoker Second Hand Exposure: No; Do You Dip or Chew Tobacco: No; Hx Alcohol Use: No Hx Substance Use: No Preferred Language: [place] Communication Ability: Effective Double End 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 Operator Required: No Beliefs That Will Affect Care: None marital status: Current Living Situation: [facility] Current Living Situation Comment: [place] Feels Safe at Home: Yes Assistive Devices: Walker and Wheelchair Assistive Devices Comment: "has not been wearing her dentures" Review of Systems Review of Systems: All systems reviewed & are unremarkable except as noted in HPI & below Physical Exam Constitutional: WD/WN, vitals as above Eyes: PERRL, conjunctivae normal, anicteric sclerae Gastrointestinal (Abdomen): Inspection/Auscultation: abdomen normal to inspection Her abdomen is soft there is a palpable mass in the midline with an enlarged uterus that is noted. No evidence of ascites. Musculoskeletal: Extremities: extremities normal to inspection Her extremities are normal without any evidence of swelling. No edema noted. Skin: no rashes, warm and dry Neurologic: Somewhat altered mental status with evidence of dementia Results & Data Vital Signs (Past 12 Hours) Vital Signs Temp Pulse Resp BP Pulse Ox O2 Del Method 05/10/24 15:33 36.6 C 93 H 18 92/63 L 97 Room Air 05/10/24 11:03 36.6 C 90 18 102/69 99 Room Air 05/10/24 07:05 36.7 C 95 H 18 92/70 L 99 Room Air Laboratory Results Laboratory Results - last 72 hr 05/09/24 05/09/24 05/09/24 14:25 16:44 17:31 WBC 18.18 H RBC 2.91 L Hgb 7.8 L Hct 24.6 L MCV 84.5 MCH 26.8 MCHC 31.7 L RDW Std Deviation 52.8 H RDW Coeff of [place] 17.2 H Plt Count 360 MPV 10.7 Immature Gran % (Auto) 1.2 Neut % (Auto) 80.3 Lymph % (Auto) 10.5 [place] % (Auto) 7.8 Eos % (Auto) 0.0 Baso % (Auto) 0.2 Neut # (Auto) 14.60 H Lymph # (Auto) 1.91 [place] # (Auto) 1.42 H Eos # (Auto) 0.00 Baso # (Auto) 0.03 Immature Gran # (Auto) 0.22 H Absolute Nucleated RBC 0.04 Nucleated RBC % (auto) 0.2 Polychromasia 2+ Ovalocytes 1+ Echinocytes 1+ Sodium 134 L Potassium 4.2 Chloride 103 Carbon Dioxide 22 Anion Gap 9 BUN 22 Creatinine 0.98 Est Cr Clr Drug Dosing Not Reportable eGFR 59.82 BUN/Creatinine Ratio 22.4 H Glucose 140 H Lactate 3.2 H* Calcium 10.5 H Total Bilirubin 0.6 AST 33 ALT 7 Alkaline Phosphatase 68 Total Protein 7.2 Albumin 3.1 L Globulin 4.1 H Albumin/Globulin Ratio 0.8 L Lipase 7 L Procalcitonin 0.49 Urine Color Yellow Urine Appearance Clear Urine pH 5.0 Ur Specific [place] > 1.045 H Urine Protein Negative Urine Glucose (UA) Negative Urine Ketones Negative Urine Blood Negative Urine Nitrite Negative Urine Bilirubin Negative Urine Urobilinogen Negative Ur Leukocyte Esterase Negative Nasal Screen MRSA (PCR) Blood Type A Positive Antibody Screen NEGATIVE Crossmatch See Detail 05/09/24 05/09/24 05/09/24 18:55 21:40 22:35 WBC RBC Hgb 8.0 L Hct 24.7 L MCV MCH MCHC RDW Std Deviation RDW Coeff of [place] Plt Count MPV Immature Gran % (Auto) Neut % (Auto) Lymph % (Auto) [place] % (Auto) Eos % (Auto) Baso % (Auto) Neut # (Auto) Lymph # (Auto) [place] # (Auto) Eos # (Auto) Baso # (Auto) Immature Gran # (Auto) Absolute Nucleated RBC Nucleated RBC % (auto) Polychromasia Ovalocytes Echinocytes Sodium Potassium Chloride Carbon Dioxide Anion Gap BUN Creatinine Est Cr Clr Drug Dosing eGFR BUN/Creatinine Ratio Glucose Lactate 2.6 H* Calcium Total Bilirubin AST ALT Alkaline Phosphatase Total Protein Albumin Globulin Albumin/Globulin Ratio Lipase Procalcitonin Urine Color Urine Appearance Urine pH Ur Specific [place] Urine Protein Urine Glucose (UA) Urine Ketones Urine Blood Urine Nitrite Urine Bilirubin Urine Urobilinogen Ur Leukocyte Esterase Nasal Screen MRSA (PCR) Negative Blood Type Antibody Screen Crossmatch 05/10/24 05/10/24 05/10/24 05:19 05:21 11:00 WBC 15.82 H RBC 2.94 L Hgb 8.1 L 8.4 L Hct 24.8 L 26.4 L MCV 84.4 MCH 27.6 MCHC 32.7 RDW Std Deviation 50.5 H RDW Coeff of [place] 16.8 H Plt Count 289 MPV 10.3 Immature Gran % (Auto) 0.8 Neut % (Auto) 76.5 Lymph % (Auto) 11.6 [place] % (Auto) 10.4 Eos % (Auto) 0.3 Baso % (Auto) 0.4 Neut # (Auto) 12.10 H Lymph # (Auto) 1.83 [place] # (Auto) 1.65 H Eos # (Auto) 0.05 Baso # (Auto) 0.06 Immature Gran # (Auto) 0.13 Absolute Nucleated RBC 0.07 Nucleated RBC % (auto) 0.4 Polychromasia Ovalocytes Echinocytes Sodium 137 Potassium 3.9 Chloride 108 H Carbon Dioxide 23 Anion Gap 6 BUN 18 Creatinine 0.89 Est Cr Clr Drug Dosing 54.2 eGFR 67.15 BUN/Creatinine Ratio 20.2 H Glucose 97 Lactate 1.7 Calcium 9.6 Total Bilirubin 0.4 AST 28 ALT 6 L Alkaline Phosphatase 57 Total Protein 6.2 Albumin 2.6 L Globulin 3.6 Albumin/Globulin Ratio 0.7 L Lipase Procalcitonin Urine Color Urine Appearance Urine pH Ur Specific [place] Urine Protein Urine Glucose (UA) Urine Ketones Urine Blood Urine Nitrite Urine Bilirubin Urine Urobilinogen Ur Leukocyte Esterase Nasal Screen MRSA (PCR) Blood Type Antibody Screen Crossmatch 05/10/24 16:55 WBC RBC Hgb 8.4 L Hct 26.8 L MCV MCH MCHC RDW Std Deviation RDW Coeff of [place] Plt Count MPV Immature Gran % (Auto) Neut % (Auto) Lymph % (Auto) [place] % (Auto) Eos % (Auto) Baso % (Auto) Neut # (Auto) Lymph # (Auto) [place] # (Auto) Eos # (Auto) Baso # (Auto) Immature Gran # (Auto) Absolute Nucleated RBC Nucleated RBC % (auto) Polychromasia Ovalocytes Echinocytes Sodium Potassium Chloride Carbon Dioxide Anion Gap BUN Creatinine Est Cr Clr Drug Dosing eGFR BUN/Creatinine Ratio Glucose Lactate Calcium Total Bilirubin AST ALT Alkaline Phosphatase Total Protein Albumin Globulin Albumin/Globulin Ratio Lipase Procalcitonin Urine Color Urine Appearance Urine pH Ur Specific [place] Urine Protein Urine Glucose (UA) Urine Ketones Urine Blood Urine Nitrite Urine Bilirubin Urine Urobilinogen Ur Leukocyte Esterase Nasal Screen MRSA (PCR) Blood Type Antibody Screen Crossmatch Diagnostic Findings Ultrasound and CAT scan confirmed endometrial mass with lymph nodes. no evidence of ascites. (1) Metastatic cancer Area of secondary neoplastic involvement: unspecified site Qualified Code(s): C79.9 - Secondary malignant neoplasm of unspecified site (2) Abdominal pain Abdominal location: unspecified location Qualified Code(s): R10.9 - Unspe cified abdominal pain
--- NOTE | 2024-05-10 21:22 | Palliative Care Consultation ---
Date of Consultation May 10, 2024 Assessment & Plan (1) Abdominal pain: Abdominal location: unspecified location Qualified Code(s): R10.9 - Unspecified abdominal pain (2) Acute urinary retention: Silver ordered patient unable to tolerate frequent bedpan due to confusion (3) Metastatic cancer: Area of secondary neoplastic involvement: unspecified site Qualified Code(s): C79.9 - Secondary malignant neoplasm of unspecified site (4) Palliative care by specialist: Introduced Palliative Medicine and explained our role in patient's care. Patient and/or family were receptive to palliative services for goals of care discussions. Reviewed we are different from hospice, a home health nurse visiting service. (5) Discussion about advance care planning held with family member: Met with dtr/JO Castorena in family meeting room face to face for 4omin spoke about pt decline and worsening PS there are five children in total - 2 brothers in [place], one sister near [place]/does not keep in touch, one brother in [facility]. Raffaele is the oldest. reviewed her POA and ACP document which states she wants to be a full code "until there is no hope then comfortable/painless end of life care." Awaiting PUBLIC RELATIONS eval,states her brother from [facility] has a planned visit coming next week and one of 2 brother from [place] is coming on the . she states there is family conflict, with some feeling aggressive interventions should be done. We spoke about CPR outcomes and risk in context of advanced illness, frailty, age, declining PS, dementia and likely an advanced cancer. arronmarizolzain agreed but feels family pressure. i suggested and she agreed to wait and see what PUBLIC RELATIONS eval will suggest and offer for prognostic analysis (6) Post-menopausal bleeding: Plan As above follow up Wednesday Thank you for allowing us to participate in the ongoing care of this patient. Please page with any additional concerns. Archie Adams DNP Director, Palliative Medicine History of Present Illness Reason for Consultation: cancer pain, declining Attending Physician: Karthik Pereira MD History of Present Illness 78yo female with newer dementia dx and pelvic mass and post menopausal bleeding for ?2-3 month that started as some spotting and progressed to heavier bleeding, which has now intensified to very heavy at times along with weakness, worsening MS. Seen at bedside with daughter and POA/Raffaele present. pt is confused at baseline with brief moments of some lucidity but overall cannot provide HPI or follow commands Allergies Allergy/AdvReac Type Severity Reaction Status Date / Time atorvastatin AdvReac stomach Verified 02/08/24 07:16 upset. brand name ok Home Medications Medication Instructions Recorded Confirmed Type apixaban 5 mg tablet (Eliquis) 5 mg PO BID 03/21/24 05/09/24 History brimonidine 0.2 %-timolol 0.5 % 1 drp OPB BID 03/21/24 05/09/24 History eye drops cholecalciferol (vitamin D3) 25 25 mcg PO DAILY 03/21/24 05/09/24 History mcg (1,000 unit) tablet dorzolamide 2 % eye drops 1 drp OPB TID 03/21/24 05/09/24 History lisinopril 5 mg tablet 5 mg PO DAILY 03/21/24 05/09/24 History pantoprazole 40 mg tablet,delayed 40 mg PO DAILY 03/21/24 05/09/24 History release potassium chloride 10 mEq 20 meq PO DAILY 03/21/24 05/09/24 History tablet,extended release rosuvastatin 10 mg tablet 10 mg PO DAILY 03/21/24 05/09/24 History aspirin 81 mg tablet,delayed 81 mg PO DAILY #30 tabs 03/29/24 05/09/24 Rx release magnesium chloride 64 mg 64 mg PO BID #60 tabs 03/29/24 05/09/24 Rx (magnesium chloride) tablet,delayed release acetazolamide 500 mg 500 mg PO BID 05/09/24 05/09/24 History capsule,extended release mirtazapine 7.5 mg tablet 7.5 mg PO HS 05/09/24 05/09/24 History Patient History Medical History Hx-TIA (transient ischemic attack) many years ago, occurred when walking to the bus for work, taken to hospital>no residual effects "reason for aspirin" per pt. long term (current) use of anticoagulants Glaucoma Chronic kidney disease, stage III (moderate) Hx pulmonary embolism 2019, bilat., currently on eliquis Hx of deep venous thrombosis pt unsure of any details of this, "just knows she had this" Hypertension Hyperlipidemia GERD (gastroesophageal reflux disease) Surgical History Hx of right cataract extraction Hx of section x2, w/tubal ligation on last one Hx of appendectomy History of esophagogastroduodenoscopy (EGD) Hx of colonoscopy [place] teeth extracted Hx of tonsillectomy Family History Other Diabetes Social History Smoking Status: Never smoker Second Hand Exposure: No; Do You Dip or Chew Tobacco: No; Hx Alcohol Use: No Hx Substance Use: No Preferred Language: Georgian Communication Ability: Effective It Sales Executive Required: No Beliefs That Will Affect Care: None marital status: Current Living Situation: Long-Term Current Living Situation Comment: [place] Feels Safe at Home: Yes Assistive Devices: Walker and Wheelchair Assistive Devices Comment: "has not been wearing her dentures" Review of Systems Review of Systems: Unobtainable due to cognitive status Physical Exam Constitutional: + ill appearing, + altered mental status , + frail appearing and + lethargic Eyes: + eyes dysmorphic ENMT: oral mucosa sl dry Neck: normal visual inspection and trachea midline Thyroid: normal thyroid Respiratory: + labored breathing Cardiovascular: Rate/Rhythm: + irregularly irregular Gastrointestinal (Abdomen): Inspection/Auscultation: + abdomen distended (firmer) Percussion/Palpation: + abdomen tender Musculoskeletal: gen weakness Skin: pale, cool Neurologic: + confused Results & Data Vital Signs (Past 12 Hours) Vital Signs Temp Pulse Resp BP Pulse Ox O2 Del Method 05/10/24 20:20 36.4 C L 118 H 18 100/69 97 Room Air 05/10/24 15:33 36.6 C 93 H 18 92/63 L 97 Room Air 05/10/24 11:03 36.6 C 90 18 102/69 99 Room Air Laboratory Results 05/10/24 05/10/24 05/10/24 Range/Units 16:55 11:00 05:21 WBC (4.8-10.8) K/ul RBC (4.20-5.40) M/uL Hgb 8.4 L 8.4 L (12.0-16.0) g/dl Hct 26.8 L 26.4 L (37.0-47.0) % MCV (80.0-100.0) fL MCH (25.0-34.0) pg MCHC (32.0-36.0) g/dL RDW Std Deviation (36.4-46.3) fL RDW Coeff of Oscar (11.5-14.5) % Plt Count (130-400) K/uL MPV (9.4-12.4) fL Immature Gran % (Auto) % Neut % (Auto) % Lymph % (Auto) % [place] % (Auto) % Eos % (Auto) % Baso % (Auto) % Neut # (Auto) (1.40-6.50) K/uL Lymph # (Auto) (1.20-3.40) K/uL [place] # (Auto) (0.11-0.59) K/uL Eos # (Auto) (0.00-0.50) K/uL Baso # (Auto) (0.00-0.20) K/uL Immature Gran # (Auto) (0.01-0.20) K/uL Absolute Nucleated RBC (0.00-0.12) K/uL Nucleated RBC % (auto) % Polychromasia Ovalocytes Echinocytes Sodium (136-145) mmol/L Potassium (3.5-5.1) mmol/L Chloride (98-107) mmol/L Carbon Dioxide (21-32) mmol/L Anion Gap (3-11) BUN (6-23) mg/dl Creatinine (0.6-1.2) mg/dl Est Cr Clr Drug Dosing eGFR BUN/Creatinine Ratio (10-20) Glucose (70-99(Fasting)) mg/dl Lactate 1.7 (0.4-2.0) mmol/L Calcium (8.6-10.3) mg/dl Total Bilirubin (0.2-1.0) mg/dl AST (13-39) U/L ALT (7-52) U/L Alkaline Phosphatase (34-104) U/L Total Protein (6.0-8.3) gm/dl Albumin (3.4-5.0) gm/dl Globulin (2.5-4.0) gm/dl Albumin/Globulin Ratio (0.9-2) Lipase (11-82) U/L Procalcitonin (0-0.5) ng/ml Urine Color Urine Appearance (Clear) Urine pH (4.5-7.5) Ur Specific [place] (1.000-1.030) Urine Protein (Negative) Urine Glucose (UA) (Negative) Urine Ketones (Negative) Urine Blood (Negative) Urine Nitrite (Negative) Urine Bilirubin (Negative) Urine Urobilinogen (Negative) Ur Leukocyte Esterase (Negative) Nasal Screen MRSA (PCR) (Negative) Blood Type Antibody Screen Crossmatch 05/10/24 05/09/24 05/09/24 Range/Units 05:19 22:35 21:40 WBC 15.82 H (4.8-10.8) K/ul RBC 2.94 L (4.20-5.40) M/uL Hgb 8.1 L 8.0 L (12.0-16.0) g/dl Hct 24.8 L 24.7 L (37.0-47.0) % MCV 84.4 (80.0-100.0) fL MCH 27.6 (25.0-34.0) pg MCHC 32.7 (32.0-36.0) g/dL RDW Std Deviation 50.5 H (36.4-46.3) fL RDW Coeff of Oscar 16.8 H (11.5-14.5) % Plt Count 289 (130-400) K/uL MPV 10.3 (9.4-12.4) fL Immature Gran % (Auto) 0.8 % Neut % (Auto) 76.5 % Lymph % (Auto) 11.6 % [place] % (Auto) 10.4 % Eos % (Auto) 0.3 % Baso % (Auto) 0.4 % Neut # (Auto) 12.10 H (1.40-6.50) K/uL Lymph # (Auto) 1.83 (1.20-3.40) K/uL [place] # (Auto) 1.65 H (0.11-0.59) K/uL Eos # (Auto) 0.05 (0.00-0.50) K/uL Baso # (Auto) 0.06 (0.00-0.20) K/uL Immature Gran # (Auto) 0.13 (0.01-0.20) K/uL Absolute Nucleated RBC 0.07 (0.00-0.12) K/uL Nucleated RBC % (auto) 0.4 % Polychromasia Ovalocytes Echinocytes Sodium 137 (136-145) mmol/L Potassium 3.9 (3.5-5.1) mmol/L Chloride 108 H (98-107) mmol/L Carbon Dioxide 23 (21-32) mmol/L Anion Gap 6 (3-11) BUN 18 (6-23) mg/dl Creatinine 0.89 (0.6-1.2) mg/dl Est Cr Clr Drug Dosing 54.2 eGFR 67.15 BUN/Creatinine Ratio 20.2 H (10-20) Glucose 97 (70-99(Fasting)) mg/dl Lactate (0.4-2.0) mmol/L Calcium 9.6 (8.6-10.3) mg/dl Total Bilirubin 0.4 (0.2-1.0) mg/dl AST 28 (13-39) U/L ALT 6 L (7-52) U/L Alkaline Phosphatase 57 (34-104) U/L Total Protein 6.2 (6.0-8.3) gm/dl Albumin 2.6 L (3.4-5.0) gm/dl Globulin 3.6 (2.5-4.0) gm/dl Albumin/Globulin Ratio 0.7 L (0.9-2) Lipase (11-82) U/L Procalcitonin (0-0.5) ng/ml Urine Color Urine Appearance (Clear) Urine pH (4.5-7.5) Ur Specific [place] (1.000-1.030) Urine Protein (Negative) Urine Glucose (UA) (Negative) Urine Ketones (Negative) Urine Blood (Negative) Urine Nitrite (Negative) Urine Bilirubin (Negative) Urine Urobilinogen (Negative) Ur Leukocyte Esterase (Negative) Nasal Screen MRSA (PCR) Negative (Negative) Blood Type Antibody Screen Crossmatch 05/09/24 05/09/24 05/09/24 Range/Units 18:55 17:31 16:44 WBC (4.8-10.8) K/ul RBC (4.20-5.40) M/uL Hgb (12.0-16.0) g/dl Hct (37.0-47.0) % MCV (80.0-100.0) fL MCH (25.0-34.0) pg MCHC (32.0-36.0) g/dL RDW Std Deviation (36.4-46.3) fL RDW Coeff of Oscar (11.5-14.5) % Plt Count (130-400) K/uL MPV (9.4-12.4) fL Immature Gran % (Auto) % Neut % (Auto) % Lymph % (Auto) % [place] % (Auto) % Eos % (Auto) % Baso % (Auto) % Neut # (Auto) (1.40-6.50) K/uL Lymph # (Auto) (1.20-3.40) K/uL [place] # (Auto) (0.11-0.59) K/uL Eos # (Auto) (0.00-0.50) K/uL Baso # (Auto) (0.00-0.20) K/uL Immature Gran # (Auto) (0.01-0.20) K/uL Absolute Nucleated RBC (0.00-0.12) K/uL Nucleated RBC % (auto) % Polychromasia Ovalocytes Echinocytes Sodium (136-145) mmol/L Potassium (3.5-5.1) mmol/L Chloride (98-107) mmol/L Carbon Dioxide (21-32) mmol/L Anion Gap (3-11) BUN (6-23) mg/dl Creatinine (0.6-1.2) mg/dl Est Cr Clr Drug Dosing eGFR BUN/Creatinine Ratio (10-20) Glucose (70-99(Fasting)) mg/dl Lactate 2.6 H* 3.2 H* (0.4-2.0) mmol/L Calcium (8.6-10.3) mg/dl Total Bilirubin (0.2-1.0) mg/dl AST (13-39) U/L ALT (7-52) U/L Alkaline Phosphatase (34-104) U/L Total Protein (6.0-8.3) gm/dl Albumin (3.4-5.0) gm/dl Globulin (2.5-4.0) gm/dl Albumin/Globulin Ratio (0.9-2) Lipase (11-82) U/L Procalcitonin 0.49 (0-0.5) ng/ml Urine Color Yellow Urine Appearance Clear (Clear) Urine pH 5.0 (4.5-7.5) Ur Specific [place] > 1.045 H (1.000-1.030) Urine Protein Negative (Negative) Urine Glucose (UA) Negative (Negative) Urine Ketones Negative (Negative) Urine Blood Negative (Negative) Urine Nitrite Negative (Negative) Urine Bilirubin Negative (Negative) Urine Urobilinogen Negative (Negative) Ur Leukocyte Esterase Negative (Negative) Nasal Screen MRSA (PCR) (Negative) Blood Type A Positive Antibody Screen NEGATIVE Crossmatch See Detail 05/09/24 Range/Units 14:25 WBC 18.18 H (4.8-10.8) K/ul RBC 2.91 L (4.20-5.40) M/uL Hgb 7.8 L (12.0-16.0) g/dl Hct 24.6 L (37.0-47.0) % MCV 84.5 (80.0-100.0) fL MCH 26.8 (25.0-34.0) pg MCHC 31.7 L (32.0-36.0) g/dL RDW Std Deviation 52.8 H (36.4-46.3) fL RDW Coeff of Oscar 17.2 H (11.5-14.5) % Plt Count 360 (130-400) K/uL MPV 10.7 (9.4-12.4) fL Immature Gran % (Auto) 1.2 % Neut % (Auto) 80.3 % Lymph % (Auto) 10.5 % [place] % (Auto) 7.8 % Eos % (Auto) 0.0 % Baso % (Auto) 0.2 % Neut # (Auto) 14.60 H (1.40-6.50) K/uL Lymph # (Auto) 1.91 (1.20-3.40) K/uL [place] # (Auto) 1.42 H (0.11-0.59) K/uL Eos # (Auto) 0.00 (0.00-0.50) K/uL Baso # (Auto) 0.03 (0.00-0.20) K/uL Immature Gran # (Auto) 0.22 H (0.01-0.20) K/uL Absolute Nucleated RBC 0.04 (0.00-0.12) K/uL Nucleated RBC % (auto) 0.2 % Polychromasia 2+ Ovalocytes 1+ Echinocytes 1+ Sodium 134 L (136-145) mmol/L Potassium 4.2 (3.5-5.1) mmol/L Chloride 103 (98-107) mmol/L Carbon Dioxide 22 (21-32) mmol/L Anion Gap 9 (3-11) BUN 22 (6-23) mg/dl Creatinine 0.98 (0.6-1.2) mg/dl Est Cr Clr Drug Dosing Not Reportable eGFR 59.82 BUN/Creatinine Ratio 22.4 H (10-20) Glucose 140 H (70-99(Fasting)) mg/dl Lactate (0.4-2.0) mmol/L Calcium 10.5 H (8.6-10.3) mg/dl Total Bilirubin 0.6 (0.2-1.0) mg/dl AST 33 (13-39) U/L ALT 7 (7-52) U/L Alkaline Phosphatase 68 (34-104) U/L Total Protein 7.2 (6.0-8.3) gm/dl Albumin 3.1 L (3.4-5.0) gm/dl Globulin 4.1 H (2.5-4.0) gm/dl Albumin/Globulin Ratio 0.8 L (0.9-2) Lipase 7 L (11-82) U/L Procalcitonin (0-0.5) ng/ml Urine Color Urine Appearance (Clear) Urine pH (4.5-7.5) Ur Specific [place] (1.000-1.030) Urine Protein (Negative) Urine Glucose (UA) (Negative) Urine Ketones (Negative) Urine Blood (Negative) Urine Nitrite (Negative) Urine Bilirubin (Negative) Urine Urobilinogen (Negative) Ur Leukocyte Esterase (Negative) Nasal Screen MRSA (PCR) (Negative) Blood Type Antibody Screen Crossmatch Diagnostic Findings Abdomen/Pelvis CT 05/09/24 14:07 CT OF THE ABDOMEN AND PELVIS WITH CONTRAST CLINICAL HISTORY: Abdominal pain. COMPARISON STUDY: CT of the abdomen and pelvis March 28, 2024. TECHNIQUE: Following IV administration of 93 mL of Optiray, axial images of the abdomen and pelvis were obtained from the lung bases to the proximal femurs. Images were reviewed in the axial, sagittal, and coronal planes. IV contrast was administered without complication. Automated exposure control was utilized for the study. A dose lowering technique was utilized adhering to the principles of ALARA. CT DOSE: 702.18 mGy.cm FINDINGS: No pneumatosis, free air or portal venous gas is present. Several hypodense hepatic lesions favor cysts. There is no biliary or pancreatic ductal dilatation. Spleen, adrenal glands, left kidney and pancreas are unremarkable. A few suspected renal cysts are present. There is no hydronephrosis. 9 mm right renal calculus is noted. There are no ureteral calculi. There is no hydronephrosis. There is no evidence for a bowel obstruction. There is colonic diverticulosis without evidence for acute diverticulitis. The uterus is markedly enlarged and heterogeneous. The endometrium is markedly distended and contains enhancing material. Conglomerate parauterine enhancing tissue extends into the adnexa. In addition, there is extensive abdominal and pelvic lymphadenopathy. Index right retrocrural lymph node on image 86 of 357 measures 1.9 x 1.7 cm. Retroperitoneal lymphadenopathy encases the abdominal aorta and IVC. Index conglomerate left para-aortic brianne mass on image 154 measures 5.8 x 4.7 cm. Index left pelvic sidewall lymph node on image 241 measures 3.7 x 2.4 cm. A right pelvic sidewall lymph node on image 233 measures 2.7 x 2.5 cm. This lymphadenopathy has progressed since prior CT. Multiple small right retroperitoneal nodules measure up to 6 mm. Multiple suspected small omental/peritoneal implants measure up to 9 mm. IMPRESSION: 1. Enlarged uterus with markedly thickened, heterogeneous endometrium. Conglomerate parauterine enhancing tissue which extends into the adnexa. The findings are neoplastic and favor endometrial carcinoma. Gynecologic consultation is recommended. 2. Extensive retroperitoneal/retrocrural and pelvic lymphadenopathy consistent with brianne metastases. Suspected small omental/peritoneal implants and several small right retroperitoneal implants. 3. No evidence for a bowel obstruction. 4. 9 mm right renal calculus. No ureteral calculi. No hydronephrosis. ACT 112: Positive. There are findings on this exam that require communication between the performing entity and the patient following Patient Test Result Information Act ([place] Act 112) guidelines. Electronically signed by: Scot Bateman M.D. 05/09/2024 3:54 PM Pelvis Ultrasound 05/09/24 14:44 US pelvic complete HISTORY: 78 years-old Female vaginal bleeding acute vaginal bleeding with known endometrial lesion COMPARISON: CT of same day TECHNIQUE: Multiple real-time and static images of the deep pelvic structures were obtained transabdominally assessing grayscale appearance, color and spectral flow FINDINGS: Limited exam secondary to patient pain and discomfort. The uterus measures 14.1 x 7.6 x 12.3 cm and is heterogeneous with numerous uterine masses. The largest mass is within the right uterus measuring 6 cm. Endometrium measures approximately 4 cm and demonstrates internal flow. Ovaries are not diagnostically visualized. No significant free pelvic fluid. The adnex al/parauterine lesions are again noted, better seen on the CT study. IMPRESSION: 1. Limited exam as above. 2. Heterogeneous enlarged uterus with numerous masses including a large endometrial mass suggestive of neoplasm. Please refer to the CT abdomen and pelvis of same day for additional findings including the para-uterine lesions. Follow-up with gynecology is recommended. 3. Nonvisualization of the ovaries. ACT 112: Negative or not required by law. The above report was generated using voice recognition software. It may contain grammatical, syntax or spelling errors. Electronically signed by: Luis Aranda M.D. 05/09/2024 4:06 PM Chest X-Ray 05/09/24 16:35 INDICATION: Cough. TECHNIQUE: Frontal radiograph of the chest. COMPARISON: Radiograph from 03/20/2024. FINDINGS: Low inspiratory depth. Mild cardiomegaly. Pulmonary vasculature appear within normal limits. Chronic appearing interstitial lung markings, similar to prior. No infiltrate, pleural effusion or pneumothorax. No acute osseous abnormality evident. IMPRESSION: No acute cardiopulmonary process. Electronically signed by Niles Stafford 05-09-2024 5:30 PM PG Care Time/CCT Total # of Minutes Spent Total Time Spent with Patient: Total time spent is greater than 50% in coordination of care (as documented) at patient's floor/unit and/or counseling patient: I spent 100 minutes overall addressing this case: 15 min in medical data review/discussion with referring provider(s) and/or preparation for the visit 15 min in direct interaction with the patient/exam 40 min in Advance Care Planning/Goals of Care discussions as detailed above in note (must be >16min) 15 min in subsequent review and synthesis of assessment and plan 15 min communicating with other providers regarding the patient's case: nursing Advanced Care Planning 45207 Advanced Care Planning 30 Min 15579 Advanced Care Planning Additional 30 [place] [address] IN/OBS CONSULT LVL 4,60M (25 - SIGNIFICANT, SEPARATELY IDENTIFIABLE ) Patient Type New History Comprehensive Exam Comprehensive Medical Decision Making High Complexity Diagnoses Abdominal pain R10.9 Abdominal location: unspecified location Acute urinary retention R33.8 Metastatic cancer C79.9 Area of secondary neoplastic involvement: unspecified site Palliative care by specialist Z51.5 Discussion about advance care planning held with family member Z71.0 Post-menopausal bleeding N95.0 Additional Codes Advanced Care Planning - 64299 Advanced Care Planning 30 Min: 58781 Advanced Care Planning 30 Min ([id number]) Advanced Care Planning - 06322 Advanced Care Planning Additional 30 Min: 31610 Advanced Care Planning Additional 30 Min ([id number])
[2024-05-10] MEDS: NORETHINDRONE 5 MG TAB PO SCH (21:42)
[2024-05-11] MEDS ORDERED: MoRPHine SULFATE 2 MG/ML CARP IV PRN (10:42)
[2024-05-11] MEDS ORDERED: GLYCOPYRROLATE 0.2 MG/ML VIAL IV PRN (10:54)
[2024-05-11] MEDS ORDERED: ONDANSETRON INJ 2 MG/ML 2 ML VIAL IV PRN (10:54)
[2024-05-11] MEDS: oxyCODONE HCL IR 5 MG TAB (IMMEDIATE RELEASE) PO SCH (11:09)
--- NOTE | 2024-05-11 14:23 | Hospitalist Progress Note ---
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 Endometrial Mass Malignant neoplasm of endometrium with intraabdominal spread to lymph nodes and peritoneum Vaginal bleeding Anemia due to chronic blood loss Lactic Acidosis Possible Sepsis Possible Sepsis Pt with possible sepsis in setting of leukocytosis and tachycardia, CXR/Urine negative, received Zosyn in ED Empirically cover with IV rocephin until Blood cultures return Give IVF bolus x 1 now pt type and crossed, blood consent obtained, Blood consent was obtained from the patient (or patient delegate) as delegated by Dr. Brice. Risks and benefits were explained. All questions were answered, and the patient (or patient delegate) was offered the opportunity to discuss with attending physician and declined. Will give 1 unit of PRBC x 1 now given tachycardia, lactic acid Repeat H/H post tranfusion and q6-Remains stable Daughter open to discussion with palliative as she is understanding that the pro gnosis of her mothers cancer is poor and treatment at this point wound not improve QOL consult APPLE PACKING HEADER to determine if any pharmacologic options to help ease her bleeding from a symptomatic standpoint given her hx of DVT/PE Appreciate palliative care encounter and recommendation assistant spa manager is working on hospice placement Appreciate APPLE PACKING HEADER input and recommendation for possible further exploration and ex tensive procedure for the uterine mass Discussed with the daughter and also the palliative service- the daughter does not want her to go through any further exploration or management for the uterine mass She has been put for comfort care measures and likely to be transferred to a facility with hospice or home with hospice down the line This was again discussed with the daughter in presence of the patient Severe malnutrition Nutritional assessment Vascular dementia delirium precautions Poor Po Intake Unintentional weight loss, 16lbs in last 1.5 months recently started on mirtazapine, consult supervisor roller shop History of pulmonary embolism/DVT On Eliquis - this is currently on hold given vaginal bleeding CKD stage III stable cr Chronic HFpEF EF 55-60% on 03/21 Pt dry on exam Glaucoma Continue eyedrops Hyperlipidemia Statin Hypertension On lisinopril, hold 2/2 lower bp DVT prophylaxis Eliquis on hold, SCDS Disposition admit to PCU Full code - discussed with daughter, wishes are for full code based at this time given her mothers wishes and living will She will be transferred to medical floor Admission and Anticipated Discharge Date Admission Date: May 09, 2024 Subjective 05/10/2024 The patient was seen and examined in telemetry unit in presence of the family members She has been complaining of lower abdominal pain and also left inguinal area pain secondary to uterine mass with metastasis Still having vaginal bleeding and awaiting APPLE PACKING HEADER evaluation Pain is reasonably controlled 05/11/2024 The patient was seen and examined in telemetry unit in presence of the daughter She has been very drowsy today and remains extremely weak and lethargic Denies any significant symptoms otherwise Review of Systems Review of Systems: All systems reviewed and are unremarkable except as noted below Physical Exam Physical Exam: Sitting on a chair without any acute distress Constitutional: + ill appearing and + cachectic Eyes: PERRL, conjunctivae normal, anicteric sclerae ENMT: external ear and nose normal, oropharynx normal Neck: trachea midline, no thyromegaly Respiratory: no respiratory distress Auscultation: lungs clear to auscultation bilaterally Cardiovascular: Rate/Rhythm: regular rate and regular rhythm; not tachycardic Heart Sounds: normal S1 and normal S2; no murmur Extremities: no edema Gastrointestinal (Abdomen): Inspection/Auscultation: normal bowel sounds ( no acute arthritis involving any of the joint); abdomen not distended Percussion/Palpation: + abdomen tender ( lower quadrant and mainly on the left side) and abdomen soft Musculoskeletal: no acute arthritis involving any of the joint Neurologic: normal touch/pain/proprioception and moves all extremities; no focal motor deficits Lymphatic: no cervical or axillary lymphadenopathy Results & Data Results & Data Vital Signs (Past 12 Hours) Vital Signs Temp Pulse Resp BP Pulse Ox O2 Del Method 05/11/24 12:37 Room Air 05/11/24 07:00 36.9 C 100 H 18 110/68 99 Room Air 05/11/24 05:01 36.6 C 103 H 18 112/78 97 Room Air Laboratory Results Short CBC 05/10/24 Range/Units 16:55 Hgb 8.4 L (12.0-16.0) g/dl Hct 26.8 L (37.0-47.0) % Medications Administered Current Inpatient Medications Acetaminophen (Acetaminophen 325 Mg Tab) 650 mg PO QID [facility] Stop: 06/08/24 20:59 Last Admin: 05/11/24 13:21 Dose: 650 mg Acetazolamide (Acetazolamide 500 Mg Capcr) 500 mg PO BID@0900,1700 [facility] Stop: 06/08/24 20:59 Last Admin: 05/11/24 08:26 Dose: 500 mg Brimonidine Tartrate (Brimonidine Tartrate 0.2% 5ml) 1 drops OPB BID [facility] Stop: 06/08/24 20:59 Last Admin: 05/11/24 08:26 Dose: 1 drops Dorzolamide HCl (Dorzolamide Hcl 2% Oph Soln 10 Ml Btl) 1 drops OPB TID [facility] Stop: 06/08/24 20:59 Last Admin: 05/11/24 13:21 Dose: 1 drops Glycopyrrolate (Glycopyrrolate 0.2 Mg/Ml Vial) 0.4 mg IV Q4H PRN PRN Reason: Rattling Secretions or Pulm Congestion Stop: 06/10/24 10:53 Ceftriaxone Sodium (Rocephin) 2,000 mg in 50 mls @ 100 mls/hr IV Q24H [facility] Stop: 05/19/24 21:59 Last Infusion: 05/10/24 22:13 Dose: Infused Lorazepam (Lorazepam 2 Mg/1 Ml Vial) 1 mg IV Q4H PRN PRN Reason: Anxiety/Agitation Stop: 06/10/24 10:53 Magnesium Chloride (Magnesium Chloride W/Calcium 64mg Delayed Rel Tab) 64 mg PO BID [facility] Stop: 06/08/24 20:59 Last Admin: 05/11/24 08:26 Dose: 64 mg Mirtazapine (Mirtazapine Tab 15 Mg Tab) 7.5 mg PO HS [facility] Stop: 06/08/24 20:59 Last Admin: 05/10/24 21:42 Dose: 7.5 mg Morphine Sulfate (Morphine Sulfate 2 Mg/Ml Carp) 4 mg IV Q2H PRN PRN Reason: terminal dyspnea,severe pain Stop: 05/25/24 10:53 Morphine Sulfate (Morphine Sulfate 2 Mg/Ml Carp) 3 mg IV Q2H PRN PRN Reason: pain or dyspnea,moaning Stop: 05/25/24 10:41 Norethindrone (Norethindrone 5 Mg Tab) 5 mg PO BID [facility] Stop: 06/09/24 20:59 Last Admin: 05/11/24 08:26 Dose: 5 mg Ondansetron HCl (Ondansetron Inj 2 Mg/Ml 2 Ml Vial) 4 mg IV Q6H PRN PRN Reason: Nausea Stop: 06/08/24 20:00 Ondansetron HCl (Ondansetron Inj 2 Mg/Ml 2 Ml Vial) 4 mg IV Q4H PRN PRN Reason: Nausea &/or Vomiting Stop: 06/10/24 10:53 Oxycodone HCl (Oxycodone Hcl Ir 5 Mg Tab (Immediate Release)) 5 mg PO Q6H [facility] Stop: 05/25/24 10:44 Last Admin: 05/11/24 11:09 Dose: 5 mg Pantoprazole Sodium (Pantoprazole 40 Mg Tab) 40 mg PO DAILY [facility] Stop: 06/09/24 08:59 Last Admin: 05/11/24 08:26 Dose: 40 mg Rosuvastatin Calcium (Rosuvastatin Calcium 10 Mg Tab) 10 mg PO DAILY [facility] Stop: 06/09/24 08:59 Last Admin: 05/11/24 08:26 Dose: 10 mg Timolol Maleate (Timolol Maleate 0.5% Op Soln 5 Ml Btl) 1 drops OPB BID [facility] Stop: 06/08/24 20:59 Last Admin: 05/11/24 08:26 Dose: 1 drops Vitamin D (Cholecalciferol 25 Mcg (1000 Units) Tab) 25 mcg PO DAILY [facility] Stop: 06/09/24 08:59 Last Admin: 05/11/24 08:26 Dose: 25 mcg
[2024-05-11] MEDS: MoRPHine SULFATE 2 MG/ML CARP IV PRN ×2 (15:07→18:18)
[2024-05-11] MEDS: LORazepam 2 MG/1 ML VIAL IV PRN (18:36)
[2024-05-11] MEDS ORDERED: NORETHINDRONE 5 MG TAB PO SCH (21:00)
[2024-05-12] MEDS: D5W AND NSS 1,000 ML IV SCH (10:54)
--- NOTE | 2024-05-12 14:43 | Hospitalist Progress Note ---
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 Comfort measures only She has been getting adequate pain and anxiety medications Daughter wanted to have some IV fluid until the family members come and converse with her Medications have been ordered and advised to have the medicine as long as she cannot take Discussed with the daughter in detail Endometrial Mass Malignant neoplasm of endometrium with intraabdominal spread to lymph nodes and peritoneum Vaginal bleeding Anemia due to chronic blood loss Lactic Acidosis Possible Sepsis Possible Sepsis Pt with possible sepsis in setting of leukocytosis and tachycardia, CXR/Urine negative, received Zosyn in ED Empirically cover with IV rocephin until Blood cultures return Give IVF bolus x 1 now pt type and crossed, blood consent obtained, Blood consent was obtained from the patient (or patient delegate) as delegated by Dr. Brice. Risks and benefits were explained. All questions were answered, and the patient (or patient delegate) was offered the opportunity to discuss with attending physician and declined. Will give 1 unit of PRBC x 1 now given tachycardia, lactic acid Repeat H/H post tranfusion and q6-Remains stable Daughter open to discussion with palliative as she is understanding that the prognosis of her mothers cancer is poor and treatment at this point wound not improve QOL consult PIGMENT WEIGHER to determine if any pharmacologic options to help ease her bleeding from a symptomatic standpoint given her hx of DVT/PE Appreciate palliative care encounter and recommendation affiliate manager is working on hospice placement Appreciate PIGMENT WEIGHER input and recommendation for possible further exploration and extensive procedure for the uterine mass Discussed with the daughter and also the palliative service- the daughter does not want her to go through any further exploration or management for the uterine mass She has been put for comfort care measures and likely to be transferred to a facility with hospice or home with hospice down the line This was again discussed with the daughter in presence of the patient Severe malnutrition Nutritional assessment Vascular dementia delirium precautions Poor Po Intake Unintentional weight loss, 16lbs in last 1.5 months recently started on mirtazapine, consult mobile home servicer History of pulmonary embolism/DVT On Eliquis - this is currently on hold given vaginal bleeding CKD stage III stable cr Chronic HFpEF EF 55-60% on 03/21 Pt dry on exam Glaucoma Continue eyedrops Hyperlipidemia Statin Hypertension On lisinopril, hold 2/2 lower bp DVT prophylaxis Eliquis on hold, SCDS Disposition admit to PCU Full code - discussed with daughter, wishes are for full code based at this time given her mothers wishes and living will She will be transferred to medical floor Admission and Anticipated Discharge Date Admission Date: May 09, 2024 Subjective 05/10/2024 The patient was seen and examined in telemetry unit in presence of the family members She has been complaining of lower abdominal pain and also left inguinal area pain secondary to uterine mass with metastasis Still having vaginal bleeding and awaiting PIGMENT WEIGHER evaluation Pain is reasonably controlled 05/11/2024 The patient was seen and examined in telemetry unit in presence of the daughter She has been very drowsy today and remains extremely weak and lethargic Denies any significant symptoms otherwise 05/12/2024 The patient was seen and examined in medical floor in presence of the daughter She has been minimally responsive and does not seems to be in any distress The daughter wanted to have some IV fluid if possible until the family members come and see her Review of Systems Review of Systems: All systems reviewed and are unremarkable except as noted below Physical Exam Physical Exam: Lying in bed without much response on commands and seems to be very weak and lethargic Constitutional: + ill appearing and + cachectic Eyes: PERRL, conjunctivae normal, anicteric sclerae ENMT: external ear and nose normal, oropharynx normal Neck: trachea midline, no thyromegaly Respiratory: no respiratory distress Auscultation: lungs clear to auscultation bilaterally Cardiovascular: Rate/Rhythm: regular rate and regular rhythm; not tachycardic Heart Sounds: normal S1 and normal S2; no murmur Extremities: no edema Gastrointestinal (Abdomen): Inspection/Auscultation: normal bowel sounds ( no acute arthritis involving any of the joint); abdomen not distended Percussion/Palpation: + abdomen tender ( lower quadrant and mainly on the left side) and abdomen soft Neurologic: normal touch/pain/proprioception and moves all extremities; no focal motor deficits Lymphatic: no cervical or axillary lymphadenopathy Results & Data Results & Data Medications Administered Current Inpatient Medications Acetazolamide (Acetazolamide 500 Mg Capcr) 500 mg PO BID@0900,1700 [facility] Stop: 06/08/24 20:59 Last Admin: 05/12/24 08:37 Dose: Not Given Glycopyrrolate (Glycopyrrolate 0.2 Mg/Ml Vial) 0.4 mg IV Q4H PRN PRN Reason: Rattling Secretions or Pulm Congestion Stop: 06/10/24 10:53 Dextrose/Sodium Chloride (D5w And Nss) 1,000 mls @ 80 mls/hr IV .[id number] [facility] Stop: 05/13/24 10:44 Last Admin: 05/12/24 10:54 Dose: 80 mls/hr Lorazepam (Lorazepam 2 Mg/1 Ml Vial) 1 mg IV Q4H PRN PRN Reason: Anxiety/Agitation Stop: 06/10/24 10:53 Last Admin: 05/12/24 10:01 Dose: 1 mg Magnesium Chloride (Magnesium Chloride W/Calcium 64mg Delayed Rel Tab) 64 mg PO BID [facility] Stop: 06/08/24 20:59 Last Admin: 05/12/24 08:37 Dose: Not Given Mirtazapine (Mirtazapine Tab 15 Mg Tab) 7.5 mg PO HS [facility] Stop: 06/08/24 20:59 Last Admin: 05/11/24 20:12 Dose: Not Given Morphine Sulfate (Morphine Sulfate 2 Mg/Ml Carp) 4 mg IV Q2H PRN PRN Reason: terminal dyspnea,severe pain Stop: 05/25/24 10:53 Last Admin: 05/12/24 13:49 Dose: 4 mg Morphine Sulfate (Morphine Sulfate 2 Mg/Ml Carp) 3 mg IV Q2H PRN PRN Reason: pain or dyspnea,moaning Stop: 05/25/24 10:41 Last Admin: 05/11/24 15:07 Dose: 3 mg Ondansetron HCl (Ondansetron Inj 2 Mg/Ml 2 Ml Vial) 4 mg IV Q4H PRN PRN Reason: Nausea &/or Vomiting Stop: 06/10/24 10:53 Oxycodone HCl (Oxycodone Hcl Ir 5 Mg Tab (Immediate Release)) 5 mg PO Q6H [facility] Stop: 05/25/24 10:44 Last Admin: 05/12/24 11:21 Dose: Not Given
--- NOTE | 2024-05-13 11:13 | Hospitalist Progress Note ---
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 Comfort measures only She has been getting adequate pain and anxiety medications Daughter wanted to have some IV fluid until the family members come and converse with her Medications have been ordered and advised to have the medicine as long as she cannot take Discussed with the daughter in detail Remains comfortable and does not seems to be in any distress Will continue current pain management as planned Endometrial Mass Malignant neoplasm of endometrium with intraabdominal spread to lymph nodes and peritoneum Vaginal bleeding Anemia due to chronic blood loss Lactic Acidosis Possible Sepsis Possible Sepsis Pt with possible sepsis in setting of leukocytosis and tachycardia, CXR/Urine negative, received Zosyn in ED Empirically cover with IV rocephin until Blood cultures return Give IVF bolus x 1 now pt type and crossed, blood consent obtained, Blood consent was obtained from the patient (or patient delegate) as delegated by Dr. Brice. Risks and benefits were explained. All questions were answered, and the patient (or patient delegate) was offered the opportunity to discuss with attending physician and declined. Will give 1 unit of PRBC x 1 now given tachycardia, lactic acid Repeat H/H post tranfusion and q6-Remains stable Daughter open to discussion with palliative as she is understanding that the prognosis of her mothers cancer is poor and treatment at this point wound not improve QOL consult RESEARCH NUTRITIONIST to determine if any pharmacologic options to help ease her bleeding from a symptomatic standpoint given her hx of DVT/PE Appreciate palliative care encounter and recommendation dairy department manager is working on hospice placement Appreciate RESEARCH NUTRITIONIST input and recommendation for possible further exploration and extensive procedure for the uterine mass Discussed with the daughter and also the palliative service- the daughter does not want her to go through any further exploration or management for the uterine mass She has been put for comfort care measures and likely to be transferred to a facility with hospice or home with hospice down the line This was again discussed with the daughter in presence of the patient Severe malnutrition Nutritional assessment Vascular dementia delirium precautions Poor Po Intake Unintentional weight loss, 16lbs in last 1.5 months recently started on mirtazapine, consult furniture manager History of pulmonary embolism/DVT On Eliquis - this is currently on hold given vaginal bleeding CKD stage III stable cr Chronic HFpEF EF 55-60% on 03/21 Pt dry on exam Glaucoma Continue eyedrops Hyperlipidemia Statin Hypertension On lisinopril, hold 2/2 lower bp DVT prophylaxis Eliquis on hold, SCDS Disposition admit to PCU Full code - discussed with daughter, wishes are for full code based at this time given her mothers wishes and living will She will be transferred to medical floor Admission and Anticipated Discharge Date Admission Date: May 09, 2024 Subjective 05/10/2024 The patient was seen and examined in telemetry unit in presence of the family members She has been complaining of lower abdominal pain and also left inguinal area pa in secondary to uterine mass with metastasis Still having vaginal bleeding and awaiting RESEARCH NUTRITIONIST evaluation Pain is reasonably controlled 05/11/2024 The patient was seen and examined in telemetry unit in presence of the daughter She has been very drowsy today and remains extremely weak and lethargic Denies any significant symptoms otherwise 05/12/2024 The patient was seen and examined in medical floor in presence of the daughter She has been minimally responsive and does not seems to be in any distress The daughter wanted to have some IV fluid if possible until the family members come and see her - 05/13/2024 The patient was seen and examined in medical floor She has been stable and remains comfortable Has not been communicating but opening eyes when asked Review of Systems Review of Systems: Unobtainable due to cognitive status Physical Exam Physical Exam: Lying in bed without much response on commands and seems to be very weak and lethargic Constitutional: + ill appearing and + cachectic Eyes: PERRL, conjunctivae normal, anicteric sclerae ENMT: external ear and nose normal, oropharynx normal Neck: trachea midline, no thyromegaly Respiratory: no respiratory distress Auscultation: lungs clear to auscultation bilaterally Cardiovascular: Rate/Rhythm: regular rate and regular rhythm; not tachycardic Heart Sounds: normal S1 and normal S2; no murmur Extremities: no edema Gastrointestinal (Abdomen): Inspection/Auscultation: normal bowel sounds ( no acute arthritis involving any of the joint); abdomen not distended Percussion/Palpation: + abdomen tender ( lower quadrant and mainly on the left side) and abdomen soft Neurologic: normal touch/pain/proprioception and moves all extremities; no focal motor deficits Lymphatic: no cervical or axillary lymphadenopathy Results & Data Results & Data Vital Signs (Past 12 Hours) Vital Signs Temp Pulse Resp BP Pulse Ox O2 Del Method 05/13/24 07:47 37.0 C 114 H 16 102/72 94 Room Air Medications Administered Current Inpatient Medications Acetazolamide (Acetazolamide 500 Mg Capcr) 500 mg PO BID@0900,1700 [facility] Stop: 06/08/24 20:59 Last Admin: 05/13/24 08:01 Dose: Not Given Glycopyrrolate (Glycopyrrolate 0.2 Mg/Ml Vial) 0.4 mg IV Q4H PRN PRN Reason: Rattling Secretions or Pulm Congestion Stop: 06/10/24 10:53 Lorazepam (Lorazepam 2 Mg/1 Ml Vial) 1 mg IV Q4H PRN PRN Reason: Anxiety/Agitation Stop: 06/10/24 10:53 Last Admin: 05/12/24 10:01 Dose: 1 mg Magnesium Chloride (Magnesium Chloride W/Calcium 64mg Delayed Rel Tab) 64 mg PO BID [facility] Stop: 06/08/24 20:59 Last Admin: 05/13/24 08:02 Dose: Not Given Mirtazapine (Mirtazapine Tab 15 Mg Tab) 7.5 mg PO HS [facility] Stop: 06/08/24 20:59 Last Admin: 05/12/24 19:32 Dose: Not Given Morphine Sulfate (Morphine Sulfate 2 Mg/Ml Carp) 4 mg IV Q2H PRN PRN Reason: terminal dyspnea,severe pain Stop: 05/25/24 10:53 Last Admin: 05/13/24 03:18 Dose: 4 mg Morphine Sulfate (Morphine Sulfate 2 Mg/Ml Carp) 3 mg IV Q2H PRN PRN Reason: pain or dyspnea,moaning Stop: 05/25/24 10:41 Last Admin: 05/11/24 15:07 Dose: 3 mg Ondansetron HCl (Ondansetron Inj 2 Mg/Ml 2 Ml Vial) 4 mg IV Q4H PRN PRN Reason: Nausea &/or Vomiting Stop: 06/10/24 10:53 Oxycodone HCl (Oxycodone Hcl Ir 5 Mg Tab (Immediate Release)) 5 mg PO Q6H [facility] Stop: 05/25/24 10:44 Last Admin: 05/13/24 05:55 Dose: Not Given
[2024-05-13] MEDS: D5W AND NSS 1,000 ML IV SCH (17:52)
[2024-05-14 07:30] VITALS: BP 92/62; PULSE 99; RESP 14; TEMP 97.9; O2SAT 98
--- NOTE | 2024-05-14 12:03 | Hospitalist Progress Note ---
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 Comfort measures only She has been getting adequate pain and anxiety medications Daughter wanted to have some IV fluid until the family members come and converse with her Medications have been ordered and advised to have the medicine as long as she cannot take Discussed with the daughter in detail Remains comfortable and does not seems to be in any distress Will continue current pain management as planned No issues overnight and remains stable without any pain and/or distress Will continue with small dose of intravenous fluid and avoid family members from [place] to come and see her if possible Endometrial Mass Malignant neoplasm of endometrium with intraabdominal spread to lymph nodes and peritoneum Vaginal bleeding Anemia due to chronic blood loss Lactic Acidosis Possible Sepsis Possible Sepsis Pt with possible sepsis in setting of leukocytosis and tachycardia, CXR/Urine negative, received Zosyn in ED Empirically cover with IV rocephin until Blood cultures return Give IVF bolus x 1 now pt type and crossed, blood consent obtained, Blood consent was obtained from the patient (or patient delegate) as delegated by Dr. Brice. Risks and benefits were explained. All questions were answered, and the patient (or patient delegate) was offered the opportunity to discuss with attending physician and declined. Will give 1 unit of PRBC x 1 now given tachycardia, lactic acid Repeat H/H post tranfusion and q6-Remains stable Daughter open to discussion with palliative as she is understanding that the prognosis of her mothers cancer is poor and treatment at this point wound not improve QOL consult KILN LABOURER to determine if any pharmacologic options to help ease her bleeding from a symptomatic standpoint given her hx of DVT/PE Appreciate palliative care encounter and recommendation manager plan is working on hospice placement Appreciate KILN LABOURER input and recommendation for possible further exploration and extensive procedure for the uterine mass Discussed with the daughter and also the palliative service- the daughter does not want her to go through any further exploration or management for the uterine mass She has been put for comfort care measures and likely to be transferred to a facility with hospice or home with hospice down the line This was again discussed with the daughter in presence of the patient Severe malnutrition Nutritional assessment Vascular dementia delirium precautions Poor Po Intake Unintentional weight loss, 16lbs in last 1.5 months recently started on mirtazapine, consult power transmission engineer History of pulmonary embolism/DVT On Eliquis - this is currently on hold given vaginal bleeding CKD stage III stable cr Chronic HFpEF EF 55-60% on 03/21 Pt dry on exam Glaucoma Continue eyedrops Hyperlipidemia Statin Hypertension On lisinopril, hold / lower bp DVT prophylaxis Eliquis on hold, SCDS Disposition admit to PCU Full code - discussed with daughter, wishes are for full code based at this time given her mothers wishes and living will She will be transferred to medical floor Admission and Anticipated Discharge Date Admission Date: May 09, 2024 Subjective 05/10/2024 The patient was seen and examined in telemetry unit in presence of the family members She has been complaining of lower abdominal pain and also left inguinal area pain secondary to uterine mass with metastasis Still having vaginal bleeding and awaiting KILN LABOURER evaluation Pain is reasonably controlled 05/11/2024 The patient was seen and examined in telemetry unit in presence of the daughter She has been very drowsy today and remains extremely weak and lethargic Denies any significant symptoms otherwise 05/12/2024 The patient was seen and examined in medical floor in presence of the daughter She has been minimally responsive and does not seems to be in any distress The daughter wanted to have some IV fluid if possible until the family members come and see her - 05/13/2024 The patient was seen and examined in medical floor She has been stable and remains comfortable Has not been communicating but opening eyes when asked 05/14/2024 The patient was seen and examined in medical floor She remains stable and only moans whenever she is asked something Review of Systems Review of Systems: All systems reviewed and are unremarkable except as noted below Physical Exam Physical Exam: Lying in bed without much response on commands and seems to be very weak and lethargic Constitutional: + ill appearing and + cachectic Eyes: PERRL, conjunctivae normal, anicteric sclerae ENMT: external ear and nose normal, oropharynx normal Neck: trachea midline, no thyromegaly Respiratory: no respiratory distress Auscultation: lungs clear to auscultation bilaterally Cardiovascular: Rate/Rhythm: regular rate and regular rhythm; not tachycardic Heart Sounds: normal S1 and normal S2; no murmur Extremities: no edema Gastrointestinal (Abdomen): Inspection/Auscultation: normal bowel sounds ( no acute arthritis involving any of the joint); abdomen not distended Percussion/Palpation: + abdomen tender ( lower quadrant and mainly on the left side) and abdomen soft Neurologic: normal touch/pain/proprioception and moves all extremities; no focal motor deficits Lymphatic: no cervical or axillary lymphadenopathy Results & Data Results & Data Vital Signs (Past 12 Hours) Vital Signs Temp Pulse Resp BP Pulse Ox O2 Del Method 05/14/24 08:00 Room Air 05/14/24 07:28 36.6 C 99 H 14 92/62 L 98 Room Air Medications Administered Current Inpatient Medications Acetazolamide (Acetazolamide 500 Mg Capcr) 500 mg PO BID@0900,1700 [facility] Stop: 06/08/24 20:59 Last Admin: 05/14/24 08:00 Dose: Not Given Glycopyrrolate (Glycopyrrolate 0.2 Mg/Ml Vial) 0.4 mg IV Q4H PRN PRN Reason: Rattling Secretions or Pulm Congestion Stop: 06/10/24 10:53 Dextrose/Sodium Chloride (D5w And Nss) 1,000 mls @ 50 mls/hr IV .Q20H NAIDA Stop: 05/14/24 17:14 Last Admin: 05/13/24 17:52 Dose: 50 mls/hr Lorazepam (Lorazepam 2 Mg/1 Ml Vial) 1 mg IV Q4H PRN PRN Reason: Anxiety/Agitation Stop: 06/10/24 10:53 Last Admin: 05/14/24 06:35 Dose: 1 mg Magnesium Chloride (Magnesium Chloride W/Calcium 64mg Delayed Rel Tab) 64 mg PO BID NAIDA Stop: 06/08/24 20:59 Last Admin: 05/14/24 08:01 Dose: Not Given Mirtazapine (Mirtazapine Tab 15 Mg Tab) 7.5 mg PO HS NAIDA Stop: 06/08/24 20:59 Last Admin: 05/13/24 20:34 Dose: Not Given Morphine Sulfate (Morphine Sulfate 2 Mg/Ml Carp) 4 mg IV Q2H PRN PRN Reason: terminal dyspnea,severe pain Stop: 05/25/24 10:53 Last Admin: 05/13/24 15:22 Dose: 4 mg Morphine Sulfate (Morphine Sulfate 2 Mg/Ml Carp) 3 mg IV Q2H PRN PRN Reason: pain or dyspnea,moaning Stop: 05/25/24 10:41 Last Admin: 05/14/24 04:19 Dose: 3 mg Ondansetron HCl (Ondansetron Inj 2 Mg/Ml 2 Ml Vial) 4 mg IV Q4H PRN PRN Reason: Nausea &/or Vomiting Stop: 06/10/24 10:53 Oxycodone HCl (Oxycodone Hcl Ir 5 Mg Tab (Immediate Release)) 5 mg PO Q6H NAIDA Stop: 05/25/24 10:44 Last Admin: 05/14/24 05:42 Dose: Not Given
--- NOTE | 2024-05-15 12:06 | Hospitalist Progress Note ---
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 Comfort measures only She has been getting adequate pain and anxiety medications Daughter wanted to have some IV fluid until the family members come and converse with her Medications have been ordered and advised to have the medicine as long as she cannot take Discussed with the daughter in detail Remains comfortable and does not seems to be in any distress Will continue current pain management as planned No issues overnight and remains stable without any pain and/or distress Will continue with small dose of intravenous fluid and avoid family members from [place] to come and see her if possible Resting in bed comfortably and not been communicating Endometrial Mass Malignant neoplasm of endometrium with intraabdominal spread to lymph nodes and peritoneum Vaginal bleeding Anemia due to chronic blood loss Lactic Acidosis Possible Sepsis Possible Sepsis Pt with possible sepsis in setting of leukocytosis and tachycardia, CXR/Urine negative, received Zosyn in ED Empirically cover with IV rocephin until Blood cultures return Give IVF bolus x 1 now pt type and crossed, blood consent obtained, Blood consent was obtained from the patient (or patient delegate) as delegated by Dr. Brice. Risks and benefits were explained. All questions were answered, and the patient (or patient delega te) was offered the opportunity to discuss with attending physician and declined. Will give 1 unit of PRBC x 1 now given tachycardia, lactic acid Repeat H/H post tranfusion and q6-Remains stable Daughter open to discussion with palliative as she is understanding that the prognosis of her mothers cancer is poor and treatment at this point wound not improve QOL consult REVENUE AUDIT CLERK to determine if any pharmacologic options to help ease her bleeding from a symptomatic standpoint given her hx of DVT/PE Appreciate palliative care encounter and recommendation phone manager is working on hospice placement Appreciate REVENUE AUDIT CLERK input and recommendation for possible further exploration and extensive procedure for the uterine mass Discussed with the daughter and also the palliative service- the daughter does not want her to go through any further exploration or management for the uterine mass She has been put for comfort care measures and likely to be transferred to a facility with hospice or home with hospice down the line This was again discussed with the daughter in presence of the patient Severe malnutrition Nutritional assessment Vascular dementia delirium precautions Poor Po Intake Unintentional weight loss, 16lbs in last 1.5 months recently started on mirtazapine, consult hyperion administrator History of pulmonary embolism/DVT On Eliquis - this is currently on hold given vaginal bleeding CKD stage III stable cr Chronic HFpEF EF 55-60% on 03/21 Pt dry on exam Glaucoma Continue eyedrops Hyperlipidemia Statin Hypertension On lisinopril, hold 2/2 lower bp DVT prophylaxis Eliquis on hold, SCDS Disposition admit to PCU Full code - discussed with daughter, wishes are for full code based at this time given her mothers wishes and living will She will be transferred to medical floor Admission and Anticipated Discharge Date Admission Date: May 09, 2024 Subjective 05/10/2024 The patient was seen and examined in telemetry unit in presence of the family members She has been complaining of lower abdominal pain and also left inguinal area pain secondary to uterine mass with metastasis Still having vaginal bleeding and awaiting REVENUE AUDIT CLERK evaluation Pain is reasonably controlled 05/11/2024 The patient was seen and examined in telemetry unit in presence of the daughter She has been very drowsy today and remains extremely weak and lethargic Denies any significant symptoms otherwise 05/12/2024 The patient was seen and examined in medical floor in presence of the daughter She has been minimally responsive and does not seems to be in any distress The daughter wanted to have some IV fluid if possible until the family members come and see her - 05/13/2024 The patient was seen and examined in medical floor She has been stable and remains comfortable Has not been communicating but opening eyes when asked 05/14/2024 The patient was seen and examined in medical floor She remains stable and only moans whenever she is asked something 05/15/2024 The patient was seen and examined in medical floor She remains comfortable Review of Systems Review of Systems: All systems reviewed and are unremarkable except as noted below Physical Exam Physical Exam: lying in bed comfortably Constitutional: + ill appearing and + cachectic Eyes: PERRL, conjunctivae normal, anicteric sclerae ENMT: external ear and nose normal, oropharynx normal Neck: trachea midline, no thyromegaly Respiratory: no respiratory distress Auscultation: lungs clear to auscultation bilaterally Cardiovascular: Rate/Rhythm: regular rate and regular rhythm; not tachycardic Heart Sounds: normal S1 and normal S2; no murmur Extremities: no edema Gastrointestinal (Abdomen): Inspection/Auscultation: normal bowel sounds ( no acute arthritis involving any of the joint); abdomen not distended Percussion/Palpation: + abdomen tender ( lower quadrant and mainly on the left side) and abdomen soft Neurologic: not communicating Lymphatic: no cervical or axillary lymphadenopathy
[2024-05-16] MEDS ORDERED: MoRPHine SULFATE 2 MG/ML CARP IV PRN (12:58)
--- NOTE | 2024-05-16 13:02 | Palliative Care Progress Note ---
Date of Service May 16, 2024 Assessment & Plan (1) Cancer related pain: (2) Dyspnea and respiratory abnormalities: (3) Palliative care by specialist: (4) Need for comfort care: (5) Metastatic cancer: (6) Vascular dementia of acute onset with behavioral disturbance: (7) Endometrial mass: Plan Morphine 3 and 4mg ordered for q30min and q1h prn respectively I have stopped her PO meds, she is no longer taking PO and unable Continue ADMINISTRATOR PESTICIDE TS 40min Thank you for allowing us to participate in the ongoing care of this patient. Please page with any additional concerns. Archie Adams DNP Director, Palliative Medicine Admission and Anticipated Discharge Date Admission Date: May 09, 2024 Oly Dumont is in bed, furrowed brow, moaning +AMS, lethargic/somnolent, does not open eyes to verbal no family present but belonging noted in room mild inc resp rate no longer taking PO, all PO meds now being held Review of Systems Review of Systems: Unobtainable due to reduced consciousness Physical Exam Constitutional: + ill appearing, + altered mental status , + physical limitations, + frail appearing, + in distress and + lethargic Eyes: + eyes dysmorphic ENMT: oral mucosa sl dry Neck: normal visual inspection and trachea midline Thyroid: normal thyroid Respiratory: + labored breathing Cardiovascular: Rate/Rhythm: + tachycardic and + irregularly irregular Gastrointestinal (Abdomen): Inspection/Auscultation: + abdomen distended (firmer) Percussion/Palpation: + abdomen tender and + guarding Musculoskeletal: gen weakness Skin: + turgor decreased pale, cool Neurologic: + obtunded grimacing furrowed brow moaning at times wincing with abd exam Results & Data Vital Signs (Past 12 Hours) Vital Signs O2 Del Method 05/16/24 07:34 Room Air PG Care Time/CCT Total # of Minutes Spent Total Time Spent with Patient: Total time spent is greater than 50% in coordination of care (as documented) at patient's floor/unit and/or counseling patient: Coding [place] [address] SUB INP/OBS CARE 2/35MIN Patient Type Established History Comprehensive Exam Comprehensive Medical Decision Making High Complexity Diagnoses Cancer related pain G89.3 Dyspnea and respiratory abnormalities R06.00; R06.89 Palliative care by specialist Z51.5 Need for comfort care Metastatic cancer C79.9 Area of secondary neoplastic involvement: unspecified site 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
[2024-05-16] MEDS: MoRPHine SULFATE 2 MG/ML CARP IV PRN (14:50)
--- NOTE | 2024-05-16 14:58 | Hospitalist Progress Note ---
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 Comfort measures only She has been getting adequate pain and anxiety medications Daughter wanted to have some IV fluid until the family members come and converse with her Medications have been ordered and advised to have the medicine as long as she cannot take Discussed with the daughter in detail Remains comfortable and does not seems to be in any distress Will continue current pain management as planned No issues overnight and remains stable without any pain and/or distress Will continue with small dose of intravenous fluid and avoid family members from [place] to come and see her if possible Resting in bed comfortably and not been communicating Endometrial Mass Malignant neoplasm of endometrium with intraabdominal spread to lymph nodes and peritoneum Vaginal bleeding Anemia due to chronic blood loss Lactic Acidosis Possible Sepsis Possible Sepsis Pt with possible sepsis in setting of leukocytosis and tachycardia, CXR/Urine negative, received Zosyn in ED Empirically cover with IV rocephin until Blood cultures return Give IVF bolus x 1 now pt type and crossed, blood consent obtained, Blood consent was obtained from the patient (or patient delegate) as delegated by Dr. Brice. Risks and benefits were explained. All questions were answered, and the patient (or patient delega te) was offered the opportunity to discuss with attending physician and declined. Will give 1 unit of PRBC x 1 now given tachycardia, lactic acid Repeat H/H post tranfusion and q6-Remains stable Daughter open to discussion with palliative as she is understanding that the prognosis of her mothers cancer is poor and treatment at this point wound not improve QOL consult WASH OIL PUMP OPERATOR to determine if any pharmacologic options to help ease her bleeding from a symptomatic standpoint given her hx of DVT/PE Appreciate palliative care encounter and recommendation port traffic manager is working on hospice placement Appreciate WASH OIL PUMP OPERATOR input and recommendation for possible further exploration and extensive procedure for the uterine mass Discussed with the daughter and also the palliative service- the daughter does not want her to go through any further exploration or management for the uterine mass She has been put for comfort care measures and likely to be transferred to a facility with hospice or home with hospice down the line This was again discussed with the daughter in presence of the patient Severe malnutrition Nutritional assessment Vascular dementia delirium precautions Poor Po Intake Unintentional weight loss, 16lbs in last 1.5 months recently started on mirtazapine, consult employment officer History of pulmonary embolism/DVT On Eliquis - this is currently on hold given vaginal bleeding CKD stage III stable cr Chronic HFpEF EF 55-60% on 03/21 Pt dry on exam Glaucoma Continue eyedrops Hyperlipidemia Statin Hypertension On lisinopril, hold 2/2 lower bp DVT prophylaxis Eliquis on hold, SCDS Disposition admit to PCU Full code - discussed with daughter, wishes are for full code based at this time given her mothers wishes and living will Remains critical and comfortable Admission and Anticipated Discharge Date Admission Date: May 09, 2024 Subjective 05/10/2024 The patient was seen and examined in telemetry unit in presence of the family members She has been complaining of lower abdominal pain and also left inguinal area pain secondary to uterine mass with metastasis Still having vaginal bleeding and awaiting WASH OIL PUMP OPERATOR evaluation Pain is reasonably controlled 05/11/2024 The patient was seen and examined in telemetry unit in presence of the daughter She has been very drowsy today and remains extremely weak and lethargic Denies any significant symptoms otherwise 05/12/2024 The patient was seen and examined in medical floor in presence of the daughter She has been minimally responsive and does not seems to be in any distress The daughter wanted to have some IV fluid if possible until the family members come and see her - 05/13/2024 The patient was seen and examined in medical floor She has been stable and remains comfortable Has not been communicating but opening eyes when asked 05/14/2024 The patient was seen and examined in medical floor She remains stable and only moans whenever she is asked something 05/15/2024 The patient was seen and examined in medical floor She remains comfortable 05/16/2024 The patient was seen and examined in medical floor She was seen by the palliative care today. She remains comfortable Physical Exam Physical Exam: lying in bed comfortably Constitutional: + ill appearing and + cachectic Eyes: PERRL, conjunctivae normal, anicteric sclerae ENMT: external ear and nose normal, oropharynx normal Neck: trachea midline, no thyromegaly Respiratory: no respiratory distress Auscultation: lungs clear to auscultation bilaterally Cardiovascular: Rate/Rhythm: regular rate and regular rhythm; not tachycardic Heart Sounds: normal S1 and normal S2; no murmur Extremities: no edema Gastrointestinal (Abdomen): Percussion/Palpation: abdomen soft Results & Data Results & Data Vital Signs (Past 12 Hours) Vital Signs O2 Del Method 05/16/24 07:34 Room Air
--- NOTE | 2024-05-17 11:49 | Hospitalist Progress Note ---
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 She was seen by Palliative Medicine. 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) Continue pain and anxiety medications She seems comfortable at present Continue current pain management as directed No issues overnight and remains stable without any pain and/or distress Admission and Anticipated Discharge Date Admission Date: May 09, 2024 Subjective Julia Echeverria is a 78-year-old female with past medical history significant for mixed hyperlipidemia, history of hypercalcemia, history of hyperparathyroidism, history of multiple thyroid nodules, history of CKD stage III, history of moderate tricuspid regurgitation, diastolic dysfunction, GERD, CKD stage III, generalized osteoarthritis, glaucoma, history of spinal stenosis, history of PE/DVT in 2019 on eliquis. She presented to ED secondary to vaginal bleeding. She was seen by palliative Medicine and is now on comfort measures only status Review of Systems Review of Systems: Unobtainable. per nursing Physical Exam Physical Exam: General- not responsive. seems comfortable at present Head- atraumatic Neck- no JVD Lungs- poor effort otherwise clear to auscultation and percussion Heart- tachy at 104 Abdomen- soft, nontender Extremities- no pretibial edema Neuro- not responsive Skin- warm & dry Results & Data Results & Data Vital Signs (Past 12 Hours) Vital Signs O2 Del Method 05/17/24 07:22 Room Air Diagnostic Findings Laboratory Results WBC 15.82 K/ul (4.8-10.8) H 05/10/24 05:19 RBC 2.94 M/uL (4.20-5.40) L 05/10/24 05:19 Hgb 8.4 g/dl (12.0-16.0) L 05/10/24 16:55 Hct 26.8 % (37.0-47.0) L 05/10/24 16:55 MCV 84.4 fL (80.0-100.0) 05/10/24 05:19 MCH 27.6 pg (25.0-34.0) 05/10/24 05:19 MCHC 32.7 g/dL (32.0-36.0) 05/10/24 05:19 RDW Std Deviation 50.5 fL (36.4-46.3) H 05/10/24 05:19 RDW Coeff of Oscar 16.8 % (11.5-14.5) H 05/10/24 05:19 Plt Count 289 K/uL (130-400) 05/10/24 05:19 MPV 10.3 fL (9.4-12.4) 05/10/24 05:19 Immature Gran % (Auto) 0.8 % 05/10/24 05:19 Neut % (Auto) 76.5 % 05/10/24 05:19 Lymph % (Auto) 11.6 % 05/10/24 05:19 Garrard % (Auto) 10.4 % 05/10/24 05:19 Eos % (Auto) 0.3 % 05/10/24 05:19 Baso % (Auto) 0.4 % 05/10/24 05:19 Neut # (Auto) 12.10 K/uL (1.40-6.50) H 05/10/24 05:19 Lymph # (Auto) 1.83 K/uL (1.20-3.40) 05/10/24 05:19 Garrard # (Auto) 1.65 K/uL (0.11-0.59) H 05/10/24 05:19 Eos # (Auto) 0.05 K/uL (0.00-0.50) 05/10/24 05:19 Baso # (Auto) 0.06 K/uL (0.00-0.20) 05/10/24 05:19 Immature Gran # (Auto) 0.13 K/uL (0.01-0.20) 05/10/24 05:19 Absolute Nucleated RBC 0.07 K/uL (0.00-0.12) 05/10/24 05:19 Nucleated RBC % (auto) 0.4 % 05/10/24 05:19 Polychromasia 2+ 05/09/24 14:25 Ovalocytes 1+ 05/09/24 14:25 Echinocytes 1+ 05/09/24 14:25 Sodium 137 mmol/L (136-145) 05/10/24 05:19 Potassium 3.9 mmol/L (3.5-5.1) 05/10/24 05:19 Chloride 108 mmol/L (98-107) H 05/10/24 05:19 Carbon Dioxide 23 mmol/L (21-32) 05/10/24 05:19 Anion Gap 6 (3-11) 05/10/24 05:19 BUN 18 mg/dl (6-23) 05/10/24 05:19 Creatinine 0.89 mg/dl (0.6-1.2) 05/10/24 05:19 Est Cr Clr Drug Dosing 54.2 ml/min 05/10/24 05:19 eGFR 67.15 05/10/24 05:19 BUN/Creatinine Ratio 20.2 (10-20) H 05/10/24 05:19 Glucose 97 mg/dl (70-99(Fasting)) 05/10/24 05:19 Lactate 1.7 mmol/L (0.4-2.0) 05/10/24 05:21 Calcium 9.6 mg/dl (8.6-10.3) 05/10/24 05:19 Total Bilirubin 0.4 mg/dl (0.2-1.0) 05/10/24 05:19 AST 28 U/L (13-39) 05/10/24 05:19 ALT 6 U/L (7-52) L 05/10/24 05:19 Alkaline Phosphatase 57 U/L (34-104) 05/10/24 05:19 Total Protein 6.2 gm/dl (6.0-8.3) 05/10/24 05:19 Albumin 2.6 gm/dl (3.4-5.0) L 05/10/24 05:19 Globulin 3.6 gm/dl (2.5-4.0) 05/10/24 05:19 Albumin/Globulin Ratio 0.7 (0.9-2) L 05/10/24 05:19 Lipase 7 U/L (11-82) L 05/09/24 14:25 Procalcitonin 0.49 ng/ml (0-0.5) 05/09/24 16:44 Urine Color Yellow 05/09/24 17:31 Urine Appearance Clear (Clear) 05/09/24 17:31 Urine pH 5.0 (4.5-7.5) 05/09/24 17:31 Ur Specific [place] > 1.045 (1.000-1.030) H 05/09/24 17:31 Urine Protein Negative (Negative) 05/09/24 17:31 Urine Glucose (UA) Negative (Negative) 05/09/24 17:31 Urine Ketones Negative (Negative) 05/09/24 17:31 Urine Blood Negative (Negative) 05/09/24 17:31 Urine Nitrite Negative (Negative) 05/09/24 17:31 Urine Bilirubin Negative (Negative) 05/09/24 17:31 Urine Urobilinogen Negative (Negative) 05/09/24 17:31 Ur Leukocyte Esterase Negative (Negative) 05/09/24 17:31 Nasal Screen MRSA (PCR) Negative (Negative) 05/09/24 21:40 Blood Type A Positive 05/09/24 16:44 Antibody Screen NEGATIVE 05/09/24 16:44 Crossmatch See Detail 05/09/24 16:44 Impressions Abdomen/Pelvis CT 05/09/24 14:07 CT OF THE ABDOMEN AND PELVIS WITH CONTRAST CLINICAL HISTORY: Abdominal pain. COMPARISON STUDY: CT of the abdomen and pelvis March 28, 2024. TECHNIQUE: Following IV administration of 93 mL of Optiray, axial images of the abdomen and pelvis were obtained from the lung bases to the proximal femurs. Images were reviewed in the axial, sagittal, and coronal planes. IV contrast was administered without complication. Automated exposure control was utilized for the study. A dose lowering technique was utilized adhering to the principles of ALARA. CT DOSE: 702.18 mGy.cm FINDINGS: No pneumatosis, free air or portal venous gas is present. Several hypodense hepatic lesions favor cysts. There is no biliary or pancreatic ductal dilatation. Spleen, adrenal glands, left kidney and pancreas are unremarkable. A few suspected renal cysts are present. There is no hydronephrosis. 9 mm right renal calculus is noted. There are no ureteral calculi. There is no hydronephrosis. There is no evidence for a bowel obstruction. There is colonic diverticulosis without evidence for acute diverticulitis. The uterus is markedly enlarged and heterogeneous. The endometrium is markedly distended and contains enhancing material. Conglomerate parauterine enhancing tissue extends into the adnexa. In addition, there is extensive abdominal and pelvic lymphadenopathy. Index right retrocrural lymph node on image 86 of 357 measures 1.9 x 1.7 cm. Retroperitoneal lymphadenopathy encases the abdominal aorta and IVC. Index conglomerate left para-aortic brianne mass on image 154 measures 5.8 x 4.7 cm. Index left pelvic sidewall lymph node on image 241 measures 3.7 x 2.4 cm. A right pelvic sidewall lymph node on image 233 measures 2.7 x 2.5 cm. This lymphadenopathy has progressed since prior CT. Multiple small right retroperitoneal nodules measure up to 6 mm. Multiple suspected small omental/peritoneal implants measure up to 9 mm. IMPRESSION: 1. Enlarged uterus with markedly thickened, heterogeneous endometrium. Conglomerate parauterine enhancing tissue which extends into the adnexa. The findings are neoplastic and favor endometrial carcinoma. Gynecologic consultation is recommended. 2. Extensive retroperitoneal/retrocrural and pelvic lymphadenopathy consistent with brianne metastases. Suspected small omental/peritoneal implants and several small right retroperitoneal implants. 3. No evidence for a bowel obstruction. 4. 9 mm right renal calculus. No ureteral calculi. No hydronephrosis. ACT 112: Positive. There are findings on this exam that require communication between the performing entity and the patient following Patient Test Result Information Act ([place] Act 112) guidelines. Electronically signed by: Scot Bateman M.D. 05/09/2024 3:54 PM Pelvis Ultrasound 05/09/24 14:44 US pelvic complete HISTORY: 78 years-old Female vaginal bleeding acute vaginal bleeding with known endometrial lesion COMPARISON: CT of same day TECHNIQUE: Multiple real-time and static images of the deep pelvic structures were obtained transabdominally assessing grayscale appearance, color and spectral flow FINDINGS: Limited exam secondary to patient pain and discomfort. The uterus measures 14.1 x 7.6 x 12.3 cm and is heterogeneous with numerous uterine masses. The largest mass is within the right uterus measuring 6 cm. Endometrium measures approximately 4 cm and demonstrates internal flow. Ovaries are not diagnostica lly visualized. No significant free pelvic fluid. The adnexal/parauterine lesions are again noted, better seen on the CT study. IMPRESSION: 1. Limited exam as above. 2. Heterogeneous enlarged uterus with numerous masses including a large endometrial mass suggestive of neoplasm. Please refer to the CT abdomen and pelvis of same day for additional findings including the para-uterine lesions. Follow-up with gynecology is recommended. 3. Nonvisualization of the ovaries. ACT 112: Negative or not required by law. The above report was generated using voice recognition software. It may contain grammatical, syntax or spelling errors. Electronically signed by: Luis Aranda M.D. 05/09/2024 4:06 PM Chest X-Ray 05/09/24 16:35 INDICATION: Cough. TECHNIQUE: Frontal radiograph of the chest. COMPARISON: Radiograph from 03/20/2024. FINDINGS: Low inspiratory depth. Mild cardiomegaly. Pulmonary vasculature appear within normal limits. Chronic appearing interstitial lung markings, similar to prior. No infiltrate, pleural effusion or pneumothorax. No acute osseous abnormality evident. IMPRESSION: No acute cardiopulmonary process. Electronically signed by Niles Stafford 05-09-2024 5:30 PM (8) Metastatic cancer Area of secondary neoplastic involvement: unspecified site Qualified Code(s): C79.9 - Secondary malignant neoplasm of unspecified site (9) Anemia Anemia type: unspecified type Qualified Code(s): D64.9 - Anemia, unspecified
[2024-05-17] MEDS: MoRPHine SULFATE 2 MG/ML CARP IV SCH (12:45)
--- NOTE | 2024-05-17 13:16 | Palliative Care Progress Note ---
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 Please page with any additional concerns. Archie Adams DNP Director, Palliative Medicine Admission and Anticipated Discharge Date Admission Date: May 09, 2024 Subjective moaning in bed no family present grimacing pale complexion Review of Systems Review of Systems: Unobtainable due to reduced consciousness Physical Exam Constitutional: + ill appearing, + altered mental status , + physical limitations, + frail appearing, + in distress and + lethargic Eyes: + eyes dysmorphic ENMT: oral mucosa sl dry Neck: normal visual inspection and trachea midline Thyroid: normal thyroid Respiratory: + labored breathing Cardiovascular: Rate/Rhythm: + tachycardic and + irregularly irregular Gastrointestinal (Abdomen): Inspection/Auscultation: + abdomen distended (firmer) Percussion/Palpation: + abdomen tender and + guarding moaning and grimacing with abd palpation Musculoskeletal: gen weakness Skin: + turgor decreased pale, cool extremities without cyanosis no mottling trace edema Neurologic: + obtunded grimacing furrowed brow moaning at times wincing with abd exam Results & Data Vital Signs (Past 12 Hours) Vital Signs O2 Del Method 05/17/24 07:22 Room Air PG Care Time/CCT Total # of Minutes Spent Total Time Spent: 45 Total Time Spent with Patient: Total time spent is greater than 50% in coordination of care (as documented) at patient's floor/unit and/or counseling patient: Coding [place] [address] SUB INP/OBS CARE 3/50MIN Patient Type Established History Comprehensive Exam Comprehensive Medical Decision Making Moderate Complexity Diagnoses Cancer related pain G89.3 Dyspnea and respiratory abnormalities R06.00; R06.89 Palliative care by specialist Z51.5 Need for comfort care Metastatic cancer C79.9 Area of secondary neoplastic involvement: unspecified site 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
--- NOTE | 2024-05-18 15:27 | Palliative Care Progress Note ---
Date of Service May 18, 2024 Assessment & Plan (1) Need for comfort care: (2) Dyspnea and respiratory abnormalities: (3) Cancer related pain: Plan ongoing comfort directed care, PRN orders for symptom as above (medications section) Admission and Anticipated Discharge Date Admission Date: May 09, 2024 Subjective Pt sleeping soundly in bed, unresponsive to verbal or gentle tactile stimuli. Did not awaken her in concert with comfort directed care. She appears comfortable and in NAD on room air. VSS. Son Mahin was at bedside and shared that he feels she is more alert today (intermittently) and appears very comfortable. Review of Systems Review of Systems: BERTIN, pt noncommunicative Physical Exam Constitutional: + ill appearing, + altered mental status , + physical limitations, + frail appearing and + lethargic; not in distress Eyes: + eyes dysmorphic ENMT: oral mucosa dry Neck: normal visual inspection and trachea midline Thyroid: normal thyroid Respiratory: no respiratory distress and no labored breathing Rr 14/min and regular Cardiovascular: Rate/Rhythm: + tachycardic and + irregularly irregular Gastrointestinal (Abdomen): Inspection/Auscultation: + abdomen distended (firmer) Percussion/Palpation: abdomen soft; no guarding grimacing with abd palpation Musculoskeletal: gen weakness Skin: + turgor decreased pale, cool extremities without cyanosis no mottling trace edema Neurologic: + obtunded grimacing with abd exam Results & Data Vital Signs (Past 12 Hours) Vital Signs Temp 36.6 C 05/14/24 07:28 Pulse 99 H 05/14/24 07:28 Resp 14 05/14/24 07:28 BP 92/62 L 05/14/24 07:28 Pulse Ox 98 05/14/24 07:28 O2 Del Method Room Air 05/18/24 07:00 Intake & Output 05/17/24 05/18/24 05/18/24 18:59 06:59 18:59 Intake Total 0 / 0 Output Total 75 / 75 Balance -75 / -75 Intake: Tube Irrigant 0 / 0 Output: Urine Amount (Catheter) 75 / 75 Silver/Indwelling 75 / 75 Vital Signs O2 Del Method 05/18/24 07:00 Room Air Medications Administered 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 Last 24hr palliative medications: Total = 54 OME scheduled IV morphine 2mg q4h 6x =12mg = 27 OME PRN morphine 4mg IV 3x = 12mg = 27 OME Ativan 1mg once Current Inpatient Medications Glycopyrrolate (Glycopyrrolate 0.2 Mg/Ml Vial) 0.4 mg IV Q4H PRN PRN Reason: Rattling Secretions or Pulm Congestion Stop: 06/10/24 10:53 Lorazepam (Lorazepam 2 Mg/1 Ml Vial) 1 mg IV Q4H PRN PRN Reason: Anxiety/Agitation Stop: 06/10/24 10:53 Last Admin: 05/18/24 09:20 Dose: 1 mg Morphine Sulfate (Morphine Sulfate 2 Mg/Ml Carp) 4 mg IV Q1H PRN PRN Reason: terminal dyspnea,severe pain Stop: 05/25/24 10:53 Last Admin: 05/18/24 13:51 Dose: 4 mg Morphine Sulfate (Morphine Sulfate 2 Mg/Ml Carp) 2 mg IV Q4H NAIDA Stop: 05/31/24 11:59 Last Admin: 05/18/24 12:04 Dose: 2 mg Ondansetron HCl (Ondansetron Inj 2 Mg/Ml 2 Ml Vial) 4 mg IV Q4H PRN PRN Reason: Nausea &/or Vomiting Stop: 06/10/24 10:53 PG Care Time/CCT Total # of Minutes Spent Total Time Spent with Patient: Total time spent is greater than 50% in coordination of care (as documented) at patient's floor/unit and/or counseling patient: Coding Patient Type Established History Problem Focused Exam Problem Focused Medical Decision Making Moderate Complexity Diagnoses Need for comfort care Dyspnea and respiratory abnormalities R06.00; R06.89 Cancer related pain G89.3
--- NOTE | 2024-05-18 17:27 | Hospitalist Progress Note ---
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 She was seen by Palliative Medicine. 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 She is minimally responsive to verbal and tactile stimuli. She seems comfortable at this time. Nimbix music is playing for her in the background. Review of Systems Review of Systems: Unobtainable due to cognitive status Physical Exam Physical Exam: General- not responsive. seems comfortable at present Head- atraumatic Neck- no JVD Lungs- poor effort otherwise clear to auscultation and percussion Heart-regular Extremities- no pretibial edema Neuro- not responsive Skin- warm & dry Results & Data Results & Data Vital Signs (Past 12 Hours) Vital Signs O2 Del Method 05/18/24 07:00 Room Air (8) Metastatic cancer Area of secondary neoplastic involvement: unspecified site Qualified Code(s): C79.9 - Secondary malignant neoplasm of unspecified site (9) Anemia Anemia type: unspecified type Qualified Code(s): D64.9 - Anemia, unspecified
--- NOTE | 2024-05-19 17:18 | Hospitalist Progress Note ---
Date of Service May 19, 2024 Assessment & Plan (1) Dyspnea and respiratory abnormalities: (2) Need for comfort care: (3) Cancer related pain: (4) Acute urinary retention: (5) Post-menopausal bleeding: (6) Discussion about advance care planning held with family member: (7) Palliative care by specialist: (8) Metastatic cancer: (9) Anemia: (10) Endometrial mass: Plan ASSESSMENT AND PLAN: (1) Endometrial mass: (2) 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: (3) Vaginal bleeding: (4) Anemia due to chronic blood loss: (5) Hypercalcemia: Plan In summary, Julia Echeverria is a 78-year-old female with past medical history significant for mixed hyperlipidemia, history of hypercalcemia, history of hyperparathyroidism, history of multiple thyroid nodules, history of CKD stage III, history of moderate tricuspid regurgitation, diastolic dysfunction, GERD, CKD stage III, generalized osteoarthritis, glaucoma, history of spinal stenosis, history of PE/DVT in 2019 on eliquis who presented to ED secondary to vaginal bleeding. She was seen by Palliative Medicine. 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 unresponsive to verbal or gentle tactile stimuli. She appears comfortable and in NAD on room air. Review of Systems Review of Systems: Unobtainable. per nursing Physical Exam Physical Exam: General- not responsive. seems comfortable at present Head- atraumatic Neck- no JVD Lungs- poor effort otherwise clear to auscultation and percussion Heart-regular Extremities- no pretibial edema Neuro- not responsive Skin- warm & dry Results & Data Results & Data Vital Signs (Past 12 Hours) Vital Signs O2 Del Method 05/19/24 07:24 Room Air (8) Metastatic cancer Area of secondary neoplastic involvement: unspecified site Qualified Code(s): C79.9 - Secondary malignant neoplasm of unspecified site (9) Anemia Anemia type: unspecified type Qualified Code(s): D64.9 - Anemia, unspecified
--- NOTE | 2024-05-19 21:40 | Palliative Care Progress Note ---
Date of Service May 19, 2024 Assessment & Plan (1) Need for comfort care: (2) Dyspnea and respiratory abnormalities: (3) Cancer related pain: Plan ongoing comfort directed care, PRN orders for symptom as above (medications section) reinforce anticipatory guidance with family. Admission and Anticipated Discharge Date Admission Date: May 09, 2024 Subjective Pt seen at bedside. unresponsive to verbal or gentle tactile stimuli, did not awaken in concert with comfort directed care. She appears comfortable and in NAD on room air. Review of Systems Review of Systems: Unobtainable due to cognitive status Physical Exam Constitutional: + ill appearing, + altered mental status , + physical limitations, + frail appearing and + lethargic; not in distress Eyes: + eyes dysmorphic ENMT: oral mucosa dry Neck: normal visual inspection and trachea midline Thyroid: normal thyroid Respiratory: no respiratory distress and no labored breathing Rr 14/min and regular Cardiovascular: Rate/Rhythm: + tachycardic and + irregularly irregular Gastrointestinal (Abdomen): Inspection/Auscultation: + abdomen distended (firmer) Percussion/Palpation: abdomen soft; no guarding grimacing with abd palpation Musculoskeletal: gen weakness Skin: + turgor decreased pale, cool extremities without cyanosis no mottling trace edema Neurologic: + obtunded grimacing with abd exam Results & Data Vital Signs (Past 12 Hours) Vital Signs Temp 36.6 C 05/14/24 07:28 Pulse 99 H 05/14/24 07:28 Resp 14 05/14/24 07:28 BP 92/62 L 05/14/24 07:28 Pulse Ox 98 05/14/24 07:28 O2 Del Method Room Air 05/19/24 07:24 Intake & Output 05/19/24 05/19/24 05/20/24 06:59 18:59 06:59 Weight 76.7 kg Medications Administered Last 24hr palliative medications: Total = 54 OME scheduled IV morphine 2mg q4h 6x =12mg = 27 OME PRN morphine 4mg IV 3x = 12mg = 27 OME Ativan 1mg once Home Medications Medication Instructions Recorded Confirmed Last Taken apixaban 5 mg tablet (Eliquis) 5 mg PO BID 03/21/24 05/09/24 Unknown brimonidine 0.2 %-timolol 0.5 % 1 drp OPB BID 03/21/24 05/09/24 Unknown eye drops cholecalciferol (vitamin D3) 25 25 mcg PO DAILY 03/21/24 05/09/24 Unknown mcg (1,000 unit) tablet dorzolamide 2 % eye drops 1 drp OPB TID 03/21/24 05/09/24 Unknown lisinopril 5 mg tablet 5 mg PO DAILY 03/21/24 05/09/24 Unknown pantoprazole 40 mg tablet,delayed 40 mg PO DAILY 03/21/24 05/09/24 Unknown release potassium chloride 10 mEq 20 meq PO DAILY 03/21/24 05/09/24 Unknown tablet,extended release rosuvastatin 10 mg tablet 10 mg PO DAILY 03/21/24 05/09/24 Unknown aspirin 81 mg tablet,delayed 81 mg PO DAILY #30 tabs 03/29/24 05/09/24 Unknown release magnesium chloride 64 mg 64 mg PO BID #60 tabs 03/29/24 05/09/24 Unknown (magnesium chloride) tablet,delayed release acetazolamide 500 mg 500 mg PO BID 05/09/24 05/09/24 Unknown capsule,extended release mirtazapine 7.5 mg tablet 7.5 mg PO HS 05/09/24 05/09/24 Unknown Active Medications Generic Name Dose Route Start Last Admin Trade Name Freq PRN Reason Stop Dose Admin Lorazepam 1 mg 05/11/24 10:54 05/19/24 16:59 Lorazepam 2 Mg/1 Ml Vial IV 06/10/24 10:53 1 mg Q4H PRN Administration Anxiety/Agitation Morphine Sulfate 4 mg 05/16/24 12:58 05/19/24 11:06 Morphine Sulfate 2 Mg/Ml Carp IV 05/25/24 10:53 4 mg Q1H PRN Administration terminal dyspnea,severe pain Morphine Sulfate 2 mg 05/17/24 12:00 05/19/24 21:05 Morphine Sulfate 2 Mg/Ml Carp IV 05/31/24 11:59 2 mg Q4H NAIDA Administration PG Care Time/CCT Total # of Minutes Spent Total Time Spent with Patient: Total time spent is greater than 50% in coordination of care (as documented) at patient's floor/unit and/or counseling patient: Coding Patient Type Established History Problem Focused Exam Problem Focused Medical Decision Making Moderate Complexity Diagnoses Need for comfort care Dyspnea and respiratory abnormalities R06.00; R06.89 Cancer related pain G89.3
[2024-05-20] MEDS ORDERED: STAT IV Infusion **Titration per Protocol STA (13:38)
[2024-05-20] MEDS: MoRPHine SULF 100 MG/100 ML BAG IV SCH (14:20)
[2024-05-20] MEDS: MoRPHine BOLUS from BAG IV PRN (15:44)
--- NOTE | 2024-05-20 16:23 | Hospitalist Progress Note ---
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 She was seen by Palliative Medicine. 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 Appreciate palliative care medicine consult and recommendations No issues overnight and remains comfortable. Admission and Anticipated Discharge Date Admission Date: May 09, 2024 Subjective Pt seen at bedside. unresponsive to verbal or gentle tactile stimuli, did not awaken given pt in comfort directed care. She appears comfortable and in NAD on room air. Per RN, pt w/ increased need for morphine bolus, hence morphine drip per protocol has been started. Physical Exam Physical Exam: General- not responsive. seems comfortable at present Head- atraumatic Neck- no JVD Lungs- poor effort otherwise clear to auscultation and percussion Heart-regular Extremities- no pretibial edema Neuro- not responsive Skin- warm & dry Results & Data Results & Data Vital Signs (Past 12 Hours) Vital Signs O2 Del Method 05/20/24 08:40 Room Air (8) Metastatic cancer Area of secondary neoplastic involvement: unspecified site Qualified Code(s): C79.9 - Secondary malignant neoplasm of unspecified site (9) Anemia Anemia type: unspecified type Qualified Code(s): D64.9 - Anemia, unspecified
--- NOTE | 2024-05-21 14:55 | Hospitalist Progress Note ---
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 She was seen by Palliative Medicine. 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 Appreciate palliative care medicine consult and recommendations No issues overnight and remains comfortable. Admission and Anticipated Discharge Date Admission Date: May 09, 2024 Subjective Pt seen at bedside. unresponsive to verbal or gentle tactile stimuli, did not awaken given pt in comfort directed care. She appears comfortable and in NAD on room air. Per RN, pt w/ increased need for morphine drip. Physical Exam Physical Exam: General- not responsive. seems comfortable at present Head- atraumatic Neck- no JVD Lungs- poor effort otherwise clear to auscultation and percussion Heart-regular Extremities- no pretibial edema Neuro- not responsive Skin- warm & dry Results & Data Results & Data Vital Signs (Past 12 Hours) Vital Signs O2 Del Method 05/21/24 08:00 Room Air (8) Metastatic cancer Area of secondary neoplastic involvement: unspecified site Qualified Code(s): C79.9 - Secondary malignant neoplasm of unspecified site (9) Anemia Anemia type: unspecified type Qualified Code(s): D64.9 - Anemia, unspecified
--- NOTE | 2024-05-22 15:16 | Hospitalist Progress Note ---
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 She was seen by Palliative Medicine. 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 Appreciate palliative care medicine consult and recommendations No issues overnight and remains comfortable. Admission and Anticipated Discharge Date Admission Date: May 09, 2024 Subjective Pt seen at bedside. unresponsive to verbal or gentle tactile stimuli, did not awaken given pt in comfort directed care. She appears comfortable and in NAD on room air. Per RN, pt remains comfortable. Physical Exam Physical Exam: General- not responsive. seems comfortable at present Head- atraumatic Neck- no JVD Lungs- poor effort otherwise clear to auscultation and percussion Heart-regular Extremities- no pretibial edema Neuro- not responsive Skin- warm & dry Results & Data Results & Data Vital Signs (Past 12 Hours) Vital Signs O2 Del Method 05/22/24 09:00 Room Air (8) Metastatic cancer Area of secondary neoplastic involvement: unspecified site Qualified Code(s): C79.9 - Secondary malignant neoplasm of unspecified site (9) Anemia Anemia type: unspecified type Qualified Code(s): D64.9 - Anemia, unspecified
--- NOTE | 2024-05-23 10:16 | Palliative Care Progress Note ---
Date of Service May 23, 2024 Assessment & Plan Plan ongoing comfort directed care, PRN orders for symptom as above (medications section) reinforce anticipatory guidance with family. Admission and Anticipated Discharge Date Admission Date: May 09, 2024 Review of Systems Review of Systems: Unobtainable due to cognitive status Physical Exam Constitutional: + ill appearing, + altered mental status , + physical limitations, + frail appearing and + lethargic; not in distress Eyes: + eyes dysmorphic ENMT: oral mucosa dry Neck: normal visual inspection and trachea midline Thyroid: normal thyroid Respiratory: no respiratory distress and no labored breathing Rr 14/min and regular Cardiovascular: Rate/Rhythm: + tachycardic and + irregularly irregular Gastrointestinal (Abdomen): Inspection/Auscultation: + abdomen distended (firmer) Percussion/Palpation: abdomen soft; no guarding grimacing with abd palpation Musculoskeletal: gen weakness Skin: + turgor decreased pale, cool extremities without cyanosis no mottling trace edema Neurologic: + obtunded grimacing with abd exam Results & Data Vital Signs (Past 12 Hours) Vital Signs O2 Del Method 05/23/24 07:36 Room Air Medications Administered Current Inpatient Medications Glycopyrrolate (Glycopyrrolate 0.2 Mg/Ml Vial) 0.4 mg IV Q4H PRN PRN Reason: Rattling Secretions or Pulm Congestion Stop: 06/10/24 10:53 Morphine Sulfate (Morphine Sulf) 100 mg in 100 mls @ 2 mls/hr IV .Q50H NAIDA; Protocol Stop: 06/03/24 13:44 Last Titration: 05/23/24 07:05 Dose: 2 mg/hr, 2 mls/hr Lorazepam (Lorazepam 2 Mg/1 Ml Vial) 1 mg IV Q4H PRN PRN Reason: Anxiety/Agitation Stop: 06/10/24 10:53 Last Admin: 05/21/24 10:24 Dose: 1 mg Morphine Sulfate (Morphine Bolus From Bag) 1 mg IV Q30M PRN PRN Reason: Comfort Care Parameters Stop: 06/03/24 13:37 Last Admin: 05/22/24 05:53 Dose: 1 mg Ondansetron HCl (Ondansetron Inj 2 Mg/Ml 2 Ml Vial) 4 mg IV Q4H PRN PRN Reason: Nausea &/or Vomiting Stop: 06/10/24 10:53 Last 24hr PRN palliative medications: Total of 122.5 OME continuous infusion morphine 2mg/hr PRN morphine 1mg IV Ativan none PG Care Time/CCT Total # of Minutes Spent Total Time Spent with Patient: Total time spent is greater than 50% in coordination of care (as documented) at patient's floor/unit and/or counseling patient: Coding Patient Type Established Medical Decision Making Moderate Complexity
--- NOTE | 2024-05-23 13:49 | Death Pronouncement Note ---
Date of Service May 23, 2024 Pronouncement Note Admission Date May 09, 2024 Date and Time of Date of : 05/23/24 Time of : 13:28 Summary Refer to discharge summary. Time of : 1328 hrs. on 05/23/2024. Cause of : Cardiopulmonary arrest secondary to severe anemia secondary to vaginal bleeding secondary to malignant neoplasm of endometrium with intra- abdominal spread to lymph nodes and peritoneum. Additional Data Confirmation of : no pulse, no respirations, no heart sounds and pupils fixed and dilated Family: at bedside Attending physician: Lorenzo Hahn MD Was code activated?: No Autopsy requested?: No
--- NOTE | 2024-05-23 13:51 | Discharge Summary ---
Date of Service May 23, 2024 Admission HPI Per Admitting Provider Julia Echeverria is a 78-year-old female with past medical history significant for mixed hyperlipidemia, history of hypercalcemia, history of hyperparathyroidism, history of multiple thyroid nodules, history of CKD stage III, history of moderate tricuspid regurgitation, diastolic dysfunction, GERD, CKD stage III, generalized osteoarthritis, glaucoma, history of spinal stenosis, history of PE/DVT in 2020 on eliquis who presents to ED secondary to vaginal bleeding. Of significance patient was last hospitalized on 03/21 to 03/28 secondary to acute encephalopathy in setting of urinary tract infection. She was treated with IV antibiotics. She did develop delirium. She was eventually discharged to [facility]. Since being at her side patient has lost 16 pounds. She has had overall poor intake, nausea and early satiety. She also continues to have intermittent vaginal bleeding with some days being very heavy and some days being very light. Her provider at [facility] recently held her Eliquis. Due to the worsening of her bleeding she was referred to ED due to concern for requiring transfusion. History is obtained from daughter and friend at bedside. History unobtainable from patient. History also obtained from chart review. In ED patient was tachycardic. Her blood pressures were borderline low. She have a significant leukocytosis at 18k, hemoglobin is 7.8, lactate 3.2 and corrected calcium at 11.4. She was provided IV Zosyn. Admission Exam Per Admitting Provider Gen: Thin, fraile, elderly F, lying in bed, sleeping, NAD HEENT: Normocephalic, atraumatic, b/l temporal wasting mucous membranes dry Lung: no audible w/r/r Heart: tachycardic Abdomen: Soft, NT, ND +BS x 4 Extremities: No edema Skin: Warm, no rash Principal Diagnosis vaginal bleeding Discharge Data Allergies Allergy/AdvReac Type Severity Reaction Status Date / Time atorvastatin AdvReac stomach Verified 02/08/24 07:16 upset. brand name ok Consultations 05/09/24 16:28 ED Decision to Admit Stat 05/09/24 17:16 Consult Palliative Care Routine 05/09/24 17:21 Consult Gynecology Routine Ordered Studies 05/09/24 14:07 CT abd pelvis IV con only Stat 05/09/24 14:44 US pelvic complete Stat Hospital Course (1) Dyspnea and respiratory abnormalities: (2) Need for comfort care: (3) Cancer related pain: (4) Acute urinary retention: (5) Post-menopausal bleeding: (6) Discussion about advance care planning held with family member: (7) Palliative care by specialist: (8) Metastatic cancer: (9) Anemia: (10) Endometrial mass: Plan Patient was being managed for the following: (1) Endometrial mass: (2) 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 Cause of : Cardiopulmonary arrest secondary to severe anemia secondary to vaginal bleeding secondary to malignant neoplasm of endometrium with intra-abdominal spread to lymph node and peritoneum. Home Health Attestation I certify that this patient is under my care and that I, or a physicians central supply assistant working with me, had a face to-face encounter that meets the home health [id number] encounter requirements with this patient. The encounter with the patient was in whole, or in part, for the following medical condition, which is the primary reason for home health care (list medical condition): I certify that, based on my findings, the following services are medically necessary home health services: My clinical findings support the need for the above services because: Further, I certify that my clinical findings support that this patient is homebound (i.e. absences from home require considerable and taxing effort and are for medical reasons or faith services or infrequently or of short duration when for other reasons) because: Certification for Home Health Services: Based on the above findings, I certify that this patient is confined to the home and needs intermittent shelter care, physical therapy and/or speech therapy or continues to need occupational therapy. The patient is under my care, and I have initiated the establishment of the plan of care. This patient will be followed by a physician who will periodically review the plan of care. Total Time Total Time Spent Total Time Spent (In Minutes): 35 Discharge Plan Discharge Items Patient Disposition: Other Date/Time: 05/23/24 13:28
== END 2024-05-23 16:45 | disposition expired | DRG 754 ==
LOC: ED 13:47 → 2S 17:16 → SUATTDRO 17:16 → 2S 19:24 → 3E 05-11 17:29